=== PATIENT | female | born 1950 | race Caucasian/White ===

== ENCOUNTER 2017-08-17 10:30 | Outpatient (RCR) | payer MEDICARE, OTHER, SELFPAY ==
--- NOTE | 2017-07-03 15:32 | PT.OIE ---
Current Diagnoses Unilateral primary osteoarthritis, right knee (07/03/17) Presence of right artificial knee joint (07/03/17) Past Medical History (Last Reviewed 07/03/17 @ 14:44 by Mariola Xavier, PT) Arthritis (Chronic) Back pain (Chronic) Past Surgical History (Last Reviewed 07/03/17 @ 14:44 by Mariola Xavier, PT) S/P total knee arthroplasty (Acute) Hx of total knee arthroplasty (Chronic) Provider Visit Care Team Role Provider Type Johan Theodore MD Attending Provider Non-Staff Family Provider Primary Care Provider Specialty: Medical Address: [address] [place] [address], [facility] Phone: Fax: Email: Physical Therapy Initial Evaluation PT-OP-A Visit Information Start: 07/03/17 07:27 Freq: Status: Active Protocol: Document 07/03/17 12:16 [facility] (Rec: 07/03/17 15:31 [facility] [email or web address]) Out-Patient Physical Therapy Visit Information Visit Information Visit Type Initial Evaluation Visit Note 1 of the year Visit Start Time 12:15 Visit Stop Time 13:00 Total Visit Minutes 45 Visit Number 1 Number of PRINCIPAL MILITARY ANALYST Visits 0 PT-OP-B Current Condition Start: 07/03/17 07:27 Freq: Status: Active Protocol: Document 07/03/17 12:16 [facility] (Rec: 07/03/17 15:31 [facility] [email or web address]) Current Condition History of Current Condition Onset Date 06/17/17 Current Complaints recent R TKA History of Current Condition Pt had chronic knee pain and got TKA at [facility] in 06/17/17. She went home 06/20/17 and has HH PT up until yesterday. Pt saw on Thursday and is doing well. Pt has been walking daily for exercise. Prior Treatments and Tests PT Treatment Goals Patient/Caregiver Goals return to hiking & kayaking Prior Functional Status Baseline Function- ADL's Independent Baseline Function- Mobility Independent Baseline Function- Gait no AD & able to hike & walk Current Functional Impairments (Reported) Functional Limitations- Mobility/Gait Unable to hike or go for long walks PT-OP-C Subjective Start: 07/03/17 07:27 Freq: Status: Active Protocol: Document 07/03/17 12:16 [facility] (Rec: 07/03/17 15:31 [facility] [id number]) Patient Questionnaires Lower Extremity Functional Scale LEFS Score 9 LEFS Impairment 80 to 99% Impaired (Score 1-16 ) PT-OP-G Mobility & Gait Start: 07/03/17 07:27 Freq: Status: Active Protocol: Document 07/03/17 12:16 [facility] (Rec: 07/03/17 15:31 [facility] [email or web address]) OP Gait Assessment Assistive Devices Assistive Device Small Based Quad Cane Orthotic/Prosthetic Devices or Brace: No Gait Deviations General Gait Pattern Antalgic Flexed Trunk Comments Gait Comments Pt has dec push off with RLE & dec knee flex & ext during gait. Inc lat rotation of pelvis. PT-OP-J Posture/Palpation/Skin Start: 07/03/17 07:27 Freq: Status: Active Protocol: Document 07/03/17 12:16 [facility] (Rec: 07/03/17 15:31 [facility] [email or web address]) Skin Assessment Edema Assessment R knee Subjective Edema Description Pain Comments Pt has moderate swelling with incision looking clean & is healing well. She has 3 steri strips left. PT-OP-K Range of Motion Start: 07/03/17 07:27 Freq: Status: Active Protocol: Document 07/03/17 12:16 [facility] (Rec: 07/03/17 13:00 [facility] [id number]) Knee Goniometric Range of Motion Knee Measured in Degrees Right Flexion Active (degrees) 96 Extension Active (degrees) 8 PT-OP-M Strength Start: 07/03/17 07:27 Freq: Status: Active Protocol: Document 07/03/17 12:16 [facility] (Rec: 07/03/17 13:00 [facility] [id number]) Hip Strength Hip Manual Muscle Testing Right Flexion (L2) 4- Good- External Rotation 3+ Fair+ Internal Rotation 3+ Fair+ Left Flexion (L2) 5 Normal External Rotation 4+ Good+ Internal Rotation 4+ Good+ Knee Strength Knee Manual Muscle Testing Right Flexion (S2) 3+ Fair+ Extension (L3) 3+ Fair+ Left Flexion (S2) 5 Normal Extension (L3) 5 Normal Ankle/Foot Strength Ankle and Foot Manual Muscle Testing Right Dorsiflexion (L4) 4 Good Plantarflexion (S1) 4 Good Left Reason Not Measured WFL PT-OP-Q Treatments Start: 07/03/17 07:27 Freq: Status: Active Protocol: Document 07/03/17 12:16 [facility] (Rec: 07/03/17 13:00 [facility] [id number]) Cardio Equipment Recumbent Bicycle Duration (Minutes) 3 Resistance 1 Seat Position 8 Therapeutic Exercises Supine Exercises 7 Supine Exercise Name Quad set Side right Reps/Minutes 10 4 Supine Exercise Name SLR Side right Reps/Minutes 12 3 Supine Exercise Name passive ext Side right Reps/Minutes 1 min 2 Supine Exercise Name SAQ Side right Reps/Minutes 15 1 Supine Exercise Name heel slides Side right Equipment Used gait belt Reps/Minutes 10 Sitting Exercises 1 Sitting Exercise Name Seated knee flex Side right Reps/Minutes 3 x 15 sec holds Standing Exercises 1 Standing Exercise Name heel raises Side bilateral Reps/Minutes 20 PT-OP-T Assessment and Plan Start: 07/03/17 07:27 Freq: Status: Active Protocol: Document 07/03/17 12:16 [facility] (Rec: 07/03/17 15:31 [facility] [email or web address]) Physical Therapy Assessment Rehab Potential Rehabilitation Potential Good Evaluation Complexity Number of Personal Factors/Comorbidities 3 or More Number of Body Systems Impaired 4 or More Clinical Presentation at Evaluation Evolving Impairments Impairments Balance Edema Gait Pain Soft Tissue Mobility Strength Goals Four Impairment rec activities Mcc Goal (LTG) Pt will be able to hike & kayak w/o pain. LTG Duration 2 months Three Impairment gait Short Term Goal (STG) Pt will amb without AD with normal gait. STG Duration 4 weeks Mcc Goal (LTG) up/down stairs & hills without pain & good mechanics. LTG Duration 2 months Two Impairment ROM Short Term Goal (STG) 4-115 STG Duration 4 weeks [employer] Dealer Goal (LTG) Pt will have 0-125 degrees ROM to allow going up/down stairs . LTG Duration 2 months One Impairment strength Mcc Goal (LTG) 5/5 LE strength to allow pt to return to normal activities. LTG Duration 2 months Physical Therapy Plan Frequency and Duration Frequency of Treatment 2x/Week Duration of Treatment 2 months Plan of Care Start Date 07/03/17 Plan of Care End Date 09/02/17 Therapeutic Interventions Therapeutic Interventions Balance Training Gait Training Home Exercise Program Joint Mobilizations Manual Therapy Patient/Caregiver Education Soft Tissue Mobilization Taping Therapeutic Exercises Modalities Cold Pack/Ice Massage Electric Stimulation Hot Packs Next Visit Focus/Plan Next Visit Plan manual stretching, mini squats Provider Signature Date
--- NOTE | 2017-07-03 15:32 | PT.OPPOC ---
Current Diagnoses Unilateral primary osteoarthritis, right knee (07/03/17) Presence of right artificial knee joint (07/03/17) Provider Visit Care Team Role Provider Type Johan Theodore MD Attending Provider Non-Staff Family Provider Primary Care Provider Specialty: Medical Address: [address] [place] [address], [id number] Phone: Fax: Email: Plan Of Care PT-OP-T Assessment and Plan Start: 07/03/17 07:27 Freq: Status: Active Protocol: Document 07/03/17 12:16 [facility] (Rec: 07/03/17 15:31 [facility] [email or web address]) Physical Therapy Assessment Rehab Potential Rehabilitation Potential Good Evaluation Complexity Number of Personal Factors/Comorbidities 3 or More Number of Body Systems Impaired 4 or More Clinical Presentation at Evaluation Evolving Impairments Impairments Balance Edema Gait Pain Soft Tissue Mobility Strength Goals Four Impairment rec activities Fpc Goal (LTG) Pt will be able to hike & kayak w/o pain. LTG Duration 2 months Three Impairment gait Short Term Goal (STG) Pt will amb without AD with normal gait. STG Duration 4 weeks Fpc Goal (LTG) up/down stairs & hills without pain & good mechanics. LTG Duration 2 months Two Impairment ROM Short Term Goal (STG) 4-115 STG Duration 4 weeks Director Orange Goal (LTG) Pt will have 0-125 degrees ROM to allow going up/down stairs . LTG Duration 2 months One Impairment strength Director Orange Goal (LTG) 5/5 LE strength to allow pt to return to normal activities. LTG Duration 2 months Physical Therapy Plan Frequency and Duration Frequency of Treatment 2x/Week Duration of Treatment 2 months Plan of Care Start Date 07/03/17 Plan of Care End Date 09/02/17 Therapeutic Interventions Therapeutic Interventions Balance Training Gait Training Home Exercise Program Joint Mobilizations Manual Therapy Patient/Caregiver Education Soft Tissue Mobilization Taping Therapeutic Exercises Modalities Cold Pack/Ice Massage Electric Stimulation Hot Packs Next Visit Focus/Plan Next Visit Plan manual stretching, mini squats Plan of Care Dates Plan of Care Start Date 07/03/17 Plan of Care End Date 09/02/17 Please Sign and Return: I have reviewed this Plan of Care and certify that the skilled therapy services above are required to meet the patient???s needs. Physician Signature Date Printed Name and Credentials
--- NOTE | 2017-07-08 16:26 | PT.OTN ---
Current Diagnoses Unilateral primary osteoarthritis, right knee (07/08/17) Presence of right artificial knee joint (07/08/17) Physical Therapy Treatment Note PT-OP-A Visit Information Start: 07/03/17 07:27 Freq: Status: Active Protocol: Document 07/08/17 10:30 [facility] (Rec: 07/08/17 15:18 [facility] [email or web address]) Out-Patient Physical Therapy Visit Information Visit Information Visit Type Treatment Note Visit Start Time 10:35 Visit Stop Time 11:25 Total Visit Minutes 55 Visit Number 2 Number of STOVE MECHANIC Visits 1 Evaluation Information Evaluation Date 07/03/17 PT-OP-B Current Condition Start: 07/03/17 07:27 Freq: Status: Active Protocol: Document 07/03/17 12:16 [facility] (Rec: 07/03/17 15:31 [facility] [email or web address]) Current Condition History of Current Condition Onset Date 06/17/17 Current Complaints recent R TKA History of Current Condition Pt had chronic knee pain and got TKA at [facility] in 06/17/17. She went home 06/20/17 and has HH PT up until yesterday. Pt saw on Thursday and is doing well. Pt has been walking daily for exercise. Prior Treatments and Tests HH PT Treatment Goals Patient/Caregiver Goals return to hiking & kayaking Prior Functional Status Baseline Function- ADL's Independent Baseline Function- Mobility Independent Baseline Function- Gait no AD & able to hike & walk Current Functional Impairments (Reported) Functional Limitations- Mobility/Gait Unable to hike or go for long walks PT-OP-C Subjective Start: 07/03/17 07:27 Freq: Status: Active Protocol: Document 07/08/17 10:30 [facility] (Rec: 07/08/17 15:18 [facility] [email or web address]) OP-PT Subjective Patient Comments Patient Comments Pt states she having pain with squats at home. Protocol: Document 07/08/17 10:30 [facility] (Rec: 07/08/17 15:18 [facility] [email or web address]) Cardio Equipment Recumbent Stepper (Sci-Fit) Duration (Minutes) 8 Resistance 1 Gym Equipment Shuttle Recovery Unilateral Squats Details right Resistance 25 Shuttle Recovery Platform Stable Reps/Time 15 Bilateral Squats Resistance 62 Shuttle Recovery Platform Stable Reps/Time 20 Therapeutic Ball 1 Exercise Details Heel slides/ curls Ball Size/Color red Body Position Supine Reps/Duration 10 Therapeutic Exercises Supine Exercises 7 Supine Exercise Name Quad set Side right Reps/Minutes 10 4 Supine Exercise Name SLR Side right Reps/Minutes 12 Sidelying Exercises 1 Sidelying Exercise Name hip Abd Side bilateral Reps/Minutes 15 Manual Therapy Treatment Manual Techniques 1 Type manual flex and extension stretch Body Location right knee Body Position Supine Reps/Duration 15 PT-OP-R Modalities Start: 07/03/17 07:27 Freq: Status: Active Protocol: Document 07/08/17 10:30 [facility] (Rec: 07/08/17 15:18 [facility] [email or web address]) Hot Pack/Cold Pack Treatment Cold Pack Location right knee anterior and posterior Patient Position Hooklying Treatment Duration (minutes) 10 Patient Tolerance Good PT-OP-T Assessment and Plan Start: 07/03/17 07:27 Freq: Status: Active Protocol: Document 07/08/17 10:30 [facility] (Rec: 07/08/17 16:15 [facility] [email or web address]) Physical Therapy Assessment Assessment Summary Assessment Pt improved with knee ROM. Pt has good scar healing. She did need cues for HEP to improved tolerance. Physical Therapy Plan Frequency and Duration Frequency of Treatment 2x/Week Duration of Treatment 2 months Plan of Care Start Date 07/03/17 Plan of Care End Date 09/02/17 Next Visit Focus/Plan Next Visit Plan Review HEP and progress knee ROM
--- NOTE | 2017-07-14 12:03 | PT.OTN ---
Current Diagnoses Unilateral primary osteoarthritis, right knee (07/14/17) Presence of right artificial knee joint (07/14/17) Physical Therapy Treatment Note PT-OP-A Visit Information Start: 07/03/17 07:27 Freq: Status: Active Protocol: Document 07/14/17 11:16 [facility] (Rec: 07/14/17 12:02 [facility] [id number]) Out-Patient Physical Therapy Visit Information Visit Information Visit Type Treatment Note Visit Start Time 11:15 Visit Stop Time 12:15 Total Visit Minutes 55 Visit Number 3 Number of TYPING CHECKER Visits 0 PT-OP-B Current Condition Start: 07/03/17 07:27 Freq: Status: Active Protocol: Document 07/03/17 12:16 [facility] (Rec: 07/03/17 15:31 [facility] [email or web address]) Current Condition History of Current Condition Onset Date 06/17/17 Current Complaints recent R TKA History of Current Condition Pt had chronic knee pain and got TKA at [facility] in 06/17/17. She went home 06/20/17 and has HH PT up until yesterday. Pt saw on Thursday and is doing well. Pt has been walking daily for exercise. Prior Treatments and Tests PT Treatment Goals Patient/Caregiver Goals return to hiking & kayaking Prior Functional Status Baseline Function- ADL's Independent Baseline Function- Mobility Independent Baseline Function- Gait no AD & able to hike & walk Current Functional Impairments (Reported) Functional Limitations- Mobility/Gait Unable to hike or go for long walks PT-OP-C Subjective Start: 07/03/17 07:27 Freq: Status: Active Protocol: Document 07/14/17 11:16 [facility] (Rec: 07/14/17 12:02 [facility] [id number]) OP-PT Subjective Patient Comments Patient Comments Pt stopped pain meds. Reports she has been walking, which is helping. PT-OP-G Mobility & Gait Start: 07/03/17 07:27 Freq: Status: Active Protocol: Document 07/03/17 12:16 [facility] (Rec: 07/03/17 15:31 [facility] [email or web address]) OP Gait Assessment Assistive Devices Assistive Device Small Based Quad Cane Orthotic/Prosthetic Devices or Brace: No Gait Deviations General Gait Pattern Antalgic Flexed Trunk Comments Gait Comments Pt has dec push off with RLE & dec knee flex & ext during gait. Inc lat rotation of pelvis. PT-OP-J Posture/Palpation/Skin Start: 07/03/17 07:27 Freq: Status: Active Protocol: Document 07/03/17 12:16 [facility] (Rec: 07/03/17 15:31 [facility] [email or web address]) Skin Assessment Edema Assessment R knee Subjective Edema Description Pain Comments Pt has moderate swelling with incision looking clean & is healing well. She has 3 steri strips left. PT-OP-K Range of Motion Start: 07/03/17 07:27 Freq: Status: Active Protocol: Document 07/03/17 12:16 [facility] (Rec: 07/03/17 13:00 [facility] [id number]) Knee Goniometric Range of Motion Knee Measured in Degrees Right Flexion Active (degrees) 96 Extension Active (degrees) 8 PT-OP-M Strength Start: 07/03/17 07:27 Freq: Status: Active Protocol: Document 07/03/17 12:16 [facility] (Rec: 07/03/17 13:00 [facility] [id number]) Hip Strength Hip Manual Muscle Testing Right Flexion (L2) 4- Good- External Rotation 3+ Fair+ Internal Rotation 3+ Fair+ Left Flexion (L2) 5 Normal External Rotation 4+ Good+ Internal Rotation 4+ Good+ Knee Strength Knee Manual Muscle Testing Right Flexion (S2) 3+ Fair+ Extension (L3) 3+ Fair+ Left Flexion (S2) 5 Normal Extension (L3) 5 Normal Ankle/Foot Strength Ankle and Foot Manual Muscle Testing Right Dorsiflexion (L4) 4 Good Plantarflexion (S1) 4 Good Left Reason Not Measured WFL PT-OP-Q Treatments Start: 07/03/17 07:27 Freq: Status: Active Protocol: Document 07/14/17 11:16 [facility] (Rec: 07/14/17 12:02 [facility] [id number]) Cardio Equipment Recumbent Bicycle Duration (Minutes) 6 Resistance 2 Seat Position 6 Gym Equipment Shuttle Recovery Unilateral Squats Details right Resistance 37 Shuttle Recovery Platform Stable Reps/Time 20 Bilateral Squats Resistance 75 Shuttle Recovery Platform Stable Reps/Time 20 Therapeutic Exercises Supine Exercises 7 Supine Exercise Name Quad set Side right Reps/Minutes 5 4 Supine Exercise Name SLR Side right Reps/Minutes 12 2 Supine Exercise Name SAQ Side right Reps/Minutes 15 Sidelying Exercises 1 Sidelying Exercise Name hip Abd Side bilateral Reps/Minutes 15 Sitting Exercises 1 Sitting Exercise Name Seated knee flex Side right Reps/Minutes 3 x 15 sec holds Standing Exercises 3 Standing Exercise Name squat Resistance tied around knees Equipment Used L2 band Reps/Minutes 2x10 2 Standing Exercise Name wall squat mini Resistance tband around knees L2 Reps/Minutes 2x10 1 Standing Exercise Name heel raises Side bilateral Reps/Minutes 20 Comments single leg Manual Therapy Treatment Manual Techniques 1 Type manual flex and extension stretch Body Location right knee Body Position Supine Reps/Duration 5 PT-OP-R Modalities Start: 07/03/17 07:27 Freq: Status: Active Protocol: Document 07/14/17 11:16 [facility] (Rec: 07/14/17 12:02 [facility] [id number]) Hot Pack/Cold Pack Treatment Cold Pack Location right knee anterior and posterior Patient Position Hooklying Treatment Duration (minutes) 10 Patient Tolerance Good PT-OP-T Assessment and Plan Start: 07/03/17 07:27 Freq: Status: Active Protocol: Document 07/14/17 11:16 [facility] (Rec: 07/14/17 12:02 [facility] [id number]) Physical Therapy Assessment Assessment Summary Assessment Improving knee ROM to 5-110 today before exercsies, but after bike. Pt required cueing for squat form and has difficulty with hip positiong during squat & requires cueing . Physical Therapy Plan Frequency and Duration Frequency of Treatment 2x/Week Duration of Treatment 2 months Plan of Care Start Date 07/03/17 Plan of Care End Date 09/02/17 Next Visit Focus/Plan Next Visit Plan Work on squat form & knee rom Please Sign and Return: I have reviewed this Plan of Care and certify that the skilled therapy services above are required to meet the patient???s needs. Physician Signature Date Printed Name and Credentials Clinical Instructor Signature Printed Name and Credentials
--- NOTE | 2017-07-17 13:45 | PT.OTN ---
Current Diagnoses Unilateral primary osteoarthritis, right knee (07/17/17) Presence of right artificial knee joint (07/17/17) Physical Therapy Treatment Note PT-OP-A Visit Information Start: 07/03/17 07:27 Freq: Status: Active Protocol: Document 07/17/17 13:05 [facility] (Rec: 07/17/17 13:44 [facility] [id number]) Out-Patient Physical Therapy Visit Information Visit Information Visit Type Treatment Note Visit Start Time 11:15 Visit Stop Time 12:15 Total Visit Minutes 55 Visit Number 3 Number of AEROSPACE PHYSIOLOGICAL TECHNICIAN Visits 0 PT-OP-B Current Condition Start: 07/03/17 07:27 Freq: Status: Active Protocol: Document 07/03/17 12:16 [facility] (Rec: 07/03/17 15:31 [facility] [id number]) Current Condition History of Current Condition Onset Date 06/17/17 Current Complaints recent R TKA History of Current Condition Pt had chronic knee pain and got TKA at [facility] in 06/17/17. She went home 06/20/17 and has HH PT up until yesterday. Pt saw on Thursday and is doing well. Pt has been walking daily for exercise. Prior Treatments and Tests PT Treatment Goals Patient/Caregiver Goals return to hiking & kayaking Prior Functional Status Baseline Function- ADL's Independent Baseline Function- Mobility Independent Baseline Function- Gait no AD & able to hike & walk Current Functional Impairments (Reported) Functional Limitations- Mobility/Gait Unable to hike or go for long walks PT-OP-C Subjective Start: 07/03/17 07:27 Freq: Status: Active Protocol: Document 07/17/17 13:05 [facility] (Rec: 07/17/17 13:44 [facility] [id number]) OP-PT Subjective Patient Comments Patient Comments Fernando thighs were sore are last session for 2 days. PT-OP-G Mobility & Gait Start: 07/03/17 07:27 Freq: Status: Active Protocol: Document 07/03/17 12:16 [facility] (Rec: 07/03/17 15:31 [facility] [id number]) OP Gait Assessment Assistive Devices Assistive Device Small Based Quad Cane Orthotic/Prosthetic Devices or Brace: No Gait Deviations General Gait Pattern Antalgic Flexed Trunk Comments Gait Comments Pt has dec push off with RLE & dec knee flex & ext during gait. Inc lat rotation of pelvis. PT-OP-J Posture/Palpation/Skin Start: 07/03/17 07:27 Freq: Status: Active Protocol: Document 07/03/17 12:16 [facility] (Rec: 07/03/17 15:31 [facility] [id number]) Skin Assessment Edema Assessment R knee Subjective Edema Description Pain Comments Pt has moderate swelling with incision looking clean & is healing well. She has 3 steri strips left. PT-OP-K Range of Motion Start: 07/03/17 07:27 Freq: Status: Active Protocol: Document 07/03/17 12:16 [facility] (Rec: 07/03/17 13:00 [facility] [id number]) Knee Goniometric Range of Motion Knee Measured in Degrees Right Flexion Active (degrees) 96 Extension Active (degrees) 8 PT-OP-M Strength Start: 07/03/17 07:27 Freq: Status: Active Protocol: Document 07/03/17 12:16 [facility] (Rec: 07/03/17 13:00 [facility] [id number]) Hip Strength Hip Manual Muscle Testing Right Flexion (L2) 4- Good- External Rotation 3+ Fair+ Internal Rotation 3+ Fair+ Left Flexion (L2) 5 Normal External Rotation 4+ Good+ Internal Rotation 4+ Good+ Knee Strength Knee Manual Muscle Testing Right Flexion (S2) 3+ Fair+ Extension (L3) 3+ Fair+ Left Flexion (S2) 5 Normal Extension (L3) 5 Normal Ankle/Foot Strength Ankle and Foot Manual Muscle Testing Right Dorsiflexion (L4) 4 Good Plantarflexion (S1) 4 Good Left Reason Not Measured WFL PT-OP-Q Treatments Start: 07/03/17 07:27 Freq: Status: Active Protocol: Document 07/17/17 13:05 [facility] (Rec: 07/17/17 13:44 [facility] [id number]) Cardio Equipment Recumbent Bicycle Duration (Minutes) 6 Resistance 3 Seat Position 6 Gym Equipment Therapeutic Ball 1 Exercise Details Heel slides/ curls Ball Size/Color red Body Position Supine Reps/Duration 20 Therapeutic Exercises Supine Exercises 5 Supine Exercise Name wall slides Reps/Minutes 20 7 Supine Exercise Name Quad set Side right Reps/Minutes 10 2 Supine Exercise Name SAQ Side right Resistance 1# Reps/Minutes 30 Sidelying Exercises 1 Sidelying Exercise Name hip Abd Side bilateral Reps/Minutes 15 Manual Therapy Treatment Soft Tissue Mobilization 1 Body Location efflurage to knee Mobilization Type Rolling Intensity/Depth Moderate Manual Techniques 1 Type manual flex and extension stretch Body Location right knee Body Position Supine PT-OP-R Modalities Start: 07/03/17 07:27 Freq: Status: Active Protocol: Document 07/17/17 13:05 [facility] (Rec: 07/17/17 13:45 [facility] [id number]) Hot Pack/Cold Pack Treatment Cold Pack Location right knee anterior and posterior Patient Position Hooklying Treatment Duration (minutes) 10 Patient Tolerance Good PT-OP-T Assessment and Plan Start: 07/03/17 07:27 Freq: Status: Active Protocol: Document 07/17/17 13:05 [facility] (Rec: 07/17/17 13:44 [facility] [id number]) Physical Therapy Assessment Assessment Summary Assessment D/t soreness, focused on ROM & HS strength today vs quad. WIll return to quad & glute strength next session. Physical Therapy Plan Frequency and Duration Frequency of Treatment 2x/Week Duration of Treatment 2 months Plan of Care Start Date 07/03/17 Plan of Care End Date 09/02/17 Next Visit Focus/Plan Next Visit Plan Work on squat form & knee rom Please Sign and Return: I have reviewed this Plan of Care and certify that the skilled therapy services above are required to meet the patient???s needs. Physician Signature Date Printed Name and Credentials Clinical Instructor Signature Printed Name and Credentials
--- NOTE | 2017-07-22 12:20 | PT.OTN ---
Current Diagnoses Unilateral primary osteoarthritis, right knee (07/22/17) Presence of right artificial knee joint (07/22/17) Physical Therapy Treatment Note PT-OP-A Visit Information Start: 07/03/17 07:27 Freq: Status: Active Protocol: Document 07/22/17 12:08 EA (Rec: 07/22/17 12:20 EA [id number]) Out-Patient Physical Therapy Visit Information Visit Information Visit Type Treatment Note PT-OP-B Current Condition Start: 07/03/17 07:27 Freq: Status: Active Protocol: Document 07/03/17 12:16 [facility] (Rec: 07/03/17 15:31 [facility] [id number]) Current Condition History of Current Condition Onset Date 06/17/17 Current Complaints recent R TKA History of Current Condition Pt had chronic knee pain and got TKA at [facility] in 06/17/17. She went home 06/20/17 and has HH PT up until yesterday. Pt saw MD on Thursday and is doing well. Pt has been walking daily for exercise. Prior Treatments and Tests PT Treatment Goals Patient/Caregiver Goals return to hiking & kayaking Prior Functional Status Baseline Function- ADL's Independent Baseline Function- Mobility Independent Baseline Function- Gait no AD & able to hike & walk Current Functional Impairments (Reported) Functional Limitations- Mobility/Gait Unable to hike or go for long walks PT-OP-C Subjective Start: 07/03/17 07:27 Freq: Status: Active Protocol: Document 07/22/17 12:08 EA (Rec: 07/22/17 12:20 EA [id number]) OP-PT Subjective Patient Comments Patient Comments No new complaint at this time; reports right knee pain is much less at this time. PT-OP-G Mobility & Gait Start: 07/03/17 07:27 Freq: Status: Active Protocol: Document 07/03/17 12:16 [facility] (Rec: 07/03/17 15:31 [facility] [id number]) OP Gait Assessment Assistive Devices Assistive Device Small Based Quad Cane Orthotic/Prosthetic Devices or Brace: No Gait Deviations General Gait Pattern Antalgic Flexed Trunk Comments Gait Comments Pt has dec push off with RLE & dec knee flex & ext during gait. Inc lat rotation of pelvis. PT-OP-J Posture/Palpation/Skin Start: 07/03/17 07:27 Freq: Status: Active Protocol: Document 07/03/17 12:16 [facility] (Rec: 07/03/17 15:31 [facility] [id number]) Skin Assessment Edema Assessment R knee Subjective Edema Description Pain Comments Pt has moderate swelling with incision looking clean & is healing well. She has 3 steri strips left. PT-OP-K Range of Motion Start: 07/03/17 07:27 Freq: Status: Active Protocol: Document 07/03/17 12:16 [facility] (Rec: 07/03/17 13:00 [facility] [id number]) Knee Goniometric Range of Motion Knee Measured in Degrees Right Flexion Active (degrees) 96 Extension Active (degrees) 8 PT-OP-M Strength Start: 07/03/17 07:27 Freq: Status: Active Protocol: Document 07/03/17 12:16 [facility] (Rec: 07/03/17 13:00 [facility] [id number]) Hip Strength Hip Manual Muscle Testing Right Flexion (L2) 4- Good- External Rotation 3+ Fair+ Internal Rotation 3+ Fair+ Left Flexion (L2) 5 Normal External Rotation 4+ Good+ Internal Rotation 4+ Good+ Knee Strength Knee Manual Muscle Testing Right Flexion (S2) 3+ Fair+ Extension (L3) 3+ Fair+ Left Flexion (S2) 5 Normal Extension (L3) 5 Normal Ankle/Foot Strength Ankle and Foot Manual Muscle Testing Right Dorsiflexion (L4) 4 Good Plantarflexion (S1) 4 Good Left Reason Not Measured WFL PT-OP-Q Treatments Start: 07/03/17 07:27 Freq: Status: Active Protocol: Document 07/22/17 12:08 EA (Rec: 07/22/17 12:20 EA [id number]) Therapeutic Exercises Supine Exercises 5 Supine Exercise Name wall slides Reps/Minutes 20 7 Supine Exercise Name Quad set Side right Reps/Minutes 10 2 Supine Exercise Name FAQ Side right Resistance 2-5# Reps/Minutes 30 Sidelying Exercises 1 Sidelying Exercise Name hip Abd Side bilateral Equipment Used G AW Reps/Minutes 15 Sitting Exercises 1 Sitting Exercise Name Seated knee flex Side right Resistance YTB Reps/Minutes x 12 reps x 2 sets Standing Exercises 3 Standing Exercise Name squat Reps/Minutes 2x10 1 Standing Exercise Name heel raises Side bilateral Reps/Minutes 20 Comments single leg Other Exercises 1 Other Exercise Name Stairs steps up at 4-6 Resistance BW Reps/Minutes x 10 reps x 2 PT-OP-R Modalities Start: 07/03/17 07:27 Freq: Status: Active Protocol: Document 07/17/17 13:05 [facility] (Rec: 07/17/17 13:45 [facility] [id number]) Hot Pack/Cold Pack Treatment Cold Pack Location right knee anterior and posterior Patient Position Hooklying Treatment Duration (minutes) 10 Patient Tolerance Good PT-OP-T Assessment and Plan Start: 07/03/17 07:27 Freq: Status: Active Protocol: Document 07/22/17 12:08 EA (Rec: 07/22/17 12:20 EA [id number]) Physical Therapy Assessment Assessment Summary Assessment Tolerated treatment with no signs of discofort except with 4 stair descent. Patient knee measured 117 deg flexion and -4 hyperextension. Physical Therapy Plan Next Visit Focus/Plan Next Visit Plan Advance as tolerated Please Sign and Return: I have reviewed this Plan of Care and certify that the skilled therapy services above are required to meet the patient???s needs. Physician Signature Date Printed Name and Credentials Clinical Instructor Signature Printed Name and Credentials
--- NOTE | 2017-07-24 11:43 | PT.OTN ---
Current Diagnoses Unilateral primary osteoarthritis, right knee (07/24/17) Presence of right artificial knee joint (07/24/17) Physical Therapy Treatment Note PT-OP-A Visit Information Start: 07/03/17 07:27 Freq: Status: Active Protocol: Document 07/24/17 10:30 [facility] (Rec: 07/24/17 11:43 [facility] [id number]) Out-Patient Physical Therapy Visit Information Visit Information Visit Type Treatment Note Visit Start Time 10:30 Visit Stop Time 11:25 Visit Number 08/02 g code Number of BOOKMAKER'S CLERK Visits 1 Evaluation Information Evaluation Date 07/03/17 PT-OP-B Current Condition Start: 07/03/17 07:27 Freq: Status: Active Protocol: Document 07/03/17 12:16 [facility] (Rec: 07/03/17 15:31 [facility] [id number]) Current Condition History of Current Condition Onset Date 06/17/17 Current Complaints recent R TKA History of Current Condition Pt had chronic knee pain and got TKA at [facility] in 06/17/17. She went home 06/20/17 and has HH PT up until yesterday. Pt saw on Thursday and is doing well. Pt has been walking daily for exercise. Prior Treatments and Tests HH PT Treatment Goals Patient/Caregiver Goals return to hiking & kayaking Prior Functional Status Baseline Function- ADL's Independent Baseline Function- Mobility Independent Baseline Function- Gait no AD & able to hike & walk Current Functional Impairments (Reported) Functional Limitations- Mobility/Gait Unable to hike or go for long walks PT-OP-C Subjective Start: 07/03/17 07:27 Freq: Status: Active Protocol: Document 07/24/17 10:30 [facility] (Rec: 07/24/17 10:59 [facility] [id number]) OP-PT Subjective Patient Comments Patient Comments Not sore, she feels extension needs improvement. Patient Reported Progress Improving PT-OP-Q Treatments Start: 07/03/17 07:27 Freq: Status: Active Protocol: Document 07/24/17 10:30 [facility] (Rec: 07/24/17 10:59 [facility] [id number]) Cardio Equipment Recumbent Bicycle Duration (Minutes) 6 Resistance 3 Seat Position 6 Therapeutic Exercises Supine Exercises 4 Supine Exercise Name SLR Side right Reps/Minutes 12 2 Supine Exercise Name FAQ Side right Resistance 4# Reps/Minutes 30 Sidelying Exercises 1 Sidelying Exercise Name hip Abd Side bilateral Equipment Used G AW Reps/Minutes 15 Standing Exercises 4 Standing Exercise Name knee extension Side right Resistance level 2 3 Standing Exercise Name squat Reps/Minutes 2x10 1 Standing Exercise Name heel raises Side bilateral Reps/Minutes 20 Comments single leg Manual Therapy Treatment Manual Techniques 1 Type manual flex and extension stretch Body Location right knee Body Position Supine PT-OP-R Modalities Start: 07/03/17 07:27 Freq: Status: Active Protocol: Document 07/24/17 10:30 [facility] (Rec: 07/24/17 10:59 [facility] [id number]) Hot Pack/Cold Pack Treatment Cold Pack Location right knee anterior and posterior Patient Position Hooklying Treatment Duration (minutes) 10 Patient Tolerance Good PT-OP-T Assessment and Plan Start: 07/03/17 07:27 Freq: Status: Active Protocol: Document 07/24/17 10:30 [facility] (Rec: 07/24/17 11:43 [facility] [id number]) Physical Therapy Assessment Assessment Summary Assessment PT improving with ROM and strength. She had no pain with strengthening. Physical Therapy Plan Frequency and Duration Frequency of Treatment 2x/Week Duration of Treatment 2 months Plan of Care Start Date 07/03/17 Plan of Care End Date 09/02/17 Next Visit Focus/Plan Next Note Type Treatment Note Next Visit Plan Progress strength and knee ROM
--- NOTE | 2017-07-28 13:24 | PT.OTN ---
Current Diagnoses Unilateral primary osteoarthritis, right knee (07/28/17) Presence of right artificial knee joint (07/28/17) Physical Therapy Treatment Note PT-OP-A Visit Information Start: 07/03/17 07:27 Freq: Status: Active Protocol: Document 07/28/17 13:16 EA (Rec: 07/28/17 13:24 EA [id number]) Out-Patient Physical Therapy Visit Information Visit Information Visit Type Treatment Note Visit Start Time 12:15 Visit Stop Time 13:00 Visit Number 7/ Number of QUALITY ASSURANCE COACH Visits 1 PT-OP-B Current Condition Start: 07/03/17 07:27 Freq: Status: Active Protocol: Document 07/03/17 12:16 [facility] (Rec: 07/03/17 15:31 [facility] [id number]) Current Condition History of Current Condition Onset Date 06/17/17 Current Complaints recent R TKA History of Current Condition Pt had chronic knee pain and got TKA at [facility] in 06/17/17. She went home 06/20/17 and has HH PT up until yesterday. Pt saw on Thursday and is doing well. Pt has been walking daily for exercise. Prior Treatments and Tests PT Treatment Goals Patient/Caregiver Goals return to hiking & kayaking Prior Functional Status Baseline Function- ADL's Independent Baseline Function- Mobility Independent Baseline Function- Gait no AD & able to hike & walk Current Functional Impairments (Reported) Functional Limitations- Mobility/Gait Unable to hike or go for long walks PT-OP-C Subjective Start: 07/03/17 07:27 Freq: Status: Active Protocol: Document 07/28/17 13:16 EA (Rec: 07/28/17 13:24 EA [id number]) OP-PT Subjective Patient Comments Patient Comments Patient reports no c/o pain at this time; states compliant with HEP Patient Reported Progress Improving PT-OP-G Mobility & Gait Start: 07/03/17 07:27 Freq: Status: Active Protocol: Document 07/03/17 12:16 [facility] (Rec: 07/03/17 15:31 [facility] [id number]) OP Gait Assessment Assistive Devices Assistive Device Small Based Quad Cane Orthotic/Prosthetic Devices or Brace: No Gait Deviations General Gait Pattern Antalgic Flexed Trunk Comments Gait Comments Pt has dec push off with RLE & dec knee flex & ext during gait. Inc lat rotation of pelvis. PT-OP-J Posture/Palpation/Skin Start: 07/03/17 07:27 Freq: Status: Active Protocol: Document 07/03/17 12:16 [facility] (Rec: 07/03/17 15:31 [facility] [id number]) Skin Assessment Edema Assessment R knee Subjective Edema Description Pain Comments Pt has moderate swelling with incision looking clean & is healing well. She has 3 steri strips left. PT-OP-K Range of Motion Start: 07/03/17 07:27 Freq: Status: Active Protocol: Document 07/03/17 12:16 [facility] (Rec: 07/03/17 13:00 [facility] [id number]) Knee Goniometric Range of Motion Knee Measured in Degrees Right Flexion Active (degrees) 96 Extension Active (degrees) 8 PT-OP-M Strength Start: 07/03/17 07:27 Freq: Status: Active Protocol: Document 07/03/17 12:16 [facility] (Rec: 07/03/17 13:00 [facility] [id number]) Hip Strength Hip Manual Muscle Testing Right Flexion (L2) 4- Good- External Rotation 3+ Fair+ Internal Rotation 3+ Fair+ Left Flexion (L2) 5 Normal External Rotation 4+ Good+ Internal Rotation 4+ Good+ Knee Strength Knee Manual Muscle Testing Right Flexion (S2) 3+ Fair+ Extension (L3) 3+ Fair+ Left Flexion (S2) 5 Normal Extension (L3) 5 Normal Ankle/Foot Strength Ankle and Foot Manual Muscle Testing Right Dorsiflexion (L4) 4 Good Plantarflexion (S1) 4 Good Left Reason Not Measured WFL PT-OP-Q Treatments Start: 07/03/17 07:27 Freq: Status: Active Protocol: Document 07/28/17 13:16 EA (Rec: 07/28/17 13:24 EA [id number]) Cardio Equipment Recumbent Bicycle Duration (Minutes) 6 Resistance 4 Seat Position 6 Gym Equipment Shuttle Recovery Unilateral Squats Details right Resistance 37 Shuttle Recovery Platform Stable Reps/Time 20 Bilateral Squats Resistance 75 Shuttle Recovery Platform Stable Reps/Time 20 Therapeutic Exercises Supine Exercises 5 Supine Exercise Name wall slides Reps/Minutes 20 Sitting Exercises 1 Sitting Exercise Name Seated knee flex/ extension Side right Resistance GTB and 4 lbs AW Reps/Minutes x 12 reps x 2 sets Standing Exercises 3 Standing Exercise Name Railing side step squat with heel raises Equipment Used YTB Reps/Minutes x 2 lines 1 Standing Exercise Name heel raises Side bilateral Reps/Minutes 20 Comments single leg Other Exercises 1 Other Exercise Name Stairs steps up at 4-6 Resistance BW Reps/Minutes x 10 reps x 2 Manual Therapy Treatment Soft Tissue Mobilization 1 Body Location efflurage to knee Mobilization Type Rolling Intensity/Depth Moderate PT-OP-R Modalities Start: 07/03/17 07:27 Freq: Status: Active Protocol: Document 07/28/17 13:24 EA (Rec: 07/28/17 13:24 EA [id number]) Hot Pack/Cold Pack Treatment Cold Pack Location right knee Patient Position Hooklying Patient Tolerance Fair PT-OP-T Assessment and Plan Start: 07/03/17 07:27 Freq: Status: Active Protocol: Document 07/28/17 13:16 EA (Rec: 07/28/17 13:24 EA [id number]) Physical Therapy Assessment Assessment Summary Assessment Tolerated treatment well with discomfort noted. Physical Therapy Plan Next Visit Focus/Plan Next Note Type Treatment Note Next Visit Plan Progress strengthening: Close to open chain Please Sign and Return: I have reviewed this Plan of Care and certify that the skilled therapy services above are required to meet the patient?s needs. Physician Signature Date Printed Name and Credentials Clinical Instructor Signature Printed Name and Credentials
--- NOTE | 2017-07-30 14:30 | PT.OTN ---
Current Diagnoses Unilateral primary osteoarthritis, right knee (07/30/17) Presence of right artificial knee joint (07/30/17) Physical Therapy Treatment Note PT-OP-A Visit Information Start: 07/03/17 07:27 Freq: Status: Active Protocol: Document 07/30/17 13:42 EA (Rec: 07/30/17 13:47 EA [id number]) Out-Patient Physical Therapy Visit Information Visit Information Visit Type Treatment Note Total Visit Minutes 55 Visit Number 10/02 PT-OP-B Current Condition Start: 07/03/17 07:27 Freq: Status: Active Protocol: Document 07/03/17 12:16 [facility] (Rec: 07/03/17 15:31 [facility] [id number]) Current Condition History of Current Condition Onset Date 06/17/17 Current Complaints recent R TKA History of Current Condition Pt had chronic knee pain and got TKA at [facility] in 06/17/17. She went home 06/20/17 and has HH PT up until yesterday. Pt saw MD on Thursday and is doing well. Pt has been walking daily for exercise. Prior Treatments and Tests PT Treatment Goals Patient/Caregiver Goals return to hiking & kayaking Prior Functional Status Baseline Function- ADL's Independent Baseline Function- Mobility Independent Baseline Function- Gait no AD & able to hike & walk Current Functional Impairments (Reported) Functional Limitations- Mobility/Gait Unable to hike or go for long walks PT-OP-C Subjective Start: 07/03/17 07:27 Freq: Status: Active Protocol: Document 07/30/17 13:42 EA (Rec: 07/30/17 13:47 EA [id number]) OP-PT Subjective Patient Comments Patient Comments Patient reprts both quads are quite sore today started a day after last session; denies increased pain to knee. PT-OP-G Mobility & Gait Start: 07/03/17 07:27 Freq: Status: Active Protocol: Document 07/03/17 12:16 [facility] (Rec: 07/03/17 15:31 [facility] [id number]) OP Gait Assessment Assistive Devices Assistive Device Small Based Quad Cane Orthotic/Prosthetic Devices or Brace: No Gait Deviations General Gait Pattern Antalgic Flexed Trunk Comments Gait Comments Pt has dec push off with RLE & dec knee flex & ext during gait. Inc lat rotation of pelvis. PT-OP-J Posture/Palpation/Skin Start: 07/03/17 07:27 Freq: Status: Active Protocol: Document 07/03/17 12:16 [facility] (Rec: 07/03/17 15:31 [facility] [id number]) Skin Assessment Edema Assessment R knee Subjective Edema Description Pain Comments Pt has moderate swelling with incision looking clean & is healing well. She has 3 steri strips left. PT-OP-K Range of Motion Start: 07/03/17 07:27 Freq: Status: Active Protocol: Document 07/03/17 12:16 [facility] (Rec: 07/03/17 13:00 [facility] [id number]) Knee Goniometric Range of Motion Knee Measured in Degrees Right Flexion Active (degrees) 96 Extension Active (degrees) 8 PT-OP-M Strength Start: 07/03/17 07:27 Freq: Status: Active Protocol: Document 07/03/17 12:16 [facility] (Rec: 07/03/17 13:00 [facility] [id number]) Hip Strength Hip Manual Muscle Testing Right Flexion (L2) 4- Good- External Rotation 3+ Fair+ Internal Rotation 3+ Fair+ Left Flexion (L2) 5 Normal External Rotation 4+ Good+ Internal Rotation 4+ Good+ Knee Strength Knee Manual Muscle Testing Right Flexion (S2) 3+ Fair+ Extension (L3) 3+ Fair+ Left Flexion (S2) 5 Normal Extension (L3) 5 Normal Ankle/Foot Strength Ankle and Foot Manual Muscle Testing Right Dorsiflexion (L4) 4 Good Plantarflexion (S1) 4 Good Left Reason Not Measured WFL PT-OP-Q Treatments Start: 07/03/17 07:27 Freq: Status: Active Protocol: Document 07/30/17 13:42 EA (Rec: 07/30/17 13:47 EA [id number]) Cardio Equipment Recumbent Bicycle Duration (Minutes) 6 Resistance 4 Seat Position 6 Therapeutic Exercises Supine Exercises 7 Supine Exercise Name Quad set Side right Reps/Minutes 10 4 Supine Exercise Name SLR Side right Reps/Minutes 12 2 Supine Exercise Name FAQ Side right Resistance 4# Reps/Minutes 30 Sitting Exercises 1 Sitting Exercise Name Seated knee flex/ extension Side right Resistance GTB and 4 lbs AW Reps/Minutes x 12 reps x 2 sets Standing Exercises 4 Standing Exercise Name knee extension Side right Resistance level 2 3 Standing Exercise Name Railing side step squat with heel raises Reps/Minutes x 2 lines 1 Standing Exercise Name heel raises Side bilateral Reps/Minutes 20 Comments single leg Other Exercises 1 Other Exercise Name SLS Side right Comments arm challenge. PT-OP-R Modalities Start: 07/03/17 07:27 Freq: Status: Active Protocol: Document 07/28/17 13:24 EA (Rec: 07/28/17 13:24 EA [id number]) Hot Pack/Cold Pack Treatment Cold Pack Location right knee Patient Position Hooklying Patient Tolerance Fair PT-OP-T Assessment and Plan Start: 07/03/17 07:27 Freq: Status: Active Protocol: Document 07/30/17 13:42 EA (Rec: 07/30/17 13:47 EA [id number]) Physical Therapy Assessment Assessment Summary Assessment Tolerated treatment well; no signs of acute inflammation noted. Physical Therapy Plan Next Visit Focus/Plan Next Visit Plan Cont. with current program, advance as tolerated. Please Sign and Return: I have reviewed this Plan of Care and certify that the skilled therapy services above are required to meet the patient?s needs. Physician Signature Date Printed Name and Credentials Clinical Instructor Signature Printed Name and Credentials
--- NOTE | 2017-08-04 17:44 | PT.OTN ---
Current Diagnoses Unilateral primary osteoarthritis, right knee (08/04/17) Presence of right artificial knee joint (08/04/17) Physical Therapy Treatment Note PT-OP-A Visit Information Start: 07/03/17 07:27 Freq: Status: Active Protocol: Document 08/04/17 11:15 [facility] (Rec: 08/04/17 17:41 [facility] [email or web address]) Out-Patient Physical Therapy Visit Information Visit Information Visit Type Treatment Note Visit Start Time 11:15 Visit Stop Time 12:10 Total Visit Minutes 50 Visit Number / Number of FRUIT AND VEGETABLE FACTORY WORKER Visits 1 Evaluation Information Evaluation Date 07/03/17 PT-OP-B Current Condition Start: 07/03/17 07:27 Freq: Status: Active Protocol: Document 07/03/17 12:16 [facility] (Rec: 07/03/17 15:31 [facility] [id number]) Current Condition History of Current Condition Onset Date 06/17/17 Current Complaints recent R TKA History of Current Condition Pt had chronic knee pain and got TKA at [facility] in 06/17/17. She went home 06/20/17 and has HH PT up until yesterday. Pt saw MD on Thursday and is doing well. Pt has been walking daily for exercise. Prior Treatments and Tests PT Treatment Goals Patient/Caregiver Goals return to hiking & kayaking Prior Functional Status Baseline Function- ADL's Independent Baseline Function- Mobility Independent Baseline Function- Gait no AD & able to hike & walk Current Functional Impairments (Reported) Functional Limitations- Mobility/Gait Unable to hike or go for long walks PT-OP-C Subjective Start: 07/03/17 07:27 Freq: Status: Active Protocol: Document 08/04/17 11:15 [facility] (Rec: 08/04/17 17:41 [facility] [email or web address]) OP-PT Subjective Patient Comments Patient Comments Pt states she been less sore. She been doing her HEP and walking flat areas. PT-OP-J Posture/Palpation/Skin Start: 07/03/17 07:27 Freq: Status: Active Protocol: Document 07/03/17 12:16 [facility] (Rec: 07/03/17 15:31 [facility] [email or web address]) Skin Assessment Edema Assessment R knee Subjective Edema Description Pain Comments Pt has moderate swelling with incision looking clean & is healing well. She has 3 steri strips left. PT-OP-K Range of Motion Start: 07/03/17 07:27 Freq: Status: Active Protocol: Document 08/04/17 11:15 [facility] (Rec: 08/04/17 17:42 [facility] [email or web address]) Knee Goniometric Range of Motion Knee Measured in Degrees Right Flexion Active (degrees) 112 Flexion Passive (degrees) 119 Extension Active (degrees) 0 PT-OP-Q Treatments Start: 07/03/17 07:27 Freq: Status: Active Protocol: Document 08/04/17 11:15 [facility] (Rec: 08/04/17 17:41 [facility] [email or web address]) Cardio Equipment Recumbent Bicycle Duration (Minutes) 6 Resistance 4 Seat Position 6 Gym Equipment Shuttle Recovery Unilateral Squats Details right Resistance 37 Shuttle Recovery Platform Stable Reps/Time 20 Bilateral Squats Resistance 67 Shuttle Recovery Platform Stable Reps/Time 20 Therapeutic Exercises Supine Exercises 4 Supine Exercise Name SLR Side right Reps/Minutes 12 Standing Exercises 4 Standing Exercise Name knee extension Side right Resistance level 2 3 Standing Exercise Name Railing side step squat with heel raises Equipment Used Yellow Reps/Minutes x 2 lines 1 Standing Exercise Name heel raises Side bilateral Reps/Minutes 20 Comments single leg Other Exercises 1 Other Exercise Name SLS Side right PT-OP-R Modalities Start: 07/03/17 07:27 Freq: Status: Active Protocol: Document 08/04/17 11:15 [facility] (Rec: 08/04/17 17:43 [facility] [email or web address]) Hot Pack/Cold Pack Treatment Cold Pack Location right knee Patient Position Hooklying Patient Tolerance Fair PT-OP-T Assessment and Plan Start: 07/03/17 07:27 Freq: Status: Active Protocol: Document 08/04/17 11:15 [facility] (Rec: 08/04/17 17:41 [facility] [email or web address]) Physical Therapy Assessment Assessment Summary Assessment Pt improving with ROM. She had better tolerance to strengthening exercise. Physical Therapy Plan Frequency and Duration Frequency of Treatment 2x/Week Duration of Treatment 2 months Plan of Care Start Date 07/03/17 Plan of Care End Date 09/02/17 Next Visit Focus/Plan Next Note Type Progress Note Next Visit Plan Progress strenghtening and ROM .
--- NOTE | 2017-08-14 13:49 | PT.OTN ---
Current Diagnoses Unilateral primary osteoarthritis, right knee (08/14/17) Presence of right artificial knee joint (08/14/17) Physical Therapy Treatment Note PT-OP-A Visit Information Start: 07/03/17 07:27 Freq: Status: Active Protocol: Document 08/14/17 12:16 [facility] (Rec: 08/14/17 13:49 [facility] [id number]) Out-Patient Physical Therapy Visit Information Visit Information Visit Type Treatment Note Visit Note 10 Visit Start Time 12:15 Visit Stop Time 13:05 Total Visit Minutes 50 Visit Number 03/04 Number of HEARING AIDE TECHNICIAN Visits 1 PT-OP-B Current Condition Start: 07/03/17 07:27 Freq: Status: Active Protocol: Document 07/03/17 12:16 [facility] (Rec: 07/03/17 15:31 [facility] [email or web address]) Current Condition History of Current Condition Onset Date 06/17/17 Current Complaints recent R TKA History of Current Condition Pt had chronic knee pain and got TKA at [facility] in 06/17/17. She went home 06/20/17 and has HH PT up until yesterday. Pt saw on Thursday and is doing well. Pt has been walking daily for exercise. Prior Treatments and Tests PT Treatment Goals Patient/Caregiver Goals return to hiking & kayaking Prior Functional Status Baseline Function- ADL's Independent Baseline Function- Mobility Independent Baseline Function- Gait no AD & able to hike & walk Current Functional Impairments (Reported) Functional Limitations- Mobility/Gait Unable to hike or go for long walks PT-OP-C Subjective Start: 07/03/17 07:27 Freq: Status: Active Protocol: Document 08/14/17 12:16 [facility] (Rec: 08/14/17 13:49 [facility] [id number]) OP-PT Subjective Patient Comments Patient Comments Reports she moves a lot at the night trying to get comfortable. Concerned about core. Patient Questionnaires Lower Extremity Functional Scale LEFS Score 46 LEFS Impairment 40 to 59% Impaired (Score 32- 47) PT-OP-G Mobility & Gait Start: 07/03/17 07:27 Freq: Status: Active Protocol: Document 07/03/17 12:16 [facility] (Rec: 07/03/17 15:31 [facility] [id number]) OP Gait Assessment Assistive Devices Assistive Device Small Based Quad Cane Orthotic/Prosthetic Devices or Brace: No Gait Deviations General Gait Pattern Antalgic Flexed Trunk Comments Gait Comments Pt has dec push off with RLE & dec knee flex & ext during gait. Inc lat rotation of pelvis. PT-OP-J Posture/Palpation/Skin Start: 07/03/17 07:27 Freq: Status: Active Protocol: Document 07/03/17 12:16 [facility] (Rec: 07/03/17 15:31 [facility] [email or web address]) Skin Assessment Edema Assessment R knee Subjective Edema Description Pain Comments Pt has moderate swelling with incision looking clean & is healing well. She has 3 steri strips left. PT-OP-K Range of Motion Start: 07/03/17 07:27 Freq: Status: Active Protocol: Document 08/14/17 12:16 [facility] (Rec: 08/14/17 13:49 [facility] [id number]) Knee Goniometric Range of Motion Knee Measured in Degrees Right Flexion Active (degrees) 111 Extension Active (degrees) 0 PT-OP-M Strength Start: 07/03/17 07:27 Freq: Status: Active Protocol: Document 07/03/17 12:16 [facility] (Rec: 07/03/17 13:00 [facility] [id number]) Hip Strength Hip Manual Muscle Testing Right Flexion (L2) 4- Good- External Rotation 3+ Fair+ Internal Rotation 3+ Fair+ Left Flexion (L2) 5 Normal External Rotation 4+ Good+ Internal Rotation 4+ Good+ Knee Strength Knee Manual Muscle Testing Right Flexion (S2) 3+ Fair+ Extension (L3) 3+ Fair+ Left Flexion (S2) 5 Normal Extension (L3) 5 Normal Ankle/Foot Strength Ankle and Foot Manual Muscle Testing Right Dorsiflexion (L4) 4 Good Plantarflexion (S1) 4 Good Left Reason Not Measured WFL PT-OP-Q Treatments Start: 07/03/17 07:27 Freq: Status: Active Protocol: Document 08/14/17 12:16 [facility] (Rec: 08/14/17 13:49 [facility] [id number]) Cardio Equipment Recumbent Bicycle Duration (Minutes) 7 Resistance 4 Seat Position 4 Gym Equipment Shuttle Recovery Unilateral Squats Details right Resistance 37 Shuttle Recovery Platform Stable Reps/Time 20 Bilateral Squats Resistance 75 Shuttle Recovery Platform Stable Reps/Time 30 Shuttle Balance 1 Details red clips Comments NOBS & WBOS fwd & side Therapeutic Exercises Supine Exercises 6 Supine Exercise Name single leg/arm isometric press Comments tried double but painful in back Manual Therapy Treatment Soft Tissue Mobilization 2 Body Location scar mobilization Comments plunger, STM multi direction Joint Mobilizations 1 Joint tibio femoral Direction PA FM Manual Techniques 1 Type stretch to flex Neuro Re-Education Treatment Balance Activities 1 Details hurdles with balance pods Reps/Duration 6 laps PT-OP-R Modalities Start: 07/03/17 07:27 Freq: Status: Active Protocol: Document 08/14/17 12:16 [facility] (Rec: 08/14/17 13:49 [facility] [id number]) Hot Pack/Cold Pack Treatment Cold Pack Location right knee Patient Position Hooklying Patient Tolerance Fair PT-OP-T Assessment and Plan Start: 07/03/17 07:27 Freq: Status: Active Protocol: Document 08/14/17 12:16 [facility] (Rec: 08/14/17 13:49 [facility] [id number]) Physical Therapy Assessment Assessment Summary Assessment Pt improved to 120 deg after manual. Pt has some adhesion in inf scar. Pt had difficulty with balance exercises. Physical Therapy Plan Frequency and Duration Frequency of Treatment 2x/Week Duration of Treatment 2 months Plan of Care Start Date 07/03/17 Plan of Care End Date 09/02/17 Next Visit Focus/Plan Next Note Type Treatment Note Next Visit Plan Progress strenghtening and ROM .
--- NOTE | 2017-08-17 16:22 | PT.OTN ---
Current Diagnoses Unilateral primary osteoarthritis, right knee (08/17/17) Presence of right artificial knee joint (08/17/17) Physical Therapy Treatment Note PT-OP-A Visit Information Start: 07/03/17 07:27 Freq: Status: Active Protocol: Document 08/17/17 10:36 [facility] (Rec: 08/17/17 16:21 [facility] [id number]) Out-Patient Physical Therapy Visit Information Visit Information Visit Type Treatment Note Visit Note 11 Visit Start Time 10:30 Visit Stop Time 11:25 Total Visit Minutes 50 Visit Number 04/04 Number of ROLL CONTOUR GRINDER Visits 0 PT-OP-B Current Condition Start: 07/03/17 07:27 Freq: Status: Active Protocol: Document 07/03/17 12:16 [facility] (Rec: 07/03/17 15:31 [facility] [email or web address]) Current Condition History of Current Condition Onset Date 06/17/17 Current Complaints recent R TKA History of Current Condition Pt had chronic knee pain and got TKA at [facility] in 06/17/17. She went home 06/20/17 and has HH PT up until yesterday. Pt saw on Thursday and is doing well. Pt has been walking daily for exercise. Prior Treatments and Tests PT Treatment Goals Patient/Caregiver Goals return to hiking & kayaking Prior Functional Status Baseline Function- ADL's Independent Baseline Function- Mobility Independent Baseline Function- Gait no AD & able to hike & walk Current Functional Impairments (Reported) Functional Limitations- Mobility/Gait Unable to hike or go for long walks PT-OP-C Subjective Start: 07/03/17 07:27 Freq: Status: Active Protocol: Document 08/17/17 10:36 [facility] (Rec: 08/17/17 16:21 [facility] [id number]) OP-PT Subjective Patient Comments Patient Comments Reports her quads were sore after last session on Sat making it difficult to walk but it subsided. Did walk 2 miles at [facility]. PT-OP-G Mobility & Gait Start: 07/03/17 07:27 Freq: Status: Active Protocol: Document 07/03/17 12:16 [facility] (Rec: 07/03/17 15:31 [facility] [email or web address]) OP Gait Assessment Assistive Devices Assistive Device Small Based Quad Cane Orthotic/Prosthetic Devices or Brace: No Gait Deviations General Gait Pattern Antalgic Flexed Trunk Comments Gait Comments Pt has dec push off with RLE & dec knee flex & ext during gait. Inc lat rotation of pelvis. PT-OP-J Posture/Palpation/Skin Start: 07/03/17 07:27 Freq: Status: Active Protocol: Document 07/03/17 12:16 [facility] (Rec: 07/03/17 15:31 [facility] [id number]) Skin Assessment Edema Assessment R knee Subjective Edema Description Pain Comments Pt has moderate swelling with incision looking clean & is healing well. She has 3 steri strips left. PT-OP-K Range of Motion Start: 07/03/17 07:27 Freq: Status: Active Protocol: Document 08/17/17 10:36 [facility] (Rec: 08/17/17 16:21 [facility] [id number]) Knee Goniometric Range of Motion Knee Measured in Degrees Right Flexion Active (degrees) 120 Extension Active (degrees) 0 PT-OP-M Strength Start: 07/03/17 07:27 Freq: Status: Active Protocol: Document 07/03/17 12:16 [facility] (Rec: 07/03/17 13:00 [facility] [id number]) Hip Strength Hip Manual Muscle Testing Right Flexion (L2) 4- Good- External Rotation 3+ Fair+ Internal Rotation 3+ Fair+ Left Flexion (L2) 5 Normal External Rotation 4+ Good+ Internal Rotation 4+ Good+ Knee Strength Knee Manual Muscle Testing Right Flexion (S2) 3+ Fair+ Extension (L3) 3+ Fair+ Left Flexion (S2) 5 Normal Extension (L3) 5 Normal Ankle/Foot Strength Ankle and Foot Manual Muscle Testing Right Dorsiflexion (L4) 4 Good Plantarflexion (S1) 4 Good Left Reason Not Measured WFL PT-OP-Q Treatments Start: 07/03/17 07:27 Freq: Status: Active Protocol: Document 08/17/17 10:36 [facility] (Rec: 08/17/17 16:21 [facility] [id number]) Cardio Equipment Bicycle (Upright) Duration (Minutes) 5 Resistance 4 Seat Position 2 Gym Equipment Shuttle Balance 1 Details red clips Comments NOBS & WBOS fwd & side Therapeutic Exercises Standing Exercises 5 Standing Exercise Name single leg mini squats in mirror with counter Gait Training Gait Activity 1 Description up and down 4 in steps reciprocally Comments no rail up and rail down; unable to do 6 in step without signifcant pelvic drop & use of rail; cueing for neutral pelvis Manual Therapy Treatment Soft Tissue Mobilization 2 Body Location scar mobilization Comments in flex STM multi direction Taping 1 Body Location knee Comments 3 Y for improved patellar tracking Neuro Re-Education Treatment Balance Activities 2 Details SLS PT-OP-R Modalities Start: 07/03/17 07:27 Freq: Status: Active Protocol: Document 08/17/17 10:36 [facility] (Rec: 08/17/17 16:22 [facility] [id number]) Hot Pack/Cold Pack Treatment Cold Pack Location right knee Patient Position Hooklying Patient Tolerance Good PT-OP-T Assessment and Plan Start: 07/03/17 07:27 Freq: Status: Active Protocol: Document 08/17/17 10:36 [facility] (Rec: 08/17/17 16:21 [facility] [id number]) Physical Therapy Assessment Assessment Summary Assessment Pt had improved retention of range since last session. As demonstrated by stairs, pt has poor mechanics and dec hip & quad strength. Physical Therapy Plan Frequency and Duration Frequency of Treatment 2x/Week Duration of Treatment 2 months Plan of Care Start Date 07/03/17 Plan of Care End Date 09/02/17 Next Visit Focus/Plan Next Note Type Treatment Note Next Visit Plan Progress strenghtening and ROM for stairs
--- NOTE | 2017-09-30 08:44 | PT.OPDS ---
Current Diagnoses Unilateral primary osteoarthritis, right knee (08/17/17) Presence of right artificial knee joint (08/17/17) Provider Visit Care Team Role Provider Type Johan Theodore MD Attending Provider Non-Staff Family Provider Primary Care Provider Specialty: Medical Address: [address] [place] [address], [phone] Phone: Fax: Email: Visit Number Visit Number 04/04 Discharge Summary PT-OP-B Current Condition Start: 07/03/17 07:27 Freq: Status: Active Protocol: Document 07/03/17 12:16 [facility] (Rec: 07/03/17 15:31 [facility] [id number]) Current Condition History of Current Condition Onset Date 06/17/17 Current Complaints recent R TKA History of Current Condition Pt had chronic knee pain and got TKA at [facility] in 06/17/17. She went home 06/20/17 and has HH PT up until yesterday. Pt saw on Thursday and is doing well. Pt has been walking daily for exercise. Prior Treatments and Tests PT Treatment Goals Patient/Caregiver Goals return to hiking & kayaking Prior Functional Status Baseline Function- ADL's Independent Baseline Function- Mobility Independent Baseline Function- Gait no AD & able to hike & walk Current Functional Impairments (Reported) Functional Limitations- Mobility/Gait Unable to hike or go for long walks PT-OP-C Subjective Start: 07/03/17 07:27 Freq: Status: Active Protocol: Document 08/17/17 10:36 [facility] (Rec: 08/17/17 16:21 [facility] [id number]) OP-PT Subjective Patient Comments Patient Comments Reports her quads were sore after last session on Sat making it difficult to walk but it subsided. Did walk 2 miles at [facility]. PT-OP-G Mobility & Gait Start: 07/03/17 07:27 Freq: Status: Active Protocol: Document 07/03/17 12:16 [facility] (Rec: 07/03/17 15:31 [facility] [id number]) OP Gait Assessment Assistive Devices Assistive Device Small Based Quad Cane Orthotic/Prosthetic Devices or Brace: No Gait Deviations General Gait Pattern Antalgic Flexed Trunk Comments Gait Comments Pt has dec push off with RLE & dec knee flex & ext during gait. Inc lat rotation of pelvis. PT-OP-J Posture/Palpation/Skin Start: 07/03/17 07:27 Freq: Status: Active Protocol: Document 07/03/17 12:16 [facility] (Rec: 07/03/17 15:31 [facility] [id number]) Skin Assessment Edema Assessment R knee Subjective Edema Description Pain Comments Pt has moderate swelling with incision looking clean & is healing well. She has 3 steri strips left. PT-OP-K Range of Motion Start: 07/03/17 07:27 Freq: Status: Active Protocol: Document 08/17/17 10:36 [facility] (Rec: 08/17/17 16:21 [facility] [id number]) Knee Goniometric Range of Motion Knee Measured in Degrees Right Flexion Active (degrees) 120 Extension Active (degrees) 0 PT-OP-M Strength Start: 07/03/17 07:27 Freq: Status: Active Protocol: Document 07/03/17 12:16 [facility] (Rec: 07/03/17 13:00 [facility] [id number]) Hip Strength Hip Manual Muscle Testing Right Flexion (L2) 4- Good- External Rotation 3+ Fair+ Internal Rotation 3+ Fair+ Left Flexion (L2) 5 Normal External Rotation 4+ Good+ Internal Rotation 4+ Good+ Knee Strength Knee Manual Muscle Testing Right Flexion (S2) 3+ Fair+ Extension (L3) 3+ Fair+ Left Flexion (S2) 5 Normal Extension (L3) 5 Normal Ankle/Foot Strength Ankle and Foot Manual Muscle Testing Right Dorsiflexion (L4) 4 Good Plantarflexion (S1) 4 Good Left Reason Not Measured WFL PT-OP-T Assessment and Plan Start: 07/03/17 07:27 Freq: Status: Active Protocol: Document 09/30/17 08:41 [facility] (Rec: 09/30/17 08:42 [facility] [id number]) Physical Therapy Plan Discharge Physical Therapy Discharge Reasons No Longer Attending PT Discharge Comments Pt cancelled last appointment and was called multiple times to schedule, but did not return calls. Pt is d/c from PT at this time.
== END 2017-12-04 10:39 ==
LOC: PHYS 10:30
PROVIDERS: Family Provider Orthopaedic Surgery; PCP Orthopaedic Surgery; Visit Provider Orthopaedic Surgery
DX: M17.11 Unilateral primary osteoarthritis, right knee (principal); Z96.651 Presence of right artificial knee joint
CPT/HCPCS: 97010; 97014; 97110; 97112; 97140; 97162; G0283

== ENCOUNTER 2018-02-05 10:30 | Outpatient (RCR) | payer MEDICARE, OTHER, SELFPAY ==
--- NOTE | 2017-12-30 11:18 | PT.OIE ---
Current Diagnoses Pain in left knee (12/30/17) Low back pain (12/30/17) Difficulty in walking, not elsewhere classified (12/30/17) Abnormal posture (12/30/17) Weakness (12/30/17) Past Medical History (Last Updated 12/30/17 @ 10:59 by Mariola Xavier, PT) Arthritis (Chronic) Back pain (Chronic) ADD (attention deficit disorder) (Acute) DJD (degenerative joint disease) (Acute) Depression (Acute) Spondylarthritis (Acute) Past Surgical History (Last Updated 12/30/17 @ 10:58 by Mariola Xavier, PT) S/P total knee arthroplasty (Acute) Hx of total knee arthroplasty (Chronic) History of carpal tunnel release (Acute) History of section (Acute) Hx of laminectomy (Acute) Provider Visit Care Team Role Provider Type Trini Koch MD Family Provider Non-Staff Specialty: Rheumatology Address: [address] [place] [address], [id number] Email: Harriett Monge MD Attending Provider Non-Staff Primary Care Provider Specialty: Rheumatology Address: [address] [place] [address], [id number] Email: Physical Therapy Initial Evaluation PT-OP-A Visit Information Start: 12/30/17 08:48 Freq: Status: Active Protocol: Document 12/30/17 10:14 [facility] (Rec: 12/30/17 11:17 [facility] [id number]) Out-Patient Physical Therapy Visit Information Visit Information Visit Type Treatment Note Visit Start Time 09:50 Visit Stop Time 10:35 Total Visit Minutes 45 Visit Number 1/ Number of [employer] OPERATOR Visits 0 PT-OP-B Current Condition Start: 12/30/17 08:48 Freq: Status: Active Protocol: Document 12/30/17 10:14 [facility] (Rec: 12/30/17 11:17 [facility] [id number]) Current Condition History of Current Condition History of Current Condition Pt presents with c/o LBP with inc L knee pain. LBP is worse since last bout o fPT. She is now unable to squat d/t back pain and is able to only walk 2 miles with flat surfaces d/t knee pain with inclines or declines. She is not sleeping well d/t pain and rolls around throughout night and no direction is better than another. Pt is going to get a cortizone shot in [place]. 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 Pt also has history of 4 hand sx with cont pain which may limit ability to get up/down from ground. Prior Treatments and Tests PT after TKAs Treatment Goals Patient/Caregiver Goals inc back and thigh strength, be able to squat and lift 30 lbs, be able to walk up/down hills, be able to do stairs reciprocally without rail, be able to get down/up into/out of bath tub to take a bath, up /down to/from ground to play with grandkids. PT-OP-C Subjective Start: 12/30/17 08:48 Freq: Status: Active Protocol: Document 12/30/17 10:14 [facility] (Rec: 12/30/17 11:17 [facility] [id number]) Patient Questionnaires Lower Extremity Functional Scale LEFS Score 29 LEFS Impairment 60 to 79% Impaired (Score 17- 31) OP-PT Pain Assessment Location L knee Intensity 6 Scale Used Numeric (1 - 10) Frequency Constant Other Pain Aggravating Factors hills, stairs, up/down from ground low back Intensity 6 Scale Used Numeric (1 - 10) Frequency Constant Other Pain Aggravating Factors sitting extended, rolling, any general movement, at night in bed PT-OP-G Mobility & Gait Start: 12/30/17 08:48 Freq: Status: Active Protocol: Document 12/30/17 10:14 [facility] (Rec: 12/30/17 10:47 [facility] [id number]) OP Gait Assessment Comments Gait Comments Overall assessment: rotational walker with excessive lat movement & transverse plane movement. PT-OP-J Posture/Palpation/Skin Start: 12/30/17 08:48 Freq: Status: Active Protocol: Document 12/30/17 10:14 [facility] (Rec: 12/30/17 10:47 [facility] [id number]) Posture Evaluation [facility] Postural Classification System [place] Postural Classifications Vertical/Posterior Vertebral Compression Test 0 Elbow Flexion Test 1 Lumbar Protective Mechanism Left AP 0 Lumbar Protective Mechanism Right AP 0 Lumbar Protective Mechanism Left PA 0 Lumbar Protective Mechanism Right PA 0 Leg Swing Left Limited Leg Swing Right Hard End Feel Limited Comments Posture Comments limited innominate ext R & innominate flex L PT-OP-K Range of Motion Start: 12/30/17 08:48 Freq: Status: Active Protocol: Document 12/30/17 10:14 [facility] (Rec: 12/30/17 10:47 [facility] [id number]) Lumbar Spine Range of Motion Lumbar Spine Active Testing Position Standing Rotation Left 18 Rotation Right 38 Comments tape measure used; Flex 18.5 in to 22.5 in ; ext from 18.5 in to 16 in; C7 to sacrum used for measurement; SB L: 4 in; R: 4 in ; rotation in degrees- hard end feel with L rotation Knee Goniometric Range of Motion Knee Measured in Degrees Left Patient Position Supine Flexion Active (degrees) 104 Extension Active (degrees) 4 Right Patient Position Supine Flexion Active (degrees) 113 Extension Active (degrees) 0 PT-OP-M Strength Start: 12/30/17 08:48 Freq: Status: Active Protocol: Document 12/30/17 10:14 [facility] (Rec: 12/30/17 10:47 [facility] [id number]) Hip Strength Hip Manual Muscle Testing Right Flexion (L2) 4 Good Extension (S1) 4+ Good+ Abduction 4 Good External Rotation 4+ Good+ Internal Rotation 4 Good Comments pain in LB with ext-limited in range Left Flexion (L2) 4- Good- Extension (S1) 4+ Good+ Abduction 4 Good External Rotation 4+ Good+ Internal Rotation 4 Good Comments pain with ext Knee Strength Knee Manual Muscle Testing Left Flexion (S2) 5 Normal Extension (L3) 5 Normal Right Flexion (S2) 5 Normal Extension (L3) 5 Normal Ankle/Foot Strength Ankle and Foot Manual Muscle Testing Right Dorsiflexion (L4) 5 Normal Plantarflexion (S1) 5 Normal Left Dorsiflexion (L4) 5 Normal Plantarflexion (S1) 5 Normal Comments seated PF testing PT-OP-Q Treatments Start: 12/30/17 08:48 Freq: Status: Active Protocol: Document 12/30/17 10:14 [facility] (Rec: 12/30/17 11:17 [facility] [id number]) Therapeutic Exercises Supine Exercises 6 Supine Exercise Name pelvic tilt 5 Supine Exercise Name attempted single leg flex abdominal series Side right Comments stopped d/t pain PT-OP-T Assessment and Plan Start: 12/30/17 08:48 Freq: Status: Active Protocol: Document 12/30/17 10:14 [facility] (Rec: 12/30/17 11:17 [facility] [id number]) Physical Therapy Assessment Rehab Potential Rehabilitation Potential Good Evaluation Complexity Number of Personal Factors/Comorbidities 3 or More Number of Body Systems Impaired 4 or More Clinical Presentation at Evaluation Evolving Impairments Impairments Activity Tolerance Balance Functional Activities Functional Mobility Gait Pain Posture ROM Soft Tissue Mobility Strength Goals Three Impairment functional ability Short Term Goal (STG) Pt will able to return to squatting as exercise to work on being able to squat down to reach the ground. STG Duration 01/29/18 Metal Finisher Goal (LTG) Pt will be able to be able to get up/down from floor & bath tub. LTG Duration 03/01/18 Two Impairment pain Short Term Goal (STG) Constant daily pain to 4/10 STG Duration 01/29/19 Metal Finisher Goal (LTG) Constant daily pain to 2/10 with all activities LTG Duration 03/01/18 One Impairment LEFS Short Term Goal (STG) Pt will be able to go up and down stairs reciprocally with 1 rail without pain. STG Duration 01/29/18 Fdc Goal (LTG) 60/80 to allow to return to more recreational & daily activities without pain LTG Duration 03/01/18 Assessment Summary Assessment Pt presents with LBP and left knee pain with no core facilitation & poor movement patterns with gait and impaired static postural lineup. She will require PT for edu on core engagement, posture & stability. Physical Therapy Plan Frequency and Duration Frequency of Treatment 2x/Week Duration of Treatment 2 months Plan of Care Start Date 12/30/17 Plan of Care End Date 03/01/18 Therapeutic Interventions Therapeutic Interventions Aquatic Therapy Balance Training Gait Training Home Exercise Program Joint Mobilizations Manual Therapy Neuromuscular Re-education Self-Care/Home Management Soft Tissue Mobilization Taping Therapeutic Activities Therapeutic Exercises Modalities Cold Pack/Ice Massage Electric Stimulation Hot Packs Infrared Therapy Iontophoresis Traction- Mechanical Ultrasound Next Visit Focus/Plan Next Note Type Treatment Note Next Visit Plan attempt core initiation, STM to lumbar region, assess flexibility & give flexibility & core inititiation exercises , postural edu
--- NOTE | 2017-12-30 11:18 | PT.OPPOC ---
Current Diagnoses Pain in left knee (12/30/17) Low back pain (12/30/17) Difficulty in walking, not elsewhere classified (12/30/17) Abnormal posture (12/30/17) Weakness (12/30/17) Provider Visit Care Team Role Provider Type Trini Koch MD Family Provider Non-Staff Specialty: Rheumatology Address: [address] [place] [address], [phone] Email: Harriett Monge MD Attending Provider Non-Staff Primary Care Provider Specialty: Rheumatology Address: [address] [place] [address], [phone] Email: Plan Of Care PT-OP-T Assessment and Plan Start: 12/30/17 08:48 Freq: Status: Active Protocol: Document 12/30/17 10:14 [facility] (Rec: 12/30/17 11:17 [facility] [id number]) Physical Therapy Assessment Rehab Potential Rehabilitation Potential Good Evaluation Complexity Number of Personal Factors/Comorbidities 3 or More Number of Body Systems Impaired 4 or More Clinical Presentation at Evaluation Evolving Impairments Impairments Activity Tolerance Balance Functional Activities Functional Mobility Gait Pain Posture ROM Soft Tissue Mobility Strength Goals Three Impairment functional ability Short Term Goal (STG) Pt will able to return to squatting as exercise to work on being able to squat down to reach the ground. STG Duration 01/29/18 Exhibits Coordinator Goal (LTG) Pt will be able to be able to get up/down from floor & bath tub. LTG Duration 03/01/18 Two Impairment pain Short Term Goal (STG) Constant daily pain to 4/10 STG Duration 01/29/19 Exhibits Coordinator Goal (LTG) Constant daily pain to 2/10 with all activities LTG Duration 03/01/18 One Impairment LEFS Short Term Goal (STG) Pt will be able to go up and down stairs reciprocally with 1 rail without pain. STG Duration 01/29/18 Exhibits Coordinator Goal (LTG) 60/80 to allow to return to more recreational & daily activities without pain LTG Duration 03/01/18 Assessment Summary Assessment Pt presents with LBP and left knee pain with no core facilitation & poor movement patterns with gait and impaired static postural lineup. She will require PT for edu on core engagement, posture & stability. Physical Therapy Plan Frequency and Duration Frequency of Treatment 2x/Week Duration of Treatment 2 months Plan of Care Start Date 12/30/17 Plan of Care End Date 03/01/18 Therapeutic Interventions Therapeutic Interventions Aquatic Therapy Balance Training Gait Training Home Exercise Program Joint Mobilizations Manual Therapy Neuromuscular Re-education Self-Care/Home Management Soft Tissue Mobilization Taping Therapeutic Activities Therapeutic Exercises Modalities Cold Pack/Ice Massage Electric Stimulation Hot Packs Infrared Therapy Iontophoresis Traction- Mechanical Ultrasound Next Visit Focus/Plan Next Note Type Treatment Note Next Visit Plan attempt core initiation, STM to lumbar region, assess flexibility & give flexibility & core inititiation exercises , postural edu Plan of Care Dates Plan of Care Start Date 12/30/17 Plan of Care End Date 03/01/18 Please Sign and Return: I have reviewed this Plan of Care and certify that the skilled therapy services above are required to meet the patient?s needs. Physician Signature Date Printed Name and Credentials Clinical Instructor Signature Printed Name and Credentials
--- NOTE | 2018-01-05 10:20 | PT.OTN ---
Current Diagnoses Low back pain (01/05/18) Physical Therapy Treatment Note PT-OP-A Visit Information Start: 12/30/17 08:48 Freq: Status: Active Protocol: Document 01/05/18 10:10 [facility] (Rec: 01/05/18 10:20 [facility] [email or web address]) Out-Patient Physical Therapy Visit Information Visit Information Visit Type Treatment Note Visit Start Time 09:00 Visit Stop Time 09:45 Total Visit Minutes 45 Visit Number 2/10 Number of CLINICAL MEDICAL TRANSCRIPTIONIST Visits 1 PT-OP-B Current Condition Start: 12/30/17 08:48 Freq: Status: Active Protocol: Document 12/30/17 10:14 [facility] (Rec: 12/30/17 11:17 [facility] [id number]) Current Condition History of Current Condition History of Current Condition Pt presents with c/o LBP with inc L knee pain. LBP is worse since last bout o fPT. She is now unable to squat d/t back pain and is able to only walk 2 miles with flat surfaces d/t knee pain with inclines or declines. She is not sleeping well d/t pain and rolls around throughout night and no direction is better than another. Pt is going to get a cortizone shot in [place]. 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 Pt also has history of 4 hand sx with cont pain which may limit ability to get up/down from ground. Prior Treatments and Tests PT after TKAs Treatment Goals Patient/Caregiver Goals inc back and thigh strength, be able to squat and lift 30 lbs, be able to walk up/down hills, be able to do stairs reciprocally without rail, be able to get down/up into/out of bath tub to take a bath, up /down to/from ground to play with grandkids. PT-OP-C Subjective Start: 12/30/17 08:48 Freq: Status: Active Protocol: Document 01/05/18 10:10 [facility] (Rec: 01/05/18 10:20 [facility] [email or web address]) OP-PT Subjective Patient Comments Patient Comments Still walking 2 miles every other day. Continues centralized LBP. Used TENS unit at home when pain is bad, with good results. PT-OP-G Mobility & Gait Start: 12/30/17 08:48 Freq: Status: Active Protocol: Document 12/30/17 10:14 [facility] (Rec: 12/30/17 10:47 [facility] [id number]) OP Gait Assessment Comments Gait Comments Overall assessment: rotational walker with excessive lat movement & transverse plane movement. PT-OP-J Posture/Palpation/Skin Start: 12/30/17 08:48 Freq: Status: Active Protocol: Document 12/30/17 10:14 [facility] (Rec: 12/30/17 10:47 [facility] [id number]) Posture Evaluation [facility] Postural Classification System [facility] Postural Classifications Vertical/Posterior Vertebral Compression Test 0 Elbow Flexion Test 1 Lumbar Protective Mechanism Left AP 0 Lumbar Protective Mechanism Right AP 0 Lumbar Protective Mechanism Left PA 0 Lumbar Protective Mechanism Right PA 0 Leg Swing Left Limited Leg Swing Right Hard End Feel Limited Comments Posture Comments limited innominate ext R & innominate flex L PT-OP-K Range of Motion Start: 12/30/17 08:48 Freq: Status: Active Protocol: Document 12/30/17 10:14 [facility] (Rec: 12/30/17 10:47 [facility] [id number]) Lumbar Spine Range of Motion Lumbar Spine Active Testing Position Standing Rotation Left 18 Rotation Right 38 Comments tape measure used; Flex 18.5 in to 22.5 in ; ext from 18.5 in to 16 in; C7 to sacrum used for measurement; SB L: 4 in; R: 4 in ; rotation in degrees- hard end feel with L rotation Knee Goniometric Range of Motion Knee Measured in Degrees Left Patient Position Supine Flexion Active (degrees) 104 Extension Active (degrees) 4 Right Patient Position Supine Flexion Active (degrees) 113 Extension Active (degrees) 0 PT-OP-M Strength Start: 12/30/17 08:48 Freq: Status: Active Protocol: Document 12/30/17 10:14 [facility] (Rec: 12/30/17 10:47 [facility] [id number]) Hip Strength Hip Manual Muscle Testing Right Flexion (L2) 4 Good Extension (S1) 4+ Good+ Abduction 4 Good External Rotation 4+ Good+ Internal Rotation 4 Good Comments pain in LB with ext-limited in range Left Flexion (L2) 4- Good- Extension (S1) 4+ Good+ Abduction 4 Good External Rotation 4+ Good+ Internal Rotation 4 Good Comments pain with ext Knee Strength Knee Manual Muscle Testing Left Flexion (S2) 5 Normal Extension (L3) 5 Normal Right Flexion (S2) 5 Normal Extension (L3) 5 Normal Ankle/Foot Strength Ankle and Foot Manual Muscle Testing Right Dorsiflexion (L4) 5 Normal Plantarflexion (S1) 5 Normal Left Dorsiflexion (L4) 5 Normal Plantarflexion (S1) 5 Normal Comments seated PF testing PT-OP-Q Treatments Start: 12/30/17 08:48 Freq: Status: Active Protocol: Document 01/05/18 10:10 [facility] (Rec: 01/05/18 10:20 [facility] [email or web address]) Therapeutic Exercises Supine Exercises 7 Supine Exercise Name Bridging Reps/Minutes 20x 4 Supine Exercise Name SL Heel slides with abdominal bracing Side bilateral Reps/Minutes 10x each 3 Supine Exercise Name Pelvic Tilts Reps/Minutes 20x 2 Supine Exercise Name Piriformis Stretch Side bilateral Reps/Minutes 30 x 2 1 Supine Exercise Name HS stretch Side bilateral Reps/Minutes 30 x 2 Manual Therapy Treatment Soft Tissue Mobilization 1 Body Location lumbar/thoracic paraspinals Mobilization Type Cross-Friction Myofascial Release Rolling Intensity/Depth Moderate Body Position Prone PT-OP-R Modalities Start: 12/30/17 08:48 Freq: Status: Active Protocol: Document 01/05/18 10:10 [facility] (Rec: 01/05/18 10:20 [facility] [email or web address]) Electric Stimulation Electric Stimulation IFC Body Location low back Duration (Minutes) 15 Target/Sweep Sweep Patient Position Prone Combined With Heat/Cold Hot Pack PT-OP-T Assessment and Plan Start: 12/30/17 08:48 Freq: Status: Active Protocol: Document 01/05/18 10:10 [facility] (Rec: 01/05/18 10:20 [facility] [email or web address]) Physical Therapy Assessment Progress Towards Goals Progress Towards Goals Progressing Toward Goals Assessment Summary Assessment Pt provided with HEP for stretches and core stabilization program, noted R side tightness through lumbar paraspinals. Physical Therapy Plan Next Visit Focus/Plan Next Note Type Treatment Note Next Visit Plan Continue with STM and E-stim as this provided relief for patient. Progress core stab program as tolerated and postural correction.
--- NOTE | 2018-01-19 15:41 | PT.OTN ---
Current Diagnoses Low back pain (01/19/18) Physical Therapy Treatment Note PT-OP-A Visit Information Start: 12/30/17 08:48 Freq: Status: Active Protocol: Document 01/19/18 15:30 SA (Rec: 01/19/18 15:41 [email or web address]) Out-Patient Physical Therapy Visit Information Visit Information Visit Type Treatment Note Visit Start Time 13:00 Visit Stop Time 13:45 Total Visit Minutes 45 Visit Number 3/10 Number of BELT LACER Visits 2 PT-OP-B Current Condition Start: 12/30/17 08:48 Freq: Status: Active Protocol: Document 12/30/17 10:14 [facility] (Rec: 12/30/17 11:17 [facility] [id number]) Current Condition History of Current Condition History of Current Condition Pt presents with c/o LBP with inc L knee pain. LBP is worse since last bout o fPT. She is now unable to squat d/t back pain and is able to only walk 2 miles with flat surfaces d/t knee pain with inclines or declines. She is not sleeping well d/t pain and rolls around throughout night and no direction is better than another. Pt is going to get a cortizone shot in [place]. 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 Pt also has history of 4 hand sx with cont pain which may limit ability to get up/down from ground. Prior Treatments and Tests PT after TKAs Treatment Goals Patient/Caregiver Goals inc back and thigh strength, be able to squat and lift 30 lbs, be able to walk up/down hills, be able to do stairs reciprocally without rail, be able to get down/up into/out of bath tub to take a bath, up /down to/from ground to play with grandkids. PT-OP-C Subjective Start: 12/30/17 08:48 Freq: Status: Active Protocol: Document 01/19/18 15:30 SA (Rec: 01/19/18 15:41 SA [email or web address]) OP-PT Subjective Patient Comments Patient Comments Low back feels worse, pt reporting 6/10 pain from 4/10 previously. Pt feels stretches aggrivating symptoms. PT-OP-G Mobility & Gait Start: 12/30/17 08:48 Freq: Status: Active Protocol: Document 12/30/17 10:14 [facility] (Rec: 12/30/17 10:47 [facility] [id number]) OP Gait Assessment Comments Gait Comments Overall assessment: rotational walker with excessive lat movement & transverse plane movement. PT-OP-J Posture/Palpation/Skin Start: 12/30/17 08:48 Freq: Status: Active Protocol: Document 12/30/17 10:14 [facility] (Rec: 12/30/17 10:47 [facility] [id number]) Posture Evaluation [facility] Postural Classification System [facility] Postural Classifications Vertical/Posterior Vertebral Compression Test 0 Elbow Flexion Test 1 Lumbar Protective Mechanism Left AP 0 Lumbar Protective Mechanism Right AP 0 Lumbar Protective Mechanism Left PA 0 Lumbar Protective Mechanism Right PA 0 Leg Swing Left Limited Leg Swing Right Hard End Feel Limited Comments Posture Comments limited innominate ext R & innominate flex L PT-OP-K Range of Motion Start: 12/30/17 08:48 Freq: Status: Active Protocol: Document 12/30/17 10:14 [facility] (Rec: 12/30/17 10:47 [facility] [id number]) Lumbar Spine Range of Motion Lumbar Spine Active Testing Position Standing Rotation Left 18 Rotation Right 38 Comments tape measure used; Flex 18.5 in to 22.5 in ; ext from 18.5 in to 16 in; C7 to sacrum used for measurement; SB L: 4 in; R: 4 in ; rotation in degrees- hard end feel with L rotation Knee Goniometric Range of Motion Knee Measured in Degrees Left Patient Position Supine Flexion Active (degrees) 104 Extension Active (degrees) 4 Right Patient Position Supine Flexion Active (degrees) 113 Extension Active (degrees) 0 PT-OP-M Strength Start: 12/30/17 08:48 Freq: Status: Active Protocol: Document 12/30/17 10:14 [facility] (Rec: 12/30/17 10:47 [facility] [id number]) Hip Strength Hip Manual Muscle Testing Right Flexion (L2) 4 Good Extension (S1) 4+ Good+ Abduction 4 Good External Rotation 4+ Good+ Internal Rotation 4 Good Comments pain in LB with ext-limited in range Left Flexion (L2) 4- Good- Extension (S1) 4+ Good+ Abduction 4 Good External Rotation 4+ Good+ Internal Rotation 4 Good Comments pain with ext Knee Strength Knee Manual Muscle Testing Left Flexion (S2) 5 Normal Extension (L3) 5 Normal Right Flexion (S2) 5 Normal Extension (L3) 5 Normal Ankle/Foot Strength Ankle and Foot Manual Muscle Testing Right Dorsiflexion (L4) 5 Normal Plantarflexion (S1) 5 Normal Left Dorsiflexion (L4) 5 Normal Plantarflexion (S1) 5 Normal Comments seated PF testing PT-OP-Q Treatments Start: 12/30/17 08:48 Freq: Status: Active Protocol: Document 01/19/18 15:30 [facility] (Rec: 01/19/18 15:41 [email or web address]) Therapeutic Exercises Supine Exercises 4 Supine Exercise Name SL Heel slides with abdominal bracing Side bilateral Reps/Minutes 10x each 3 Supine Exercise Name Pelvic Tilts Reps/Minutes 20x Standing Exercises Wall postural stretch Reps/Minutes 30-60 3-4x daily Comments focus on posterior pelvic tilt and thoracic EXT Manual Therapy Treatment Soft Tissue Mobilization 1 Body Location lumbar/thoracic paraspinals Mobilization Type Cross-Friction Myofascial Release Rolling Intensity/Depth Moderate Body Position Prone PT-OP-R Modalities Start: 12/30/17 08:48 Freq: Status: Active Protocol: Document 01/19/18 15:30 [facility] (Rec: 01/19/18 15:41 [email or web address]) Hot Pack/Cold Pack Treatment Hot Pack Location central low back Patient Position Prone Treatment Duration (minutes) 10 PT-OP-T Assessment and Plan Start: 12/30/17 08:48 Freq: Status: Active Protocol: Document 01/19/18 15:30 [facility] (Rec: 01/19/18 15:41 [email or web address]) Physical Therapy Assessment Assessment Summary Assessment D/Apolinar piriformis and HS stretching, STM and HP to minimize flare up with noted L4/5 L paraspinals very gaurded and painful. Physical Therapy Plan Next Visit Focus/Plan Next Note Type Treatment Note Next Visit Plan Pt to do standing wall postural stretching only for HEP, assess response and symptoms. Progress core stability program as tolerated .
--- NOTE | 2018-01-19 15:41 | PT.OTN ---
Current Diagnoses Low back pain (01/19/18) Physical Therapy Treatment Note PT-OP-A Visit Information Start: 12/30/17 08:48 Freq: Status: Active Protocol: Document 01/19/18 15:30 [facility] (Rec: 01/19/18 15:41 [email or web address]) Out-Patient Physical Therapy Visit Information Visit Information Visit Type Treatment Note Visit Start Time 13:00 Visit Stop Time 13:45 Total Visit Minutes 45 Visit Number 3/10 Number of GRAIN MIXER Visits 2 PT-OP-B Current Condition Start: 12/30/17 08:48 Freq: Status: Active Protocol: Document 12/30/17 10:14 [facility] (Rec: 12/30/17 11:17 [facility] [id number]) Current Condition History of Current Condition History of Current Condition Pt presents with c/o LBP with inc L knee pain. LBP is worse since last bout o fPT. She is now unable to squat d/t back pain and is able to only walk 2 miles with flat surfaces d/t knee pain with inclines or declines. She is not sleeping well d/t pain and rolls around throughout night and no direction is better than another. Pt is going to get a cortizone shot in [place]. 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 Pt also has history of 4 hand sx with cont pain which may limit ability to get up/down from ground. Prior Treatments and Tests PT after TKAs Treatment Goals Patient/Caregiver Goals inc back and thigh strength, be able to squat and lift 30 lbs, be able to walk up/down hills, be able to do stairs reciprocally without rail, be able to get down/up into/out of bath tub to take a bath, up /down to/from ground to play with grandkids. PT-OP-C Subjective Start: 12/30/17 08:48 Freq: Status: Active Protocol: Document 01/19/18 15:30 [facility] (Rec: 01/19/18 15:41 SA [email or web address]) OP-PT Subjective Patient Comments Patient Comments Low back feels worse, pt reporting 6/10 pain from 4/10 previously. Pt feels stretches aggrivating symptoms. PT-OP-G Mobility & Gait Start: 12/30/17 08:48 Freq: Status: Active Protocol: Document 12/30/17 10:14 [facility] (Rec: 12/30/17 10:47 [facility] [id number]) OP Gait Assessment Comments Gait Comments Overall assessment: rotational walker with excessive lat movement & transverse plane movement. PT-OP-J Posture/Palpation/Skin Start: 12/30/17 08:48 Freq: Status: Active Protocol: Document 12/30/17 10:14 [facility] (Rec: 12/30/17 10:47 [facility] [id number]) Posture Evaluation [facility] Postural Classification System [facility] Postural Classifications Vertical/Posterior Vertebral Compression Test 0 Elbow Flexion Test 1 Lumbar Protective Mechanism Left AP 0 Lumbar Protective Mechanism Right AP 0 Lumbar Protective Mechanism Left PA 0 Lumbar Protective Mechanism Right PA 0 Leg Swing Left Limited Leg Swing Right Hard End Feel Limited Comments Posture Comments limited innominate ext R & innominate flex L PT-OP-K Range of Motion Start: 12/30/17 08:48 Freq: Status: Active Protocol: Document 12/30/17 10:14 [facility] (Rec: 12/30/17 10:47 [facility] [id number]) Lumbar Spine Range of Motion Lumbar Spine Active Testing Position Standing Rotation Left 18 Rotation Right 38 Comments tape measure used; Flex 18.5 in to 22.5 in ; ext from 18.5 in to 16 in; C7 to sacrum used for measurement; SB L: 4 in; R: 4 in ; rotation in degrees- hard end feel with L rotation Knee Goniometric Range of Motion Knee Measured in Degrees Left Patient Position Supine Flexion Active (degrees) 104 Extension Active (degrees) 4 Right Patient Position Supine Flexion Active (degrees) 113 Extension Active (degrees) 0 PT-OP-M Strength Start: 12/30/17 08:48 Freq: Status: Active Protocol: Document 12/30/17 10:14 [facility] (Rec: 12/30/17 10:47 [facility] [id number]) Hip Strength Hip Manual Muscle Testing Right Flexion (L2) 4 Good Extension (S1) 4+ Good+ Abduction 4 Good External Rotation 4+ Good+ Internal Rotation 4 Good Comments pain in LB with ext-limited in range Left Flexion (L2) 4- Good- Extension (S1) 4+ Good+ Abduction 4 Good External Rotation 4+ Good+ Internal Rotation 4 Good Comments pain with ext Knee Strength Knee Manual Muscle Testing Left Flexion (S2) 5 Normal Extension (L3) 5 Normal Right Flexion (S2) 5 Normal Extension (L3) 5 Normal Ankle/Foot Strength Ankle and Foot Manual Muscle Testing Right Dorsiflexion (L4) 5 Normal Plantarflexion (S1) 5 Normal Left Dorsiflexion (L4) 5 Normal Plantarflexion (S1) 5 Normal Comments seated PF testing PT-OP-Q Treatments Start: 12/30/17 08:48 Freq: Status: Active Protocol: Document 01/19/18 15:30 [facility] (Rec: 01/19/18 15:41 [email or web address]) Therapeutic Exercises Supine Exercises 4 Supine Exercise Name SL Heel slides with abdominal bracing Side bilateral Reps/Minutes 10x each 3 Supine Exercise Name Pelvic Tilts Reps/Minutes 20x Standing Exercises Wall postural stretch Reps/Minutes 30-60 3-4x daily Comments focus on posterior pelvic tilt and thoracic EXT Manual Therapy Treatment Soft Tissue Mobilization 1 Body Location lumbar/thoracic paraspinals Mobilization Type Cross-Friction Myofascial Release Rolling Intensity/Depth Moderate Body Position Prone PT-OP-R Modalities Start: 12/30/17 08:48 Freq: Status: Active Protocol: Document 01/19/18 15:30 [facility] (Rec: 01/19/18 15:41 [email or web address]) Hot Pack/Cold Pack Treatment Hot Pack Location central low back Patient Position Prone Treatment Duration (minutes) 10 PT-OP-T Assessment and Plan Start: 12/30/17 08:48 Freq: Status: Active Protocol: Document 01/19/18 15:30 [facility] (Rec: 01/19/18 15:41 [email or web address]) Physical Therapy Assessment Assessment Summary Assessment D/Apolinar piriformis and HS stretching, STM and HP to minimize flare up with noted L4/5 L paraspinals very gaurded and painful. Physical Therapy Plan Next Visit Focus/Plan Next Note Type Treatment Note Next Visit Plan Pt to do standing wall postural stretching only for HEP, assess response and symptoms. Progress core stability program as tolerated .
--- NOTE | 2018-01-22 13:05 | PT.OTN ---
Current Diagnoses Low back pain (01/22/18) Physical Therapy Treatment Note PT-OP-A Visit Information Start: 12/30/17 08:48 Freq: Status: Active Protocol: Document 01/22/18 11:18 [facility] (Rec: 01/22/18 12:47 [facility] [id number]) Out-Patient Physical Therapy Visit Information Visit Information Visit Type Treatment Note Visit Start Time 11:18 Visit Stop Time 12:10 Total Visit Minutes 52 Visit Number 4/10 Number of INJECTION WAX MOLDER Visits 0 PT-OP-B Current Condition Start: 12/30/17 08:48 Freq: Status: Active Protocol: Document 12/30/17 10:14 [facility] (Rec: 12/30/17 11:17 [facility] [id number]) Current Condition History of Current Condition History of Current Condition Pt presents with c/o LBP with inc L knee pain. LBP is worse since last bout o fPT. She is now unable to squat d/t back pain and is able to only walk 2 miles with flat surfaces d/t knee pain with inclines or declines. She is not sleeping well d/t pain and rolls around throughout night and no direction is better than another. Pt is going to get a cortizone shot in [place]. 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 Pt also has history of 4 hand sx with cont pain which may limit ability to get up/down from ground. Prior Treatments and Tests PT after TKAs Treatment Goals Patient/Caregiver Goals inc back and thigh strength, be able to squat and lift 30 lbs, be able to walk up/down hills, be able to do stairs reciprocally without rail, be able to get down/up into/out of bath tub to take a bath, up /down to/from ground to play with grandkids. PT-OP-C Subjective Start: 12/30/17 08:48 Freq: Status: Active Protocol: Document 01/22/18 11:18 [facility] (Rec: 01/22/18 12:47 [facility] [id number]) OP-PT Subjective Patient Comments Patient Comments States she likes the wall standing ex because it makes her feel aligned. PT-OP-G Mobility & Gait Start: 12/30/17 08:48 Freq: Status: Active Protocol: Document 12/30/17 10:14 [facility] (Rec: 12/30/17 10:47 [facility] [id number]) OP Gait Assessment Comments Gait Comments Overall assessment: rotational walker with excessive lat movement & transverse plane movement. PT-OP-J Posture/Palpation/Skin Start: 12/30/17 08:48 Freq: Status: Active Protocol: Document 12/30/17 10:14 [facility] (Rec: 12/30/17 10:47 [facility] [id number]) Posture Evaluation [facility] Postural Classification System [facility] Postural Classifications Vertical/Posterior Vertebral Compression Test 0 Elbow Flexion Test 1 Lumbar Protective Mechanism Left AP 0 Lumbar Protective Mechanism Right AP 0 Lumbar Protective Mechanism Left PA 0 Lumbar Protective Mechanism Right PA 0 Leg Swing Left Limited Leg Swing Right Hard End Feel Limited Comments Posture Comments limited innominate ext R & innominate flex L PT-OP-K Range of Motion Start: 12/30/17 08:48 Freq: Status: Active Protocol: Document 12/30/17 10:14 [facility] (Rec: 12/30/17 10:47 [facility] [id number]) Lumbar Spine Range of Motion Lumbar Spine Active Testing Position Standing Rotation Left 18 Rotation Right 38 Comments tape measure used; Flex 18.5 in to 22.5 in ; ext from 18.5 in to 16 in; C7 to sacrum used for measurement; SB L: 4 in; R: 4 in ; rotation in degrees- hard end feel with L rotation Knee Goniometric Range of Motion Knee Measured in Degrees Left Patient Position Supine Flexion Active (degrees) 104 Extension Active (degrees) 4 Right Patient Position Supine Flexion Active (degrees) 113 Extension Active (degrees) 0 PT-OP-M Strength Start: 12/30/17 08:48 Freq: Status: Active Protocol: Document 12/30/17 10:14 [facility] (Rec: 12/30/17 10:47 [facility] [id number]) Hip Strength Hip Manual Muscle Testing Right Flexion (L2) 4 Good Extension (S1) 4+ Good+ Abduction 4 Good External Rotation 4+ Good+ Internal Rotation 4 Good Comments pain in LB with ext-limited in range Left Flexion (L2) 4- Good- Extension (S1) 4+ Good+ Abduction 4 Good External Rotation 4+ Good+ Internal Rotation 4 Good Comments pain with ext Knee Strength Knee Manual Muscle Testing Left Flexion (S2) 5 Normal Extension (L3) 5 Normal Right Flexion (S2) 5 Normal Extension (L3) 5 Normal Ankle/Foot Strength Ankle and Foot Manual Muscle Testing Right Dorsiflexion (L4) 5 Normal Plantarflexion (S1) 5 Normal Left Dorsiflexion (L4) 5 Normal Plantarflexion (S1) 5 Normal Comments seated PF testing PT-OP-Q Treatments Start: 12/30/17 08:48 Freq: Status: Active Protocol: Document 01/22/18 11:18 [facility] (Rec: 01/22/18 12:47 [facility] [id number]) Therapeutic Exercises Supine Exercises Lateral hip stretch Supine Exercise Name Lateral hip stretch Side bilateral Reps/Minutes 60 x 1 each 4 Supine Exercise Name SL Heel slides with abdominal bracing Side bilateral Reps/Minutes 10x each 2 Supine Exercise Name Piriformis Stretch Side bilateral Reps/Minutes 60 x 1 each Sidelying Exercises 1 Sidelying Exercise Name DLS: Clamshell Side bilateral Reps/Minutes 10x Standing Exercises Wall postural stretch Reps/Minutes 30-60 3-4x daily Comments focus on posterior pelvic tilt and thoracic EXT Therapeutic Activity Therapeutic Activity Bed mobility Name Rolling side to side Reps/Minutes 4' Comments Improved mechanics with training. Sit <-> Stand Name Transfer training Reps/Minutes 5' Comments Fair pivoting from hips but good back posturing. Sit <-> Supine Name Transfer training Reps/Minutes 5' Manual Therapy Treatment Soft Tissue Mobilization 1 Body Location lumbar/thoracic paraspinals Mobilization Type Cross-Friction Myofascial Release Rolling Trigger Point Release Intensity/Depth Moderate Body Position Prone Comments Lumbar myofascial tractioning and TrP, Thoracic - Cross Friction/Rolling Neuro Re-Education Treatment Movement Re-Education Movement Re-education Activities DLS Neutral positioning training. Self-Care/Home Management Treatment Education Patient Education Home Exercise Program Other Education I/S and issued handout for Piriformis, Lateral hip & Iliopsoas stretch. PT-OP-R Modalities Start: 12/30/17 08:48 Freq: Status: Active Protocol: Document 01/19/18 15:30 [facility] (Rec: 01/19/18 15:41 SA [email or web address]) Hot Pack/Cold Pack Treatment Hot Pack Location central low back Patient Position Prone Treatment Duration (minutes) 10 PT-OP-T Assessment and Plan Start: 12/30/17 08:48 Freq: Status: Active Protocol: Document 01/22/18 11:18 [facility] (Rec: 01/22/18 12:47 [facility] [id number]) Physical Therapy Assessment Assessment Summary Assessment Manual fascial traction of L/S decreased sudden onset of numbness/tingling after STM. PT may have area of scar tissue in L LB adding to back pain. Pt demonstrated improved body mechanics with training, but probably needs review. Physical Therapy Plan Next Visit Focus/Plan Next Note Type Treatment Note Next Visit Plan Review proper body mechanics, and HEP (hip stretches and Clamshell); issue Clamshell HEP; Progress core stabilization.
--- NOTE | 2018-01-29 11:40 | PT.OTN ---
Current Diagnoses Low back pain (01/29/18) Physical Therapy Treatment Note PT-OP-A Visit Information Start: 12/30/17 08:48 Freq: Status: Active Protocol: Document 01/29/18 11:32 SA (Rec: 01/29/18 11:40 SA [email or web address]) Out-Patient Physical Therapy Visit Information Visit Information Visit Type Treatment Note Visit Start Time 10:30 Visit Stop Time 11:15 Total Visit Minutes 45 Visit Number 5/10 Number of LITIGATION PARTNER Visits 1 PT-OP-B Current Condition Start: 12/30/17 08:48 Freq: Status: Active Protocol: Document 12/30/17 10:14 [facility] (Rec: 12/30/17 11:17 [facility] [id number]) Current Condition History of Current Condition History of Current Condition Pt presents with c/o LBP with inc L knee pain. LBP is worse since last bout o fPT. She is now unable to squat d/t back pain and is able to only walk 2 miles with flat surfaces d/t knee pain with inclines or declines. She is not sleeping well d/t pain and rolls around throughout night and no direction is better than another. Pt is going to get a cortizone shot in [place]. 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 Pt also has history of 4 hand sx with cont pain which may limit ability to get up/down from ground. Prior Treatments and Tests PT after TKAs Treatment Goals Patient/Caregiver Goals inc back and thigh strength, be able to squat and lift 30 lbs, be able to walk up/down hills, be able to do stairs reciprocally without rail, be able to get down/up into/out of bath tub to take a bath, up /down to/from ground to play with grandkids. PT-OP-C Subjective Start: 12/30/17 08:48 Freq: Status: Active Protocol: Document 01/29/18 11:32 SA (Rec: 01/29/18 11:40 SA [email or web address]) OP-PT Subjective Patient Comments Patient Comments Pt reports improvement in LBP, tolerating walking better and continues to do wall stretching at home. Patient Reported Progress Improving PT-OP-G Mobility & Gait Start: 12/30/17 08:48 Freq: Status: Active Protocol: Document 12/30/17 10:14 [facility] (Rec: 12/30/17 10:47 [facility] [id number]) OP Gait Assessment Comments Gait Comments Overall assessment: rotational walker with excessive lat movement & transverse plane movement. PT-OP-J Posture/Palpation/Skin Start: 12/30/17 08:48 Freq: Status: Active Protocol: Document 12/30/17 10:14 [facility] (Rec: 12/30/17 10:47 [facility] [id number]) Posture Evaluation [facility] Postural Classification System [facility] Postural Classifications Vertical/Posterior Vertebral Compression Test 0 Elbow Flexion Test 1 Lumbar Protective Mechanism Left AP 0 Lumbar Protective Mechanism Right AP 0 Lumbar Protective Mechanism Left PA 0 Lumbar Protective Mechanism Right PA 0 Leg Swing Left Limited Leg Swing Right Hard End Feel Limited Comments Posture Comments limited innominate ext R & innominate flex L PT-OP-K Range of Motion Start: 12/30/17 08:48 Freq: Status: Active Protocol: Document 12/30/17 10:14 [facility] (Rec: 12/30/17 10:47 [facility] [id number]) Lumbar Spine Range of Motion Lumbar Spine Active Testing Position Standing Rotation Left 18 Rotation Right 38 Comments tape measure used; Flex 18.5 in to 22.5 in ; ext from 18.5 in to 16 in; C7 to sacrum used for measurement; SB L: 4 in; R: 4 in ; rotation in degrees- hard end feel with L rotation Knee Goniometric Range of Motion Knee Measured in Degrees Left Patient Position Supine Flexion Active (degrees) 104 Extension Active (degrees) 4 Right Patient Position Supine Flexion Active (degrees) 113 Extension Active (degrees) 0 PT-OP-M Strength Start: 12/30/17 08:48 Freq: Status: Active Protocol: Document 12/30/17 10:14 [facility] (Rec: 12/30/17 10:47 [facility] [id number]) Hip Strength Hip Manual Muscle Testing Right Flexion (L2) 4 Good Extension (S1) 4+ Good+ Abduction 4 Good External Rotation 4+ Good+ Internal Rotation 4 Good Comments pain in LB with ext-limited in range Left Flexion (L2) 4- Good- Extension (S1) 4+ Good+ Abduction 4 Good External Rotation 4+ Good+ Internal Rotation 4 Good Comments pain with ext Knee Strength Knee Manual Muscle Testing Left Flexion (S2) 5 Normal Extension (L3) 5 Normal Right Flexion (S2) 5 Normal Extension (L3) 5 Normal Ankle/Foot Strength Ankle and Foot Manual Muscle Testing Right Dorsiflexion (L4) 5 Normal Plantarflexion (S1) 5 Normal Left Dorsiflexion (L4) 5 Normal Plantarflexion (S1) 5 Normal Comments seated PF testing PT-OP-Q Treatments Start: 12/30/17 08:48 Freq: Status: Active Protocol: Document 01/29/18 11:32 SA (Rec: 01/29/18 11:40 SA [email or web address]) Cardio Equipment Recumbent Bicycle Duration (Minutes) 6 Resistance 5 Therapeutic Exercises Supine Exercises Lateral hip stretch Supine Exercise Name Lateral hip stretch Side bilateral Reps/Minutes 60 x 1 each 4 Supine Exercise Name SL Heel slides with abdominal bracing Side bilateral Reps/Minutes 10x each 3 Supine Exercise Name Pelvic Tilts Reps/Minutes 20x Sidelying Exercises 1 Sidelying Exercise Name DLS: Clamshell Side bilateral Reps/Minutes 20 Comments focus on control Sitting Exercises Seated lateral trunk stretch Side bilateral Reps/Minutes 30 x 2 Standing Exercises Wall postural stretch Reps/Minutes 30-60 3-4x daily Comments focus on posterior pelvic tilt and thoracic EXT Manual Therapy Treatment Soft Tissue Mobilization 1 Body Location lumbar/thoracic paraspinals Mobilization Type Cross-Friction Myofascial Release Rolling Trigger Point Release Intensity/Depth Moderate Body Position Prone Comments Lumbar myofascial tractioning and TrP, Thoracic - Cross Friction/Rolling PT-OP-R Modalities Start: 12/30/17 08:48 Freq: Status: Active Protocol: Document 01/19/18 15:30 SA (Rec: 01/19/18 15:41 SA [email or web address]) Hot Pack/Cold Pack Treatment Hot Pack Location central low back Patient Position Prone Treatment Duration (minutes) 10 PT-OP-T Assessment and Plan Start: 12/30/17 08:48 Freq: Status: Active Protocol: Document 01/29/18 11:32 SA (Rec: 01/29/18 11:40 SA [email or web address]) Physical Therapy Assessment Progress Towards Goals Progress Towards Goals Progressing Toward Goals Assessment Summary Assessment Pt did not tolerate reintroduction of piriformis stretching, attempt lateral trunk stretch to assess next visit. Notes relief with manual techniques and states very little numbness/tingling since last visit. Physical Therapy Plan Next Visit Focus/Plan Next Note Type Treatment Note Next Visit Plan Progress HEP and stability program as tolerated, continue manual techniques.
--- NOTE | 2018-02-05 13:47 | PT.OTN ---
Current Diagnoses Low back pain (02/05/18) Physical Therapy Treatment Note PT-OP-A Visit Information Start: 12/30/17 08:48 Freq: Status: Active Protocol: Document 02/05/18 13:42 SA (Rec: 02/05/18 13:47 SA [email or web address]) Out-Patient Physical Therapy Visit Information Visit Information Visit Type Treatment Note Visit Start Time 10:30 Visit Stop Time 11:16 Total Visit Minutes 46 Visit Number 6/ Number of CIVIL RIGHTS ATTORNEY Visits 2 PT-OP-B Current Condition Start: 12/30/17 08:48 Freq: Status: Active Protocol: Document 12/30/17 10:14 [facility] (Rec: 12/30/17 11:17 [facility] [id number]) Current Condition History of Current Condition History of Current Condition Pt presents with c/o LBP with inc L knee pain. LBP is worse since last bout o fPT. She is now unable to squat d/t back pain and is able to only walk 2 miles with flat surfaces d/t knee pain with inclines or declines. She is not sleeping well d/t pain and rolls around throughout night and no direction is better than another. Pt is going to get a cortizone shot in [place]. 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 Pt also has history of 4 hand sx with cont pain which may limit ability to get up/down from ground. Prior Treatments and Tests PT after TKAs Treatment Goals Patient/Caregiver Goals inc back and thigh strength, be able to squat and lift 30 lbs, be able to walk up/down hills, be able to do stairs reciprocally without rail, be able to get down/up into/out of bath tub to take a bath, up /down to/from ground to play with grandkids. PT-OP-C Subjective Start: 12/30/17 08:48 Freq: Status: Active Protocol: Document 02/05/18 13:42 SA (Rec: 02/05/18 13:47 SA [email or web address]) OP-PT Subjective Patient Comments Patient Comments Pt reports feeling better and improvement with walking. Patient Reported Progress Improving PT-OP-G Mobility & Gait Start: 12/30/17 08:48 Freq: Status: Active Protocol: Document 12/30/17 10:14 [facility] (Rec: 12/30/17 10:47 [facility] [id number]) OP Gait Assessment Comments Gait Comments Overall assessment: rotational walker with excessive lat movement & transverse plane movement. PT-OP-J Posture/Palpation/Skin Start: 12/30/17 08:48 Freq: Status: Active Protocol: Document 12/30/17 10:14 [facility] (Rec: 12/30/17 10:47 [facility] [id number]) Posture Evaluation [facility] Postural Classification System [facility] Postural Classifications Vertical/Posterior Vertebral Compression Test 0 Elbow Flexion Test 1 Lumbar Protective Mechanism Left AP 0 Lumbar Protective Mechanism Right AP 0 Lumbar Protective Mechanism Left PA 0 Lumbar Protective Mechanism Right PA 0 Leg Swing Left Limited Leg Swing Right Hard End Feel Limited Comments Posture Comments limited innominate ext R & innominate flex L PT-OP-K Range of Motion Start: 12/30/17 08:48 Freq: Status: Active Protocol: Document 12/30/17 10:14 [facility] (Rec: 12/30/17 10:47 [facility] [id number]) Lumbar Spine Range of Motion Lumbar Spine Active Testing Position Standing Rotation Left 18 Rotation Right 38 Comments tape measure used; Flex 18.5 in to 22.5 in ; ext from 18.5 in to 16 in; C7 to sacrum used for measurement; SB L: 4 in; R: 4 in ; rotation in degrees- hard end feel with L rotation Knee Goniometric Range of Motion Knee Measured in Degrees Left Patient Position Supine Flexion Active (degrees) 104 Extension Active (degrees) 4 Right Patient Position Supine Flexion Active (degrees) 113 Extension Active (degrees) 0 PT-OP-M Strength Start: 12/30/17 08:48 Freq: Status: Active Protocol: Document 12/30/17 10:14 [facility] (Rec: 12/30/17 10:47 [facility] [id number]) Hip Strength Hip Manual Muscle Testing Right Flexion (L2) 4 Good Extension (S1) 4+ Good+ Abduction 4 Good External Rotation 4+ Good+ Internal Rotation 4 Good Comments pain in LB with ext-limited in range Left Flexion (L2) 4- Good- Extension (S1) 4+ Good+ Abduction 4 Good External Rotation 4+ Good+ Internal Rotation 4 Good Comments pain with ext Knee Strength Knee Manual Muscle Testing Left Flexion (S2) 5 Normal Extension (L3) 5 Normal Right Flexion (S2) 5 Normal Extension (L3) 5 Normal Ankle/Foot Strength Ankle and Foot Manual Muscle Testing Right Dorsiflexion (L4) 5 Normal Plantarflexion (S1) 5 Normal Left Dorsiflexion (L4) 5 Normal Plantarflexion (S1) 5 Normal Comments seated PF testing PT-OP-Q Treatments Start: 12/30/17 08:48 Freq: Status: Active Protocol: Document 02/05/18 13:42 SA (Rec: 02/05/18 13:47 SA [email or web address]) Cardio Equipment Recumbent Bicycle Duration (Minutes) 6 Resistance 5 Therapeutic Exercises Supine Exercises 7 Supine Exercise Name Bridging Reps/Minutes 20x 4 Supine Exercise Name SL Heel slides with abdominal bracing Side bilateral Reps/Minutes 10x each 3 Supine Exercise Name Pelvic Tilts Reps/Minutes 20x Sidelying Exercises 1 Sidelying Exercise Name DLS: Clamshell Side bilateral Comments focus on control Manual Therapy Treatment Soft Tissue Mobilization 1 Body Location lumbar/thoracic paraspinals Mobilization Type Cross-Friction Myofascial Release Rolling Trigger Point Release Intensity/Depth Moderate Body Position Prone Comments Lumbar myofascial tractioning and TrP, Thoracic - Cross Friction/Rolling PT-OP-R Modalities Start: 12/30/17 08:48 Freq: Status: Active Protocol: Document 02/05/18 13:42 SA (Rec: 02/05/18 13:47 SA [email or web address]) Electric Stimulation Electric Stimulation IFC Body Location low back Duration (Minutes) 15 Target/Sweep Sweep Patient Position Prone Combined With Heat/Cold Hot Pack PT-OP-T Assessment and Plan Start: 12/30/17 08:48 Freq: Status: Active Protocol: Document 02/05/18 13:42 SA (Rec: 02/05/18 13:47 [email or web address]) Physical Therapy Assessment Progress Towards Goals Progress Towards Goals Progressing Toward Goals Assessment Summary Assessment Pt tolerating HEP well with good relief from STM previous visit. Physical Therapy Plan Next Visit Focus/Plan Next Note Type Treatment Note Next Visit Plan Progress core strengthening and assess response to activities during the holidays.
--- NOTE | 2018-03-30 14:24 | PT.OPDS ---
Current Diagnoses Low back pain (02/05/18) Provider Visit Care Team Role Provider Type Trini Koch MD Family Provider Non-Staff Specialty: Rheumatology Address: [address] [place] [address] Cori Miller, [place], [address] Email: Harriett Monge MD Attending Provider Non-Staff Primary Care Provider Specialty: Rheumatology Address: [address] [place] [address] Cori Miller, [place], [address] Email: Visit Number Visit Number 08/02 Discharge Summary PT-OP-B Current Condition Start: 12/30/17 08:48 Freq: Status: Active Protocol: Document 12/30/17 10:14 [facility] (Rec: 12/30/17 11:17 [facility] [id number]) Current Condition History of Current Condition History of Current Condition Pt presents with c/o LBP with inc L knee pain. LBP is worse since last bout o fPT. She is now unable to squat d/t back pain and is able to only walk 2 miles with flat surfaces d/t knee pain with inclines or declines. She is not sleeping well d/t pain and rolls around throughout night and no direction is better than another. Pt is going to get a cortizone shot in [place]. 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 Pt also has history of 4 hand sx with cont pain which may limit ability to get up/down from ground. Prior Treatments and Tests PT after TKAs Treatment Goals Patient/Caregiver Goals inc back and thigh strength, be able to squat and lift 30 lbs, be able to walk up/down hills, be able to do stairs reciprocally without rail, be able to get down/up into/out of bath tub to take a bath, up /down to/from ground to play with grandkids. PT-OP-C Subjective Start: 12/30/17 08:48 Freq: Status: Active Protocol: Document 02/05/18 13:42 SA (Rec: 02/05/18 13:47 SA [email or web address]) OP-PT Subjective Patient Comments Patient Comments Pt reports feeling better and improvement with walking. Patient Reported Progress Improving PT-OP-G Mobility & Gait Start: 12/30/17 08:48 Freq: Status: Active Protocol: Document 12/30/17 10:14 [facility] (Rec: 12/30/17 10:47 [facility] [id number]) OP Gait Assessment Comments Gait Comments Overall assessment: rotational walker with excessive lat movement & transverse plane movement. PT-OP-J Posture/Palpation/Skin Start: 12/30/17 08:48 Freq: Status: Active Protocol: Document 12/30/17 10:14 [facility] (Rec: 12/30/17 10:47 [facility] [id number]) Posture Evaluation [facility] Postural Classification System [facility] Postural Classifications Vertical/Posterior Vertebral Compression Test 0 Elbow Flexion Test 1 Lumbar Protective Mechanism Left AP 0 Lumbar Protective Mechanism Right AP 0 Lumbar Protective Mechanism Left PA 0 Lumbar Protective Mechanism Right PA 0 Leg Swing Left Limited Leg Swing Right Hard End Feel Limited Comments Posture Comments limited innominate ext R & innominate flex L PT-OP-K Range of Motion Start: 12/30/17 08:48 Freq: Status: Active Protocol: Document 12/30/17 10:14 [facility] (Rec: 12/30/17 10:47 [facility] [id number]) Lumbar Spine Range of Motion Lumbar Spine Active Testing Position Standing Rotation Left 18 Rotation Right 38 Comments tape measure used; Flex 18.5 in to 22.5 in ; ext from 18.5 in to 16 in; C7 to sacrum used for measurement; SB L: 4 in; R: 4 in ; rotation in degrees- hard end feel with L rotation Knee Goniometric Range of Motion Knee Measured in Degrees Left Patient Position Supine Flexion Active (degrees) 104 Extension Active (degrees) 4 Right Patient Position Supine Flexion Active (degrees) 113 Extension Active (degrees) 0 PT-OP-M Strength Start: 12/30/17 08:48 Freq: Status: Active Protocol: Document 12/30/17 10:14 [facility] (Rec: 12/30/17 10:47 [facility] [id number]) Hip Strength Hip Manual Muscle Testing Right Flexion (L2) 4 Good Extension (S1) 4+ Good+ Abduction 4 Good External Rotation 4+ Good+ Internal Rotation 4 Good Comments pain in LB with ext-limited in range Left Flexion (L2) 4- Good- Extension (S1) 4+ Good+ Abduction 4 Good External Rotation 4+ Good+ Internal Rotation 4 Good Comments pain with ext Knee Strength Knee Manual Muscle Testing Left Flexion (S2) 5 Normal Extension (L3) 5 Normal Right Flexion (S2) 5 Normal Extension (L3) 5 Normal Ankle/Foot Strength Ankle and Foot Manual Muscle Testing Right Dorsiflexion (L4) 5 Normal Plantarflexion (S1) 5 Normal Left Dorsiflexion (L4) 5 Normal Plantarflexion (S1) 5 Normal Comments seated PF testing PT-OP-T Assessment and Plan Start: 12/30/17 08:48 Freq: Status: Active Protocol: Document 03/30/18 14:24 [facility] (Rec: 03/30/18 14:24 [facility] [id number]) Physical Therapy Plan Discharge Physical Therapy Discharge Reasons No Longer Attending PT Discharge Comments Pt has reported good dec in pain and did not schedule further visits. She was called multiple times for openings, but did not return calls. Pt is d/c at this time.
== END 2018-03-30 16:28 ==
LOC: PHYS 10:30
PROVIDERS: Family Provider Internal Medicine Rheumatology; PCP Internal Medicine Rheumatology; Visit Provider Internal Medicine Rheumatology
DX: M54.5 Low back pain (principal)
CPT/HCPCS: 97010; 97014; 97110; 97140; 97162; 97530; G0283

== ENCOUNTER → 2018-04-22 15:38 | Outpatient (CLI) | payer MEDICARE, OTHER, SELFPAY ==
[2018-04-22 17:13] LABS: Alanine Aminotransferase 37 IU/L (9-52); Albumin 4.3 g/dL (3.5-5.0); Albumin Globulin Ratio 1.7 (1.0-2.8); Alkaline Phosphatase 89 U/L (38-126); Aspartate Aminotransferase 30 IU/L (14-36); BUN Creatinine Ratio 18.6 (6-22); Bilirubin Total 0.7 mg/dL (0.2-1.3); Blood Urea Nitrogen 13 mg/dL (7-17); Calcium 9.8 mg/dL (8.4-10.2); Carbon Dioxide 24 mmol/L (22-32); Chloride 102 mmol/L (98-107); Estimated Glomerular Filt Rate > 60.0 mL/min (>60); Globulin 2.5 g/dL (1.7-4.1); Glucose 95 mg/dL (80-110); HEMOLYSIS < 15 (0-50); Potassium 5.2 mmol/L (3.4-5.1); Sodium 134 mmol/L (137-145); Total Protein 6.8 g/dL (6.3-8.2)
[2018-04-22 17:16] LABS: C-Reactive Protein Quant < 0.5 mg/dL (<1.0)
[2018-04-22 17:18] LABS: Add Manual Diff / Slide Review NO; Basophils Absolute Auto 100 /uL (0-100); Basophils Percent Auto 0.6 % (0-2); Eosinophils Absolute Auto 200 /uL (0-450); Eosinophils Percent Auto 1.9 % (2-4); Hematocrit 39.6 % (36-46); Hemoglobin 13.4 g/dL (12.0-16.0); Lymphocytes Absolute Auto 2800 /uL (1100-4500); Lymphocytes Percent Auto 33.8 % (25-40); Mean Corpuscular HGB Conc 33.8 % (30-36); Mean Corpuscular Hemoglobin 34.8 PG (26-34); Mean Corpuscular Volume 102.8 fL (80-100); Monocytes Absolute Auto 500 /uL (0-900); Monocytes Percent Auto 5.7 % (3-14); Neutrophils Absolute Auto 4800 /uL (1500-7000); Platelet Count 217 X10^3/uL (150-400); Red Blood Cell Count 3.86 X10^6/uL (4.0-5.2); Red Cell Distribution Width 13.9 % (11.6-14.8); White Blood Cell Count 8.2 X10^3/uL (4.5-11.0)
[2018-04-22 17:25] LABS: Erythrocyte Sedimentation Rate 1 MM/HR (0-20)
[2018-04-22 18:07] LABS: Hepatitis B Surface Antigen NEGATIVE s/c (NEGATIVE)
[2018-04-26 15:01] LABS: Mitogen-NIL > 10.00 IU/mL; NIL 0.03 IU/mL; QuantiFERON TB NEGATIVE (Negative); TB1-NIL < 0.01 IU/mL; TB2-NIL < 0.01 IU/mL
== END ==
PROVIDERS: Family Provider Internal Medicine Rheumatology; Visit Provider Internal Medicine Rheumatology
DX: M06.09 Rheumatoid arthritis without rheumatoid factor, multiple sites (principal); M45.7 Ankylosing spondylitis of lumbosacral region
CPT/HCPCS: 36415; 80053; 85025; 85651; 86140; 86480; 87340

== ENCOUNTER → 2018-07-26 14:03 | Outpatient (CLI) | payer MEDICARE, OTHER, SELFPAY ==
[2018-07-26 15:08] LABS: Add Manual Diff / Slide Review NO; Basophils Absolute Auto 0 /uL (0-100); Basophils Percent Auto 0.5 % (0-2); Eosinophils Absolute Auto 100 /uL (0-450); Eosinophils Percent Auto 1.3 % (2-4); Hematocrit 40.4 % (36-46); Hemoglobin 13.7 g/dL (12.0-16.0); Lymphocytes Absolute Auto 2500 /uL (1100-4500); Lymphocytes Percent Auto 44.3 % (25-40); Mean Corpuscular HGB Conc 33.9 % (30-36); Mean Corpuscular Hemoglobin 33.9 PG (26-34); Mean Corpuscular Volume 99.8 fL (80-100); Monocytes Absolute Auto 400 /uL (0-900); Monocytes Percent Auto 6.4 % (3-14); Neutrophils Absolute Auto 2700 /uL (1500-7000); Neutrophils Percent Auto 47.5 % (50-75); Platelet Count 206 X10^3/uL (150-400); Red Blood Cell Count 4.05 X10^6/uL (4.0-5.2); Red Cell Distribution Width 13.8 % (11.6-14.8); White Blood Cell Count 5.7 X10^3/uL (4.5-11.0)
[2018-07-26 15:27] LABS: Alanine Aminotransferase 30 IU/L (9-52); Albumin 4.2 g/dL (3.5-5.0); Albumin Globulin Ratio 1.4 (1.0-2.8); Alkaline Phosphatase 83 U/L (38-126); Aspartate Aminotransferase 28 IU/L (14-36); BUN Creatinine Ratio 18.3 (6-22); Bilirubin Total 0.6 mg/dL (0.2-1.3); Blood Urea Nitrogen 11 mg/dL (7-17); Calcium 9.9 mg/dL (8.4-10.2); Carbon Dioxide 27 mmol/L (22-32); Chloride 100 mmol/L (98-107); Estimated Glomerular Filt Rate > 60.0 mL/min (>60); Globulin 2.9 g/dL (1.7-4.1); Glucose 97 mg/dL (80-110); HEMOLYSIS < 15 (0-50); Potassium 4.7 mmol/L (3.4-5.1); Sodium 133 mmol/L (137-145); Total Protein 7.1 g/dL (6.3-8.2)
[2018-07-26 15:30] LABS: C-Reactive Protein Quant < 0.5 mg/dL (<1.0)
[2018-07-26 15:40] LABS: Erythrocyte Sedimentation Rate 3 MM/HR (0-20)
== END ==
PROVIDERS: PCP Internal Medicine; Visit Provider Internal Medicine Rheumatology
DX: M06.09 Rheumatoid arthritis without rheumatoid factor, multiple sites (principal); M45.7 Ankylosing spondylitis of lumbosacral region
CPT/HCPCS: 36415; 80053; 85025; 85651; 86140

== ENCOUNTER → 2018-11-09 14:12 | Outpatient (CLI) | payer MEDICARE, OTHER, SELFPAY ==
[2018-11-09 15:27] LABS: Alanine Aminotransferase 23 IU/L (9-52); Albumin Globulin Ratio 1.5 (1.0-2.8); Alkaline Phosphatase 94 U/L (38-126); Aspartate Aminotransferase 25 IU/L (14-36); BUN Creatinine Ratio 21.7 (6-22); Bilirubin Total 0.4 mg/dL (0.2-1.3); Blood Urea Nitrogen 13 mg/dL (7-17); Calcium 9.8 mg/dL (8.4-10.2); Carbon Dioxide 23 mmol/L (22-32); Chloride 106 mmol/L (98-107); Cholesterol 196 mg/dL (140-199); Estimated Glomerular Filt Rate > 60.0 mL/min (>60); Globulin 2.6 g/dL (1.7-4.1); Glucose 109 mg/dL (80-110); HDL Cholesterol 70 mg/dL (40-60); HEMOLYSIS < 15 (0-50); LDL Cholesterol Calculated 94 mg/dL (<100); Potassium 4.1 mmol/L (3.4-5.1); Sodium 137 mmol/L (137-145); Total Protein 6.6 g/dL (6.3-8.2); Triglycerides 160 mg/dL (35-150)
[2018-11-09 15:28] LABS: C-Reactive Protein Quant < 0.5 mg/dL (<1.0)
[2018-11-09 15:32] LABS: Add Manual Diff / Slide Review NO; Basophils Absolute Auto 0 /uL (0-100); Basophils Percent Auto 0.6 % (0-2); Eosinophils Absolute Auto 100 /uL (0-450); Eosinophils Percent Auto 1.9 % (2-4); Hematocrit 38.3 % (36-46); Hemoglobin 13.2 g/dL (12.0-16.0); Lymphocytes Absolute Auto 3000 /uL (1100-4500); Lymphocytes Percent Auto 45.7 % (25-40); Mean Corpuscular HGB Conc 34.5 % (30-36); Mean Corpuscular Hemoglobin 34.1 PG (26-34); Monocytes Absolute Auto 400 /uL (0-900); Monocytes Percent Auto 6.1 % (3-14); Neutrophils Absolute Auto 3000 /uL (1500-7000); Neutrophils Percent Auto 45.7 % (50-75); Platelet Count 217 X10^3/uL (150-400); Red Blood Cell Count 3.87 X10^6/uL (4.0-5.2); Red Cell Distribution Width 13.4 % (11.6-14.8); White Blood Cell Count 6.7 X10^3/uL (4.5-11.0)
[2018-11-09 15:54] LABS: TSH w/ Reflex to FT4 1.22 uIU/mL (0.47-4.68)
[2018-11-09 16:12] LABS: Erythrocyte Sedimentation Rate 3 MM/HR (0-20)
== END ==
PROVIDERS: Family Provider Nurse Practitioner; PCP Nurse Practitioner; Visit Provider Internal Medicine Rheumatology
DX: Z00.00 Encounter for general adult medical examination without abnormal findings (principal); M06.09 Rheumatoid arthritis without rheumatoid factor, multiple sites; M45.7 Ankylosing spondylitis of lumbosacral region; E88.41 MELAS syndrome
CPT/HCPCS: 36415; 80053; 80061; 84443; 85025; 85651; 86140

== ENCOUNTER → 2019-02-02 16:20 | Outpatient (CLI) | payer MEDICARE, OTHER, SELFPAY ==
[2019-02-02 17:35] LABS: Add Manual Diff / Slide Review NO; Basophils Absolute Auto 0 /uL (0-100); Basophils Percent Auto 0.6 % (0-2); Eosinophils Absolute Auto 100 /uL (0-450); Eosinophils Percent Auto 1.4 % (2-4); Hematocrit 40.6 % (36-46); Hemoglobin 13.9 g/dL (12.0-16.0); Lymphocytes Absolute Auto 3200 /uL (1100-4500); Lymphocytes Percent Auto 42.5 % (25-40); Mean Corpuscular HGB Conc 34.3 % (30-36); Mean Corpuscular Hemoglobin 34.1 PG (26-34); Mean Corpuscular Volume 99.5 fL (80-100); Monocytes Absolute Auto 300 /uL (0-900); Monocytes Percent Auto 4.5 % (3-14); Neutrophils Absolute Auto 3800 /uL (1500-7000); Platelet Count 204 X10^3/uL (150-400); Red Blood Cell Count 4.08 X10^6/uL (4.0-5.2); Red Cell Distribution Width 13.9 % (11.6-14.8); White Blood Cell Count 7.4 X10^3/uL (4.5-11.0)
[2019-02-02 17:52] LABS: Alanine Aminotransferase 29 IU/L (<35); Albumin 4.6 g/dL (3.5-5.0); Albumin Globulin Ratio 1.8 (1.0-2.8); Alkaline Phosphatase 108 U/L (38-126); Aspartate Aminotransferase 35 IU/L (14-36); BUN Creatinine Ratio 17.1 (6-22); Bilirubin Total 0.6 mg/dL (0.2-1.3); Blood Urea Nitrogen 12 mg/dL (7-17); C-Reactive Protein Quant < 0.5 mg/dL (<1.0); Calcium 10.5 mg/dL (8.4-10.2); Carbon Dioxide 25 mmol/L (22-32); Chloride 102 mmol/L (98-107); Estimated Glomerular Filt Rate > 60.0 mL/min (>60); Globulin 2.5 g/dL (1.7-4.1); Glucose 85 mg/dL (80-110); HEMOLYSIS < 15 (0-50); Potassium 5.1 mmol/L (3.4-5.1); Sodium 136 mmol/L (137-145); Total Protein 7.1 g/dL (6.3-8.2)
[2019-02-02 18:13] LABS: Erythrocyte Sedimentation Rate 4 MM/HR (0-20)
== END ==
PROVIDERS: Family Provider Nurse Practitioner; PCP Nurse Practitioner; Visit Provider Internal Medicine Rheumatology
DX: Z00.00 Encounter for general adult medical examination without abnormal findings (principal); M06.09 Rheumatoid arthritis without rheumatoid factor, multiple sites
CPT/HCPCS: 36415; 80053; 85025; 85651; 86140

== ENCOUNTER → 2019-06-13 14:13 | Outpatient (CLI) | payer MEDICARE, OTHER, SELFPAY ==
[2019-06-13 15:08] LABS: Add Manual Diff / Slide Review NO; Basophils Absolute Auto 0 /uL (0-100); Basophils Percent Auto 0.4 % (0-2); Eosinophils Absolute Auto 100 /uL (0-450); Hematocrit 42.9 % (36-46); Hemoglobin 14.9 g/dL (12.0-16.0); Lymphocytes Absolute Auto 2400 /uL (1100-4500); Lymphocytes Percent Auto 34.6 % (25-40); Mean Corpuscular HGB Conc 34.7 % (30-36); Mean Corpuscular Hemoglobin 34.6 PG (26-34); Mean Corpuscular Volume 99.6 fL (80-100); Monocytes Absolute Auto 400 /uL (0-900); Monocytes Percent Auto 6.3 % (3-14); Neutrophils Absolute Auto 4000 /uL (1500-7000); Neutrophils Percent Auto 57.7 % (50-75); Platelet Count 213 X10^3/uL (150-400); Red Cell Distribution Width 13.2 % (11.6-14.8); White Blood Cell Count 6.9 X10^3/uL (4.5-11.0)
[2019-06-13 15:17] LABS: Alanine Aminotransferase 26 IU/L (<35); Albumin 4.8 g/dL (3.5-5.0); Albumin Globulin Ratio 1.6 (1.0-2.8); Alkaline Phosphatase 77 U/L (38-126); Aspartate Aminotransferase 34 IU/L (14-36); BUN Creatinine Ratio 13.9 (6-22); Bilirubin Total 0.5 mg/dL (0.2-1.3); Blood Urea Nitrogen 10 mg/dL (7-17); Calcium 10.6 mg/dL (8.4-10.2); Carbon Dioxide 25 mmol/L (22-32); Chloride 103 mmol/L (98-107); Estimated Glomerular Filt Rate > 60.0 mL/min (>60); Glucose 129 mg/dL (80-110); HEMOLYSIS < 15 (0-50); Potassium 5.1 mmol/L (3.4-5.1); Sodium 136 mmol/L (137-145); Total Protein 7.8 g/dL (6.3-8.2)
[2019-06-13 15:18] LABS: C-Reactive Protein Quant < 0.5 mg/dL (<1.0)
[2019-06-13 15:26] LABS: Erythrocyte Sedimentation Rate 1 MM/HR (0-20)
== END ==
PROVIDERS: Family Provider Nurse Practitioner; PCP Nurse Practitioner; Referring Provider Internal Medicine Rheumatology; Visit Provider Internal Medicine Rheumatology
DX: M06.09 Rheumatoid arthritis without rheumatoid factor, multiple sites (principal); M17.11 Unilateral primary osteoarthritis, right knee; M54.5 Low back pain
CPT/HCPCS: 36415; 80053; 85025; 85651; 86140

== ENCOUNTER → 2019-09-07 11:47 | Outpatient (CLI) | payer MEDICARE, OTHER, SELFPAY ==
[2019-09-07 12:17] LABS: Add Manual Diff / Slide Review NO; Basophils Absolute Auto 100 /uL (0-100); Basophils Percent Auto 0.8 % (0-2); Eosinophils Absolute Auto 200 /uL (0-450); Eosinophils Percent Auto 2.8 % (2-4); Hematocrit 41.9 % (36-46); Hemoglobin 14.2 g/dL (12.0-16.0); Lymphocytes Absolute Auto 2800 /uL (1100-4500); Lymphocytes Percent Auto 43.6 % (25-40); Mean Corpuscular HGB Conc 33.9 % (30-36); Mean Corpuscular Volume 100.2 fL (80-100); Monocytes Absolute Auto 400 /uL (0-900); Monocytes Percent Auto 6.2 % (3-14); Neutrophils Absolute Auto 3000 /uL (1500-7000); Neutrophils Percent Auto 46.6 % (50-75); Platelet Count 221 X10^3/uL (150-400); Red Blood Cell Count 4.18 X10^6/uL (4.0-5.2); Red Cell Distribution Width 13.5 % (11.6-14.8); White Blood Cell Count 6.5 X10^3/uL (4.5-11.0)
[2019-09-07 12:55] LABS: Erythrocyte Sedimentation Rate 1 MM/HR (0-20)
[2019-09-07 13:57] LABS: Alanine Aminotransferase 30 IU/L (<35); Albumin 4.3 g/dL (3.5-5.0); Albumin Globulin Ratio 1.7 (1.0-2.8); Alkaline Phosphatase 93 U/L (38-126); Aspartate Aminotransferase 32 IU/L (14-36); BUN Creatinine Ratio 16.2 (6-22); Bilirubin Total 0.6 mg/dL (0.2-1.3); Blood Urea Nitrogen 12 mg/dL (7-17); Calcium 10.6 mg/dL (8.4-10.2); Carbon Dioxide 31 mmol/L (22-32); Chloride 100 mmol/L (98-107); Estimated Glomerular Filt Rate > 60.0 mL/min (>60); Globulin 2.5 g/dL (1.7-4.1); Glucose 88 mg/dL (80-110); HEMOLYSIS < 15 (0-50); Potassium 5.2 mmol/L (3.4-5.1); Sodium 134 mmol/L (137-145); Total Protein 6.8 g/dL (6.3-8.2)
[2019-09-07 14:06] LABS: C-Reactive Protein Quant < 0.5 mg/dL (<1.0)
== END ==
PROVIDERS: Family Provider Nurse Practitioner; PCP Nurse Practitioner; Referring Provider Internal Medicine Rheumatology; Visit Provider Internal Medicine Rheumatology
DX: M06.09 Rheumatoid arthritis without rheumatoid factor, multiple sites (principal); M17.11 Unilateral primary osteoarthritis, right knee; M54.5 Low back pain
CPT/HCPCS: 36415; 80053; 85025; 85651; 86140

== ENCOUNTER → 2019-09-20 13:08 | Outpatient (CLI) | payer MEDICARE, OTHER, SELFPAY ==
[2019-09-20 14:13] LABS: Alanine Aminotransferase 30 IU/L (<35); Albumin 4.5 g/dL (3.5-5.0); Albumin Globulin Ratio 1.6 (1.0-2.8); Alkaline Phosphatase 86 U/L (38-126); Aspartate Aminotransferase 34 IU/L (14-36); BUN Creatinine Ratio 16.2 (6-22); Bilirubin Total 0.5 mg/dL (0.2-1.3); Blood Urea Nitrogen 12 mg/dL (7-17); Calcium 10.1 mg/dL (8.4-10.2); Carbon Dioxide 26 mmol/L (22-32); Chloride 102 mmol/L (98-107); Estimated Glomerular Filt Rate > 60.0 mL/min (>60); Globulin 2.8 g/dL (1.7-4.1); Glucose 111 mg/dL (80-110); HEMOLYSIS < 15 (0-50); Potassium 4.1 mmol/L (3.4-5.1); Sodium 137 mmol/L (137-145); Total Protein 7.3 g/dL (6.3-8.2)
[2019-09-20 16:07] LABS: Hep C Virus Ab w/Reflex Quant NEGATIVE s/c (NEGATIVE)
[2019-09-21 04:08] LABS: Hepatitis B Core AB w/Reflex Negative (Negative)
[2019-09-21 10:35] LABS: Ionized Calcium 5.4 mg/dL (4.5-5.6)
[2019-09-21 14:08] LABS: Calcium 10.1 mg/dL (8.7-10.3); Parathyroid Hormone, Intact 73 pg/mL (15-65)
[2019-09-22 13:36] LABS: QuantiFERON Mitogen Value 5.18 IU/mL (.); QuantiFERON Nil Value 0.12 IU/mL (.); QuantiFERON TB Gold Plus Negative (Negative); QuantiFERON TB1 Ag Value 0.12 IU/mL (.); QuantiFERON TB2 Ag Value 0.11 IU/mL (.)
== END ==
PROVIDERS: Family Provider Nurse Practitioner; PCP Nurse Practitioner; Referring Provider Internal Medicine Rheumatology; Visit Provider Internal Medicine Rheumatology
DX: Z79.899 Other long term (current) drug therapy (principal); E83.52 Hypercalcemia
CPT/HCPCS: 36415; 80053; 82310; 82330; 83970; 86480; 86704; 86803

== ENCOUNTER → 2019-10-17 13:13 | Outpatient (CLI) | payer MEDICARE, OTHER, SELFPAY | PROVIDERS: Family Provider Nurse Practitioner; PCP Nurse Practitioner; Referring Provider Nurse Practitioner; Visit Provider Nurse Practitioner | DX: Z13.820 Encounter for screening for osteoporosis (principal); M81.0 Age-related osteoporosis without current pathological fracture; Z78.0 Asymptomatic menopausal state; M06.9 Rheumatoid arthritis, unspecified; E83.52 Hypercalcemia; N95.8 Other specified menopausal and perimenopausal disorders; Z87.891 Personal history of nicotine dependence | CPT/HCPCS: 77080 ==

== ENCOUNTER → 2019-10-29 11:12 | Outpatient (CLI) | payer MEDICARE, OTHER, SELFPAY ==
--- NOTE | 2019-10-29 11:37 | DI.MG.S_ITS ---
Patient Name: GISSELLE WEST date: 1950 Sex: F Attending Physician: Hubert Indications: Date: 10/29/2019 11:27 At the request of: NISA CM Procedure: MM screening mammo BI BILATERAL DIGITAL SCREENING MAMMOGRAM 3D/2D WITH CAD: 10/29/2019 CLINICAL: Routine screening. Comparison is made to exams dated: 12/10/2015 mammogram, 11/24/2012 mammogram, and 10/24/2011 mammogram - [facility]. There are scattered fibroglandular elements in both breasts. Current study was also evaluated with a Computer Aided Detection (CAD) system. No significant masses, calcifications, or other findings are seen in either breast. There has been no significant interval change. IMPRESSION: NEGATIVE There is no mammographic evidence of malignancy. A 1 year screening mammogram is recommended. This exam was interpreted at Station ID: [id number]. NOTE: For mammograms, a report in lay terms will be sent to the patient. Approximately 15% of breast malignancies will not be visualized mammographically. In the management of a palpable breast mass, a negative mammogram must not discourage biopsy of a clinically suspicious lesion. Electronically Signed By: Jeanine deleon/dieter:11/01/2019 08:58:40 letter sent: Normal Exam ACR BI-RADS Category 1: Negative [id number]
== END ==
PROVIDERS: Family Provider Nurse Practitioner; PCP Nurse Practitioner; Referring Provider Nurse Practitioner; Visit Provider Nurse Practitioner
DX: Z12.31 Encounter for screening mammogram for malignant neoplasm of breast (principal)
CPT/HCPCS: 77063; 77067

== ENCOUNTER → 2019-11-24 15:16 | Outpatient (CLI) | payer MEDICARE, OTHER, SELFPAY ==
[2019-11-24 17:33] LABS: Alanine Aminotransferase 29 IU/L (<35); Albumin 4.1 g/dL (3.5-5.0); Albumin Globulin Ratio 1.5 (1.0-2.8); Alkaline Phosphatase 85 U/L (38-126); Aspartate Aminotransferase 30 IU/L (14-36); BUN Creatinine Ratio 16.9 (6-22); Bilirubin Total 0.5 mg/dL (0.2-1.3); Blood Urea Nitrogen 12 mg/dL (7-17); Calcium 10.4 mg/dL (8.4-10.2); Carbon Dioxide 31 mmol/L (22-32); Chloride 101 mmol/L (98-107); Estimated Glomerular Filt Rate > 60.0 mL/min (>60); Globulin 2.7 g/dL (1.7-4.1); Glucose 102 mg/dL (80-110); HEMOLYSIS < 15 (0-50); Phosphorous 3.3 mg/dL (2.8-4.1); Sodium 136 mmol/L (137-145); Total Protein 6.8 g/dL (6.3-8.2)
[2019-11-25 09:14] LABS: Parathyroid Hormone Int 52 pg/mL (15-65)
== END ==
PROVIDERS: Family Provider Nurse Practitioner; PCP Nurse Practitioner; Referring Provider Internal Medicine Rheumatology; Visit Provider Internal Medicine Endocrinology, Diabetes & Metabolism
DX: E21.3 Hyperparathyroidism, unspecified (principal); M06.09 Rheumatoid arthritis without rheumatoid factor, multiple sites; Z79.899 Other long term (current) drug therapy
CPT/HCPCS: 36415; 80053; 82306; 83970; 84100

== ENCOUNTER → 2020-03-03 11:04 | Outpatient (CLI) | payer MEDICARE, OTHER, SELFPAY ==
[2020-03-03 13:06] LABS: Add Manual Diff / Slide Review NO; Basophils Absolute Auto 0 /uL (0-100); Basophils Percent Auto 0.4 % (0-2); Eosinophils Absolute Auto 100 /uL (0-450); Eosinophils Percent Auto 2.2 % (2-4); Hematocrit 40.4 % (36-46); Hemoglobin 13.7 g/dL (12.0-16.0); Lymphocytes Absolute Auto 2600 /uL (1100-4500); Lymphocytes Percent Auto 41.5 % (25-40); Mean Corpuscular HGB Conc 33.9 % (30-36); Mean Corpuscular Hemoglobin 33.8 PG (26-34); Mean Corpuscular Volume 99.9 fL (80-100); Monocytes Absolute Auto 400 /uL (0-900); Monocytes Percent Auto 5.6 % (3-14); Neutrophils Absolute Auto 3200 /uL (1500-7000); Neutrophils Percent Auto 50.3 % (50-75); Platelet Count 216 X10^3/uL (150-400); Red Blood Cell Count 4.04 X10^6/uL (4.0-5.2); Red Cell Distribution Width 13.4 % (11.6-14.8); White Blood Cell Count 6.3 X10^3/uL (4.5-11.0)
[2020-03-03 13:35] LABS: Cholesterol 252 mg/dL (140-199); HDL Cholesterol 96 mg/dL (40-60); LDL Cholesterol Calculated 128 mg/dL (<100); Triglycerides 138 mg/dL (35-150)
[2020-03-03 13:37] LABS: Alanine Aminotransferase 29 IU/L (<35); Albumin Globulin Ratio 1.6 (1.0-2.8); Alkaline Phosphatase 76 U/L (38-126); Aspartate Aminotransferase 33 IU/L (14-36); Bilirubin Total 0.5 mg/dL (0.2-1.3); Blood Urea Nitrogen 12 mg/dL (7-17); Calcium 9.6 mg/dL (8.4-10.2); Carbon Dioxide 28 mmol/L (22-32); Chloride 106 mmol/L (98-107); Estimated Glomerular Filt Rate > 60.0 mL/min (>60); Globulin 2.5 g/dL (1.7-4.1); Glucose 98 mg/dL (80-110); HEMOLYSIS < 15 (0-50); Potassium 4.1 mmol/L (3.4-5.1); Sodium 136 mmol/L (137-145); Total Protein 6.5 g/dL (6.3-8.2)
[2020-03-04 17:07] LABS: Ionized Calcium 5.3 mg/dL (4.5-5.6)
== END ==
PROVIDERS: Family Provider Nurse Practitioner; PCP Nurse Practitioner; Referring Provider Nurse Practitioner; Visit Provider Internal Medicine Rheumatology
DX: E78.2 Mixed hyperlipidemia (principal); Z79.899 Other long term (current) drug therapy
CPT/HCPCS: 36415; 80053; 80061; 82330; 85025

== ENCOUNTER → 2020-03-21 14:35 | Outpatient (CLI) | payer MEDICARE, OTHER, SELFPAY ==
[2020-03-21] MEDS: COVID-19 VACC #1, MRNA(MOD) 100 MCG/0.5 ML VIAL IM (14:43)
== END ==
PROVIDERS: Family Provider Nurse Practitioner; PCP Nurse Practitioner; Visit Provider Internal Medicine
DX: Z23 Encounter for immunization (principal)
CPT/HCPCS: 0011A; 91301

== ENCOUNTER → 2020-04-18 12:47 | Outpatient (CLI) | payer MEDICARE, OTHER, SELFPAY ==
[2020-04-18] MEDS: COVID-19 VACC #2, MRNA(MOD) 100 MCG/0.5 ML VIAL IM (12:57)
== END ==
PROVIDERS: Family Provider Nurse Practitioner; PCP Nurse Practitioner; Visit Provider Internal Medicine
DX: Z23 Encounter for immunization (principal)
CPT/HCPCS: 0012A; 91301

== ENCOUNTER → 2020-05-08 15:57 | Outpatient (CLI) | payer MEDICARE, OTHER, SELFPAY ==
[2020-05-08 16:19] LABS: Add Manual Diff / Slide Review NO; Basophils Absolute Auto 100 /uL (0-100); Basophils Percent Auto 0.7 % (0-2); Eosinophils Absolute Auto 200 /uL (0-450); Eosinophils Percent Auto 2.5 % (2-4); Hematocrit 41.4 % (36-46); Hemoglobin 14.2 g/dL (12.0-16.0); Lymphocytes Absolute Auto 3100 /uL (1100-4500); Lymphocytes Percent Auto 39.3 % (25-40); Mean Corpuscular HGB Conc 34.2 % (30-36); Mean Corpuscular Hemoglobin 33.7 PG (26-34); Mean Corpuscular Volume 98.5 fL (80-100); Monocytes Absolute Auto 400 /uL (0-900); Monocytes Percent Auto 5.4 % (3-14); Neutrophils Absolute Auto 4100 /uL (1500-7000); Neutrophils Percent Auto 52.1 % (50-75); Platelet Count 214 X10^3/uL (150-400); Red Blood Cell Count 4.21 X10^6/uL (4.0-5.2); Red Cell Distribution Width 13.4 % (11.6-14.8); White Blood Cell Count 7.9 X10^3/uL (4.5-11.0)
[2020-05-08 16:50] LABS: Alanine Aminotransferase 27 IU/L (<35); Albumin 4.5 g/dL (3.5-5.0); Albumin Globulin Ratio 1.5 (1.0-2.8); Alkaline Phosphatase 96 U/L (38-126); Aspartate Aminotransferase 35 IU/L (14-36); BUN Creatinine Ratio 17.8 (6-22); Bilirubin Total 0.6 mg/dL (0.2-1.3); Blood Urea Nitrogen 13 mg/dL (7-17); Calcium 10.5 mg/dL (8.4-10.2); Carbon Dioxide 27 mmol/L (22-32); Chloride 105 mmol/L (98-107); Estimated Glomerular Filt Rate > 60.0 mL/min (>60); Glucose 102 mg/dL (80-110); HEMOLYSIS 17 (0-50); Potassium 3.9 mmol/L (3.4-5.1); Sodium 137 mmol/L (137-145); Total Protein 7.5 g/dL (6.3-8.2)
[2020-05-08 16:52] LABS: C-Reactive Protein Quant < 0.5 mg/dL (<1.0)
[2020-05-08 16:59] LABS: Erythrocyte Sedimentation Rate 4 MM/HR (0-20)
== END ==
PROVIDERS: Family Provider Nurse Practitioner; PCP Nurse Practitioner; Referring Provider Internal Medicine Rheumatology; Visit Provider Internal Medicine Rheumatology
DX: M06.09 Rheumatoid arthritis without rheumatoid factor, multiple sites (principal); Z79.899 Other long term (current) drug therapy; M19.90 Unspecified osteoarthritis, unspecified site
CPT/HCPCS: 36415; 80053; 85025; 85651; 86140

== ENCOUNTER → 2020-06-21 15:26 | Outpatient (CLI) | payer MEDICARE, OTHER, SELFPAY ==
[2020-06-21 16:48] LABS: Alanine Aminotransferase 21 IU/L (<35); Albumin Globulin Ratio 1.4 (1.0-2.8); Alkaline Phosphatase 86 U/L (38-126); Aspartate Aminotransferase 29 IU/L (14-36); BUN Creatinine Ratio 20.6 (6-22); Bilirubin Total 0.4 mg/dL (0.2-1.3); Blood Urea Nitrogen 14 mg/dL (7-17); Calcium 10.1 mg/dL (8.4-10.2); Carbon Dioxide 24 mmol/L (22-32); Chloride 102 mmol/L (98-107); Estimated Glomerular Filt Rate > 60.0 mL/min (>60); Globulin 2.8 g/dL (1.7-4.1); Glucose 101 mg/dL (80-110); HEMOLYSIS < 15 (0-50); Potassium 3.9 mmol/L (3.4-5.1); Sodium 134 mmol/L (137-145); Total Protein 6.8 g/dL (6.3-8.2)
[2020-06-26 14:20] LABS: Alanine Aminotransferase 18 IU/L (<35)
[2020-06-26 15:31] LABS: HIV 1 & 2 Ab/Ag 4th Gen Combo NEGATIVE (NEGATIVE); Hep C Virus Ab w/Reflex Quant NEGATIVE s/c (NEGATIVE); Hepatitis B Surface Antigen NEGATIVE s/c (NEGATIVE)
== END ==
PROVIDERS: Family Provider Nurse Practitioner; PCP Nurse Practitioner; Referring Provider Internal Medicine Rheumatology; Visit Provider Internal Medicine Rheumatology
DX: M06.09 Rheumatoid arthritis without rheumatoid factor, multiple sites (principal); Z79.899 Other long term (current) drug therapy
CPT/HCPCS: 36415; 80053; 84460; 86706; 86803; 87340; 87389

== ENCOUNTER → 2020-10-22 19:32 | Outpatient (ROUT) | payer MEDICARE, OTHER, SELFPAY ==
[2020-10-22 19:33] LABS: Bacteria Urine None Seen
[2020-10-22 20:09] LABS: Appearance Urine UA CLEAR; Bilirubin Urine UA NEGATIVE (NEGATIVE); Color Urine UA YELLOW; Glucose Urine UA NEGATIVE (Negative); Ketones Urine UA TRACE (NEGATIVE); Leukocyte Esterase Urine UA 1+ (NEGATIVE); Nitrite Urine UA NEGATIVE (Negative); Occult Blood Urine UA 2+ (Negative); Protein Urine UA NEGATIVE (Negative); Specific Gravity Urine UA 1.025 (1.000-1.035); Urobilinogen Urine UA 0.2 E.U./dL (0.2)
[2020-10-22 20:25] LABS: Amorphous Sediment Urine 2+; RBC Urine 1-5/HPF (0-5/HPF); Squamous Epithelial Cell Urine 5-10 /HPF (0-5/HPF); WBC Urine 5-10/HPF (0-5/HPF)
[2020-10-22 20:26] LABS: Culture Indicated Urine Cult Not Indicated
== END ==
PROVIDERS: Family Provider Nurse Practitioner; PCP Nurse Practitioner; Visit Provider Nurse Practitioner
DX: R35.0 Frequency of micturition (principal); R39.15 Urgency of urination; R32 Unspecified urinary incontinence
CPT/HCPCS: 81001

== ENCOUNTER → 2020-10-23 09:06 | Outpatient (CLI) | payer MEDICARE, OTHER, SELFPAY | PROVIDERS: Family Provider Nurse Practitioner; PCP Nurse Practitioner; Visit Provider Nurse Practitioner | DX: R30.0 Dysuria (principal); R31.9 Hematuria, unspecified; N39.0 Urinary tract infection, site not specified | CPT/HCPCS: 87086 ==

== ENCOUNTER → 2020-10-30 10:52 | Outpatient (CLI) | payer MEDICARE, OTHER, SELFPAY ==
--- NOTE | 2020-10-30 10:56 | DI.RAD.S_ITS ---
PROCEDURE: XR HAND RT MIN 3V INDICATIONS: WRIST PAIN TECHNIQUE: 3 views of the hand(s) acquired. COMPARISON: None. FINDINGS: Bones: No fractures or dislocations. Severe 1st CMC joint osteoarthritic changes are seen. Moderate osteoarthritic changes are noted at 1st interphalangeal joint, scaphoid trapezial joint and radiocarpal joint. Mild osteoarthritic changes throughout 2nd through 5th PIP and DIP joints are also seen. Carpal bones are normally aligned. No suspicious bony lesions. Soft tissues: No suspicious soft tissue calcifications. IMPRESSION: Osteoarthritic changes throughout right hand and wrist most prominent at 1st CMC joint. No fracture or dislocation. Dictated by: Rudolph Umanzor M.D. on 10/30/2020 at 12:23 Approved by: Rudolph Umanzor M.D. on 10/30/2020 at 12:24
--- NOTE | 2020-10-30 10:56 | DI.RAD.S_ITS ---
PROCEDURE: XR HAND LT MIN 3V INDICATIONS: WRIST PAIN TECHNIQUE: 3 views of the hand(s) acquired. COMPARISON: None. FINDINGS: Bones: Three views of the left wrist demonstrate degenerative changes of the interphalangeal joints and the 1st carpometacarpal joint consistent with osteoarthritis. There is no fracture or dislocation. No erosions or evidence of inflammatory arthropathy. Soft tissues: No suspicious soft tissue calcifications. IMPRESSION: Degenerative changes of the left hand and wrist consistent with osteoarthritis. Dictated by: Tony Sneed M.D. on 10/30/2020 at 16:36 Approved by: Tony Sneed M.D. on 10/30/2020 at 16:38
--- NOTE | 2020-10-30 10:56 | DI.RAD.S_ITS ---
PROCEDURE: XR WRIST LT MIN 3V INDICATIONS: WRIST PAIN TECHNIQUE: 3 views of the wrist were acquired. COMPARISON: None. FINDINGS: Bones: No acute fracture identified. Marginal lucency seen at the base of the 2nd metacarpal which raise the possibility of erosion. Marginal lucencies at the base of the 1st metacarpal. Severe 1st CMC and triscaphe joint degeneration. Soft tissues: No suspicious soft tissue calcifications. IMPRESSION: Severe left wrist joint degeneration as above. Marginal lucencies at the base of the 2nd and 1st metacarpals raising possibility of erosions. Dictated by: Jackson Myles M.D. on 10/30/2020 at 12:58 Approved by: Jackson Myles M.D. on 10/30/2020 at 13:00
--- NOTE | 2020-10-30 10:56 | DI.RAD.S_ITS ---
PROCEDURE: XR WRIST RT MIN 3V INDICATIONS: WRIST PAIN TECHNIQUE: 3 views of the wrist were acquired. COMPARISON: None. FINDINGS: Bones: Three views of the right wrist demonstrate degenerative changes of the 1st carpometacarpal joint and metacarpophalangeal joint consistent with osteoarthritis. No fracture or dislocation. No erosions or evidence of inflammatory arthropathy. Soft tissues: No suspicious soft tissue calcifications. IMPRESSION: Degenerative changes of the right wrist consistent with osteoarthritis. Dictated by: Tony Sneed M.D. on 10/30/2020 at 16:38 Approved by: Tony Sneed M.D. on 10/30/2020 at 16:39
[2020-10-30 12:01] LABS: Alanine Aminotransferase 26 IU/L (<35); Albumin 4.4 g/dL (3.5-5.0); Albumin Globulin Ratio 1.6 (1.0-2.8); Alkaline Phosphatase 83 U/L (38-126); Aspartate Aminotransferase 35 IU/L (14-36); BUN Creatinine Ratio 21.3 (6-22); Bilirubin Total 0.7 mg/dL (0.2-1.3); Blood Urea Nitrogen 17 mg/dL (7-17); Calcium 10.4 mg/dL (8.4-10.2); Carbon Dioxide 27 mmol/L (22-32); Chloride 107 mmol/L (98-107); Cholesterol 245 mg/dL (140-199); Estimated Glomerular Filt Rate > 60.0 mL/min (>60); Globulin 2.8 g/dL (1.7-4.1); Glucose 102 mg/dL (80-110); HDL Cholesterol 80 mg/dL (40-60); HEMOLYSIS < 15 (0-50); LDL Cholesterol Calculated 138 mg/dL (<100); Potassium 4.3 mmol/L (3.4-5.1); Sodium 139 mmol/L (137-145); Total Protein 7.2 g/dL (6.3-8.2); Triglycerides 136 mg/dL (35-150)
[2020-10-30 12:19] LABS: Free T3, Triiodothyronine Free 4.16 pg/mL (2.77-5.27); Free T4, Direct Thyroxine 1.12 ng/dL (0.78-2.19)
[2020-10-30 12:33] LABS: Thyroid Stimulating Hormone 1.69 uIU/mL (0.47-4.68)
== END ==
PROVIDERS: Family Provider Nurse Practitioner; PCP Nurse Practitioner; Referring Provider Internal Medicine Rheumatology; Visit Provider Internal Medicine Rheumatology
DX: M06.09 Rheumatoid arthritis without rheumatoid factor, multiple sites (principal); M19.032 Primary osteoarthritis, left wrist; M18.12 Unilateral primary osteoarthritis of first carpometacarpal joint, left hand; I10 Essential (primary) hypertension; E78.00 Pure hypercholesterolemia, unspecified; E83.52 Hypercalcemia; M19.90 Unspecified osteoarthritis, unspecified site; Z79.899 Other long term (current) drug therapy
CPT/HCPCS: 36415; 73110; 73130; 80053; 80061; 84439; 84443; 84481

== ENCOUNTER → 2020-11-02 13:38 | Outpatient (CLI) | payer MEDICARE, OTHER, SELFPAY ==
[2020-11-02 13:43] LABS: RBC Urine None Seen (0-5/HPF)
[2020-11-02 14:22] LABS: Appearance Urine UA CLEAR; Bilirubin Urine UA NEGATIVE (NEGATIVE); Color Urine UA YELLOW; Glucose Urine UA NEGATIVE (Negative); Ketones Urine UA NEGATIVE (NEGATIVE); Leukocyte Esterase Urine UA TRACE (NEGATIVE); Nitrite Urine UA NEGATIVE (Negative); Occult Blood Urine UA NEGATIVE (Negative); Protein Urine UA TRACE (Negative); Urobilinogen Urine UA 0.2 E.U./dL (0.2)
[2020-11-02 14:29] LABS: Bacteria Urine Occasional (0-1); Culture Indicated Urine Specimen Cultured; Squamous Epithelial Cell Urine 1-5 /HPF (0-5/HPF); WBC Urine 1-5/HPF (0-5/HPF)
== END ==
PROVIDERS: Family Provider Nurse Practitioner; PCP Nurse Practitioner; Referring Provider Nurse Practitioner; Visit Provider Nurse Practitioner
DX: R35.0 Frequency of micturition (principal)
CPT/HCPCS: 81001; 87086

== ENCOUNTER → 2020-11-23 13:12 | Outpatient (CLI) | payer MEDICARE, OTHER, SELFPAY ==
[2020-11-23 14:02] LABS: Appearance Urine UA CLEAR; Bilirubin Urine UA NEGATIVE (NEGATIVE); Color Urine UA YELLOW; Glucose Urine UA NEGATIVE (Negative); Ketones Urine UA NEGATIVE (NEGATIVE); Leukocyte Esterase Urine UA TRACE (NEGATIVE); Nitrite Urine UA NEGATIVE (Negative); Occult Blood Urine UA NEGATIVE (Negative); Protein Urine UA 1+ (Negative); Specific Gravity Urine UA 1.015 (1.000-1.035); Urobilinogen Urine UA 0.2 E.U./dL (0.2)
[2020-11-23 14:09] LABS: RBC Urine None Seen (0-5/HPF); Squamous Epithelial Cell Urine 5-10 /HPF (0-5/HPF); WBC Urine 0-1/HPF (0-5/HPF)
[2020-11-23 14:10] LABS: Amorphous Sediment Urine 1+; Bacteria Urine Moderate (10-30); Culture Indicated Urine Cult Not Indicated
== END ==
PROVIDERS: Family Provider Nurse Practitioner; PCP Nurse Practitioner; Referring Provider Nurse Practitioner; Visit Provider Nurse Practitioner
DX: R35.0 Frequency of micturition (principal)
CPT/HCPCS: 81001

== ENCOUNTER → 2021-10-10 13:04 | Outpatient (CLI) | payer MEDICARE, OTHER, SELFPAY | PROVIDERS: Family Provider Nurse Practitioner; PCP Nurse Practitioner; Visit Provider Nurse Practitioner Critical Care Medicine | DX: R30.0 Dysuria (principal) | CPT/HCPCS: 87086 ==

== ENCOUNTER → 2021-10-23 10:54 | Outpatient (CLI) | payer MEDICARE, OTHER, SELFPAY | PROVIDERS: Family Provider Nurse Practitioner; PCP Nurse Practitioner; Visit Provider Physician Assistant | DX: N39.0 Urinary tract infection, site not specified (principal) | CPT/HCPCS: 87086 ==

== ENCOUNTER → 2022-02-03 12:40 | Outpatient (CLI) | payer MEDICARE, OTHER, SELFPAY ==
[2022-02-03 14:01] LABS: Appearance Urine UA CLEAR; Bilirubin Urine UA NEGATIVE (NEGATIVE); Color Urine UA YELLOW; Glucose Urine UA NEGATIVE (Negative); Ketones Urine UA TRACE (NEGATIVE); Leukocyte Esterase Urine UA 3+ (NEGATIVE); Nitrite Urine UA NEGATIVE (Negative); Occult Blood Urine UA NEGATIVE (Negative); Protein Urine UA TRACE (Negative); Specific Gravity Urine UA >=1.030 (1.000-1.035); Urobilinogen Urine UA 0.2 E.U./dL (0.2)
[2022-02-03 14:11] LABS: Bacteria Urine Few (2-10); Calcium Oxalate Crystals Urine Occasional; Culture Indicated Urine Specimen Cultured; RBC Urine None Seen (0-5/HPF); Squamous Epithelial Cell Urine 1-5 /HPF (0-5/HPF); WBC Urine 1-5/HPF (0-5/HPF)
== END ==
PROVIDERS: Family Provider Nurse Practitioner; PCP Nurse Practitioner; Referring Provider Nurse Practitioner; Visit Provider Nurse Practitioner
DX: R30.0 Dysuria (principal)
CPT/HCPCS: 81001; 87086

== ENCOUNTER → 2022-03-03 10:58 | Outpatient (CLI) | payer MEDICARE, OTHER, SELFPAY ==
[2022-03-03 12:19] LABS: Alanine Aminotransferase 23 IU/L (<35); Albumin 4.2 g/dL (3.5-5.0); Albumin Globulin Ratio 1.4 (1.0-2.8); Alkaline Phosphatase 70 U/L (38-126); Aspartate Aminotransferase 27 IU/L (14-36); BUN Creatinine Ratio 13.3 (6-22); Bilirubin Total 0.6 mg/dL (0.2-1.3); Blood Urea Nitrogen 11 mg/dL (7-17); Calcium 10.1 mg/dL (8.4-10.2); Carbon Dioxide 26 mmol/L (22-32); Chloride 103 mmol/L (98-107); Cholesterol 225 mg/dL (140-199); Estimated Glomerular Filt Rate > 60 mL/min (>60); Globulin 2.9 g/dL (1.7-4.1); Glucose 92 mg/dL (80-110); HDL Cholesterol 83 mg/dL (40-60); HEMOLYSIS < 15 (0-50); LDL Cholesterol Calculated 116 mg/dL (<100); Potassium 3.9 mmol/L (3.4-5.1); Sodium 138 mmol/L (137-145); Total Protein 7.1 g/dL (6.3-8.2); Triglycerides 130 mg/dL (35-150)
[2022-03-03 12:35] LABS: Free T3, Triiodothyronine Free 4.01 pg/mL (2.77-5.27); Free T4, Direct Thyroxine 1.22 ng/dL (0.78-2.19)
[2022-03-03 12:48] LABS: Thyroid Stimulating Hormone 1.77 uIU/mL (0.47-4.68)
[2022-03-03 12:55] LABS: Bilirubin Urine UA NEGATIVE (NEGATIVE); Color Urine UA YELLOW; Glucose Urine UA NEGATIVE (Negative); Ketones Urine UA NEGATIVE (NEGATIVE); Leukocyte Esterase Urine UA 2+ (NEGATIVE); Nitrite Urine UA NEGATIVE (Negative); Occult Blood Urine UA NEGATIVE (Negative); Protein Urine UA TRACE (Negative); Urobilinogen Urine UA 0.2 E.U./dL (0.2)
[2022-03-03 12:59] LABS: Appearance Urine UA Slightly Cloudy
[2022-03-03 13:08] LABS: Bacteria Urine Moderate (10-30); Culture Indicated Urine Specimen Cultured; RBC Urine None Seen (0-5/HPF); Squamous Epithelial Cell Urine 1-5 /HPF (0-5/HPF); WBC Urine 10-30/HPF (0-5/HPF)
[2022-03-03 14:17] LABS: Creatinine Urine Random 179.7 mg/dL
[2022-03-03 14:21] LABS: Microalbumi Creatinin Ratio Ur 8.3 ug/mg CR (<30); Microalbumin Urine Random 1.5 mg/dL (0-1.6)
[2022-03-04 12:13] LABS: Fecal Immunochemical Test Negative (Negative)
== END ==
PROVIDERS: Family Provider Nurse Practitioner; PCP Nurse Practitioner; Referring Provider Nurse Practitioner; Visit Provider Nurse Practitioner
DX: E78.00 Pure hypercholesterolemia, unspecified (principal); E83.52 Hypercalcemia; I10 Essential (primary) hypertension; M81.0 Age-related osteoporosis without current pathological fracture; Z79.899 Other long term (current) drug therapy; R30.0 Dysuria; Z12.11 Encounter for screening for malignant neoplasm of colon
CPT/HCPCS: 36415; 80053; 80061; 81001; 82043; 82274; 82570; 84439; 84443; 84481; 87086

== ENCOUNTER → 2022-03-20 13:41 | Outpatient (CLI) | payer MEDICARE, OTHER, SELFPAY ==
--- NOTE | 2022-03-20 13:44 | DI.MG.S_ITS ---
BILATERAL DIGITAL SCREENING MAMMOGRAM 3D/2D WITH CAD: 03/20/2022 CLINICAL: Routine screening. Comparison is made to exams dated: 10/29/2019 mammogram - [facility], 11/24/2012 mammogram, and 12/10/2015 mammogram - [facility]. Both breasts are heterogeneously dense, which may obscure small masses (category c / 51-75% glandular tissue). Current study was also evaluated with a Computer Aided Detection (CAD) system. There are new grouped calcifications in the right breast central to the nipple middle depth. No other significant masses, calcifications, or other findings are seen in either breast. IMPRESSION: INCOMPLETE: NEEDS ADDITIONAL IMAGING EVALUATION The new grouped calcifications in the right breast are indeterminate. Additional views with possible ultrasound are recommended. Based on the Tyrer Cuzick model (a risk assessment model) the patient's lifetime risk is 8.4% and her 10 year risk is 6.3%. According to the ACR, ACS, and NCCN guidelines, an annual breast MRI exam along with mammogram is recommended if the patient's lifetime risk is 20% or greater. This exam was interpreted at Station ID: [id number]. NOTE: For mammograms, a report in lay terms will be sent to the patient. Approximately 15% of breast malignancies will not be visualized mammographically. In the management of a palpable breast mass, a negative mammogram must not discourage biopsy of a clinically suspicious lesion. Electronically Signed By: Nestor Strauss M.D. /:03/20/2022 15:57:53 letter sent: Additional Imaging Needed ACR BI-RADS Category 0: Incomplete [id number]
--- NOTE | 2022-03-20 13:44 | DI.RAD.S_ITS ---
PROCEDURE: XR DEXA AXIAL SKELETON INDICATIONS: post menopausal osteoporosis COMPARISON: [facility], CR, XR DEXA AXIAL SKELETON, 10/17/2019, 13:42. FINDINGS: This blank DEXA report has been sent in error by the PACS system. The correct and complete report will be forthcoming in 1-2 days. Thank you for your patience and understanding. Dictated by: Dao Goel M.D. on 03/20/2022 at 18:48 Approved by: Dao Goel M.D. on 03/20/2022 at 18:48
[2022-03-20 14:31] LABS: Appearance Urine UA CLEAR; Bilirubin Urine UA NEGATIVE (NEGATIVE); Color Urine UA YELLOW; Glucose Urine UA NEGATIVE (Negative); Ketones Urine UA NEGATIVE (NEGATIVE); Leukocyte Esterase Urine UA 1+ (NEGATIVE); Nitrite Urine UA NEGATIVE (Negative); Occult Blood Urine UA NEGATIVE (Negative); Protein Urine UA TRACE (Negative); Specific Gravity Urine UA 1.025 (1.000-1.035); Urobilinogen Urine UA 0.2 E.U./dL (0.2)
[2022-03-20 14:36] LABS: RBC Urine None Seen (0-5/HPF); WBC Urine 10-30/HPF (0-5/HPF)
[2022-03-20 14:37] LABS: Amorphous Sediment Urine 1+; Bacteria Urine Moderate (10-30); Culture Indicated Urine Specimen Cultured; Squamous Epithelial Cell Urine 1-5 /HPF (0-5/HPF)
== END ==
PROVIDERS: Family Provider Nurse Practitioner; PCP Nurse Practitioner; Referring Provider Nurse Practitioner; Visit Provider Nurse Practitioner
DX: Z12.31 Encounter for screening mammogram for malignant neoplasm of breast (principal); M81.0 Age-related osteoporosis without current pathological fracture; N39.0 Urinary tract infection, site not specified; Z79.83 Long term (current) use of bisphosphonates; Z92.23 Personal history of estrogen therapy
CPT/HCPCS: 77063; 77067; 77080; 81003; 81015; 87086

== ENCOUNTER → 2022-04-11 11:56 | Outpatient (CLI) | payer MEDICARE, OTHER, SELFPAY ==
--- NOTE | 2022-04-11 11:57 | DI.MG.S_ITS ---
UNILATERAL RIGHT DIGITAL DIAGNOSTIC MAMMOGRAM 3D/2D WITH ADDITIONAL VIEWS: 04/11/2022 CLINICAL: Additional evaluation requested from prior study. Comparison is made to exams dated: 03/20/2022 mammogram, 10/29/2019 mammogram - [facility], and 12/10/2015 mammogram - [facility]. The right breast is heterogeneously dense, which may obscure small masses (category c / 51-75% glandular tissue). There are new grouped heterogeneous calcifications in the right breast central to the nipple middle depth. These are seen in additional views. No other significant masses or calcifications are seen in the breast. IMPRESSION: SUSPICIOUS OF MALIGNANCY The new grouped heterogeneous calcifications in the right breast are at a low suspicion for malignancy. A stereotactic biopsy is recommended. Based on the Tyrer Cuzick model (a risk assessment model) the patient's lifetime risk is 8.4% and her 10 year risk is 6.3%. According to the ACR, ACS, and NCCN guidelines, an annual breast MRI exam along with mammogram is recommended if the patient's lifetime risk is 20% or greater. This exam was interpreted at Station ID: [id number]. NOTE: For mammograms, a report in lay terms will be sent to the patient. Approximately 15% of breast malignancies will not be visualized mammographically. In the management of a palpable breast mass, a negative mammogram must not discourage biopsy of a clinically suspicious lesion. SUMMARY: This was discussed with the patient by Dr. varghese at the time of the exam. Electronically Signed By: Jeanine Diaz M.D. lk/:04/11/2022 12:30:08 letter sent: Biopsy Required ACR BI-RADS Category 4a: Suspicious abnormality - low suspicion for malignancy 3344F
== END ==
PROVIDERS: Family Provider Nurse Practitioner; PCP Nurse Practitioner; Referring Provider Nurse Practitioner; Visit Provider Nurse Practitioner
DX: R92.8 Other abnormal and inconclusive findings on diagnostic imaging of breast (principal); R92.1 Mammographic calcification found on diagnostic imaging of breast
CPT/HCPCS: 77065; G0279

== ENCOUNTER → 2022-04-17 13:40 | Outpatient (CLI) | payer MEDICARE, OTHER, SELFPAY ==
--- NOTE | 2022-04-17 13:41 | DI.ECHO.S_ITS ---
[facility]---------+ [facility] +---------+ : : [address] : : : : [id number] : : : : Phone: [phone]---------+ Echocardiogram Report + + :Name: GISSELLE WEST Study Date: 04/17/2022 Height: 64 in : :[facility] ReadingLocation: Weight: 169 lb : : Gender: Female BSA: 1.8 m2 : :: 1950 Age: 71 yrs BP: 148/73 mmHg: :Reason For Study: Hypertension : :Ordering Physician: SOILA, : :NISA Performed By: Amairani Grier : :Referring: NISA CM : + + Interpretation Summary The left ventricle is normal in size.The ejection fraction is estimated to be 60-65%. The right ventricle is normal in size and function. There is mild to moderate tricuspid regurgitation. The right ventricular systolic pressure is estimated to be at least 41.4 mmHg based on an estimated right atrial pressure of 8 mm Hg. There is aortic root sclerosis/calcification. Mild atherosclerotic plaque(s) in the aortic arch. Procedure: A two-dimensional transthoracic echocardiogram with color flow and Doppler was performed. The study quality was technically good. There is no prior echocardiogram noted for this patient. The patient was in sinus bradycardia with heart rates between 58-66 bpm during the exam. Left Ventricle: The left ventricle is normal in size. Proximal septal thickening is noted. There is no echo evidence for significant left ventricular outflow tract obstruction. There is no thrombus. The ejection fraction is estimated to be 60-65%. Left ventricular systolic function is normal. There are no focal wall motion abnormalities. MV E/A: 1.3 Med Peak E' Austen: 9.7 cm/sec E/E' med: 10.7. Right Ventricle: The right ventricle is normal in size and function. Atria: The left atrial size is normal. Right atrial size is normal. There is no Doppler evidence for an interatrial shunt. Mitral Valve: The mitral valve leaflets appear borderline thickened, but open well. There is mild mitral regurgitation. Aortic Valve: The aortic valve is normal in structure and function. The aortic valve is trileaflet. There is no aortic valve stenosis. No aortic regurgitation is present. Tricuspid Valve: The tricuspid valve is normal. There is mild to moderate tricuspid regurgitation. The right ventricular systolic pressure is estimated to be at least 41.4 mmHg based on an estimated right atrial pressure of 8 mm Hg. Pulmonic Valve: The pulmonic valve leaflets are thin and pliable; valve motion is normal. There is no pulmonic valvular regurgitation. Great Vessels: The aortic root is normal size. There is aortic root sclerosis/calcification. The ascending aorta is normal in size. Mild atherosclerotic plaque(s) in the aortic arch. The pulmonary artery is normal size. The IVC is dilated (diameter is greater than 2.1 cm) yet it collapses greater than 50% with a sniff. This suggests a right atrial pressure of 8 mm Hg. Pericardium/ Pleura There is no pericardial effusion. There is no pleural effusion. MMode/2D Measurements & Calculations LVIDd: 4.4 cm LVOT diam: 1.9 cm LVIDs: 2.7 cm Ao root diam: 2.9 cm FS: 38.6 % asc Aorta Diam: 3.4 cm EPSS: 1.2 cm IVSd: 0.90 cm LVPWd: 0.90 cm LV nguyễn. diameter/BSA (cm/m^2): 2.4 LV sys. diameter/BSA (cm/m^2): 1.5 LA dimension: 3.5 cm RA long axis: 4.3 cm LA A2 area: 19.3 cm2 RA area: 12.1 cm2 LA A4 area: 15.4 cm2 RA vol: 28.8 ml LA length (vol): 5.2 cm RA : 15.8 ml/m2 LA vol: 49.0 ml IVC diam: 2.2 cm LA vol index: 26.9 ml/m2 RVD1 (basal): 2.8 cm LVLs ap4: 5.5 cm LVLd ap2: 7.1 cm TAPSE_phl: 2.7 cm LVLs ap2: 5.7 cm Doppler Measurements & Calculations Ao V2 max: 166.0 cm/sec LVOT Max Austen: 129.0 cm/sec Ao V2 mean: 112.0 cm/sec LV V1 max P.7 mmHg Ao max P.0 mmHg LV V1 VTI: 31.2 cm Ao mean P.0 mmHg GABY(I,D): 2.2 cm2 Ao V2 VTI: 39.5 cm GABY(V,D): 2.2 cm2 sev ratio: 0.79 GABY indexed to BSA (cm^2/m^2): 1.2 MV E max austen: 103.0 cm/sec TR max austen: 289.0 cm/sec MV A max austen: 78.8 cm/sec TR max P.4 mmHg MV E/A: 1.3 PA V2 max: 105.0 cm/sec Med Peak E' Austen: 9.7 cm/sec PA V2 mean: 71.8 cm/sec E/E' med: 10.7 PA mean P.0 mmHg Lat Peak E' Austen: 10.3 cm/sec E/E' lat: 10.0 E/e' average: 10.3 MV dec time: 0.30 sec SV(LVOT): 88.5 ml AV VR_phl: 0.78 GABY(VTI)/BSA_phl: 1.2 MV P1/2t-pr_phl: 87.0 msec Reading Physician:03:22 PM
== END ==
PROVIDERS: Family Provider Nurse Practitioner; PCP Nurse Practitioner; Referring Provider Nurse Practitioner; Visit Provider Nurse Practitioner
DX: I08.1 Rheumatic disorders of both mitral and tricuspid valves (principal); I70.0 Atherosclerosis of aorta; I10 Essential (primary) hypertension
CPT/HCPCS: 93306

== ENCOUNTER → 2022-07-25 11:53 | Outpatient (CLI) | payer MEDICARE, OTHER, SELFPAY ==
[2022-07-25 14:01] LABS: Cholesterol 210 mg/dL (140-199); HDL Cholesterol 88 mg/dL (40-60); LDL Cholesterol Calculated 105 mg/dL (<100); Triglycerides 85 mg/dL (35-150)
== END ==
PROVIDERS: Family Provider Nurse Practitioner; PCP Nurse Practitioner; Referring Provider Nurse Practitioner; Visit Provider Nurse Practitioner
DX: E78.00 Pure hypercholesterolemia, unspecified (principal); Z79.899 Other long term (current) drug therapy
CPT/HCPCS: 36415; 80061

== ENCOUNTER → 2022-10-20 11:29 | Outpatient (CLI) | payer MEDICARE, OTHER, SELFPAY ==
[2022-10-20 15:25] LABS: Hep C Virus Ab w/Reflex Quant NEGATIVE s/c (NEGATIVE)
[2022-10-21 02:16] LABS: Hepatitis B Surf AB Quant <3.1 mIU/mL (Immunity>9.9)
[2022-10-22 16:56] LABS: QuantiFERON Mitogen Value >10.00 IU/mL (.); QuantiFERON Nil Value 0.06 IU/mL (.); QuantiFERON TB Gold Plus Negative (Negative); QuantiFERON TB1 Ag Value 0.04 IU/mL (.); QuantiFERON TB2 Ag Value 0.05 IU/mL (.)
== END ==
PROVIDERS: Family Provider Nurse Practitioner; PCP Nurse Practitioner; Referring Provider Internal Medicine Rheumatology; Visit Provider Internal Medicine Rheumatology
DX: M06.09 Rheumatoid arthritis without rheumatoid factor, multiple sites (principal); Z79.899 Other long term (current) drug therapy
CPT/HCPCS: 36415; 86480; 86706; 86803

== ENCOUNTER → 2023-01-13 15:25 | Outpatient (CLI) | payer MEDICARE, OTHER, SELFPAY ==
[2023-01-13 16:29] LABS: Add Manual Diff / Slide Review NO; Basophils Absolute Auto 100 /uL (0-100); Basophils Percent Auto 0.8 % (0-2); Eosinophils Absolute Auto 200 /uL (0-450); Eosinophils Percent Auto 2.6 % (2-4); Hematocrit 40.1 % (36-46); Hemoglobin 13.6 g/dL (12.0-16.0); Lymphocytes Absolute Auto 2900 /uL (1100-4500); Lymphocytes Percent Auto 42.8 % (25-40); Mean Corpuscular HGB Conc 33.9 % (30-36); Mean Corpuscular Hemoglobin 33.6 PG (26-34); Mean Corpuscular Volume 99.1 fL (80-100); Monocytes Absolute Auto 400 /uL (0-900); Monocytes Percent Auto 6.4 % (3-14); Neutrophils Absolute Auto 3200 /uL (1500-7000); Neutrophils Percent Auto 47.4 % (50-75); Platelet Count 189 X10^3/uL (150-400); Red Blood Cell Count 4.05 X10^6/uL (4.0-5.2); Red Cell Distribution Width 13.6 % (11.6-14.8); White Blood Cell Count 6.7 X10^3/uL (4.5-11.0)
[2023-01-13 17:09] LABS: Alanine Aminotransferase 21 IU/L (<35); Albumin 4.2 g/dL (3.5-5.0); Albumin Globulin Ratio 1.4 (1.0-2.8); Alkaline Phosphatase 81 U/L (38-126); Aspartate Aminotransferase 27 IU/L (14-36); BUN Creatinine Ratio 22.1 (6-22); Bilirubin Total 0.6 mg/dL (0.2-1.3); Blood Urea Nitrogen 19 mg/dL (7-17); Calcium 10.7 mg/dL (8.4-10.2); Carbon Dioxide 27 mmol/L (22-32); Chloride 107 mmol/L (98-107); Estimated Glomerular Filt Rate > 60 mL/min (>60); Globulin 3.1 g/dL (1.7-4.1); Glucose 103 mg/dL (80-110); HEMOLYSIS < 15 (0-50); Potassium 4.3 mmol/L (3.4-5.1); Sodium 139 mmol/L (137-145); Total Protein 7.3 g/dL (6.3-8.2)
== END ==
PROVIDERS: Family Provider Nurse Practitioner; PCP Nurse Practitioner; Referring Provider Internal Medicine Rheumatology; Visit Provider Internal Medicine Rheumatology
DX: Z79.899 Other long term (current) drug therapy (principal); M06.09 Rheumatoid arthritis without rheumatoid factor, multiple sites
CPT/HCPCS: 36415; 80053; 85025

== ENCOUNTER → 2023-02-09 14:30 | Outpatient (CLI) | payer MEDICARE, OTHER, SELFPAY ==
[2023-02-09 15:56] LABS: Add Manual Diff / Slide Review NO; Basophils Absolute Auto 0 /uL (0-100); Basophils Percent Auto 0.6 % (0-2); Eosinophils Absolute Auto 200 /uL (0-450); Eosinophils Percent Auto 2.3 % (2-4); Hematocrit 38.3 % (36-46); Hemoglobin 13.1 g/dL (12.0-16.0); Lymphocytes Absolute Auto 3100 /uL (1100-4500); Lymphocytes Percent Auto 42.7 % (25-40); Mean Corpuscular HGB Conc 34.2 % (30-36); Mean Corpuscular Volume 99.4 fL (80-100); Monocytes Absolute Auto 400 /uL (0-900); Monocytes Percent Auto 5.6 % (3-14); Neutrophils Absolute Auto 3500 /uL (1500-7000); Neutrophils Percent Auto 48.8 % (50-75); Platelet Count 182 X10^3/uL (150-400); Red Blood Cell Count 3.85 X10^6/uL (4.0-5.2); White Blood Cell Count 7.3 X10^3/uL (4.5-11.0)
[2023-02-09 15:58] LABS: Alanine Aminotransferase 22 IU/L (<35); Albumin Globulin Ratio 1.4 (1.0-2.8); Alkaline Phosphatase 79 U/L (38-126); Aspartate Aminotransferase 27 IU/L (14-36); BUN Creatinine Ratio 17.6 (6-22); Bilirubin Total 0.6 mg/dL (0.2-1.3); Blood Urea Nitrogen 15 mg/dL (7-17); Calcium 10.9 mg/dL (8.4-10.2); Carbon Dioxide 27 mmol/L (22-32); Chloride 108 mmol/L (98-107); Estimated Glomerular Filt Rate > 60 mL/min (>60); Globulin 2.8 g/dL (1.7-4.1); Glucose 101 mg/dL (80-110); HEMOLYSIS < 15 (0-50); Potassium 4.8 mmol/L (3.4-5.1); Sodium 140 mmol/L (137-145); Total Protein 6.8 g/dL (6.3-8.2)
== END ==
PROVIDERS: Family Provider Nurse Practitioner; PCP Nurse Practitioner; Referring Provider Internal Medicine Rheumatology; Visit Provider Internal Medicine Rheumatology
DX: M06.09 Rheumatoid arthritis without rheumatoid factor, multiple sites (principal); Z79.899 Other long term (current) drug therapy
CPT/HCPCS: 36415; 80053; 85025

== ENCOUNTER → 2023-05-08 14:29 | Outpatient (CLI) | payer MEDICARE, OTHER, SELFPAY ==
[2023-05-08 15:21] LABS: Add Manual Diff / Slide Review NO; Basophils Absolute Auto 0 /uL (0-100); Basophils Percent Auto 0.6 % (0-2); Eosinophils Absolute Auto 200 /uL (0-450); Eosinophils Percent Auto 2.1 % (2-4); Hematocrit 38.1 % (36-46); Lymphocytes Absolute Auto 2900 /uL (1100-4500); Mean Corpuscular HGB Conc 34.3 % (30-36); Mean Corpuscular Hemoglobin 33.6 PG (26-34); Monocytes Absolute Auto 500 /uL (0-900); Monocytes Percent Auto 6.3 % (3-14); Neutrophils Absolute Auto 4000 /uL (1500-7000); Platelet Count 189 X10^3/uL (150-400); Red Blood Cell Count 3.89 X10^6/uL (4.0-5.2); Red Cell Distribution Width 13.2 % (11.6-14.8); White Blood Cell Count 7.5 X10^3/uL (4.5-11.0)
[2023-05-08 15:42] LABS: Erythrocyte Sedimentation Rate 7 MM/HR (0-20)
[2023-05-08 15:47] LABS: Alanine Aminotransferase 20 IU/L (<35); Albumin 3.9 g/dL (3.5-5.0); Albumin Globulin Ratio 1.3 (1.0-2.8); Alkaline Phosphatase 73 U/L (38-126); Aspartate Aminotransferase 27 IU/L (14-36); BUN Creatinine Ratio 13.6 (6-22); Bilirubin Total 0.6 mg/dL (0.2-1.3); Blood Urea Nitrogen 11 mg/dL (7-17); Calcium 10.2 mg/dL (8.4-10.2); Carbon Dioxide 26 mmol/L (22-32); Chloride 111 mmol/L (98-107); Estimated Glomerular Filt Rate > 60 mL/min (>60); Globulin 2.9 g/dL (1.7-4.1); Glucose 108 mg/dL (80-110); HEMOLYSIS < 15 (0-50); Potassium 4.2 mmol/L (3.4-5.1); Sodium 141 mmol/L (137-145); Total Protein 6.8 g/dL (6.3-8.2)
[2023-05-09 06:49] LABS: C-Reactive Protein Quant 0.6 mg/dL (<1.0)
== END ==
PROVIDERS: Family Provider Nurse Practitioner; PCP Nurse Practitioner; Referring Provider Internal Medicine Rheumatology; Visit Provider Internal Medicine Rheumatology
DX: M06.09 Rheumatoid arthritis without rheumatoid factor, multiple sites (principal); Z79.899 Other long term (current) drug therapy
CPT/HCPCS: 36415; 80053; 85025; 85651; 86140

== ENCOUNTER 2023-09-15 12:39 | Emergency (ER) | payer MEDICARE, OTHER, SELFPAY ==
[2023-09-15] VITALS (16 sets, daily range): BP systolic 117–149; BP diastolic 57–72; PULSE 72–87; RESP 18; TEMP 36.4; O2SAT 95–99; BMI 27.4
--- NOTE | 2023-09-15 16:52 | DI.RAD.S_ITS ---
PROCEDURE: XR CHEST 1V INDICATIONS: chest pain TECHNIQUE: One view of the chest was acquired. COMPARISON: [facility], , CHEST 1 VIEW, 02/03/2017, 0:14. FINDINGS: Surgical changes and devices: None. Lungs and pleura: Lungs are clear. No pleural effusions or pneumothorax. Mediastinum: Mediastinal contours appear normal. Heart size is normal. Bones and chest wall: No suspicious bony lesions. Overlying soft tissues appear unremarkable. Colonic interposition. IMPRESSION: No acute cardiopulmonary abnormality is seen. Colonic interposition between the liver and hemidiaphragm, which may cause right upper quadrant pain. Dictated by: Kumar Ross M.D. on 09/15/2023 at 17:23 Approved by: Kumar Ross M.D. on 09/15/2023 at 17:23
--- NOTE | 2023-09-15 17:10 | EKG_ITS ---
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
[2023-09-15 17:59] LABS: Add Manual Diff / Slide Review NO; Basophils Absolute Auto 100 /uL (0-100); Eosinophils Absolute Auto 0 /uL (0-450); Eosinophils Percent Auto 0.3 % (2-4); Hematocrit 40.8 % (36-46); Hemoglobin 14.2 g/dL (12.0-16.0); Lymphocytes Absolute Auto 1200 /uL (1100-4500); Lymphocytes Percent Auto 12.6 % (25-40); Mean Corpuscular HGB Conc 34.8 % (30-36); Mean Corpuscular Hemoglobin 34.2 PG (26-34); Mean Corpuscular Volume 98.4 fL (80-100); Monocytes Absolute Auto 1000 /uL (0-900); Neutrophils Absolute Auto 7000 /uL (1500-7000); Neutrophils Percent Auto 75.1 % (50-75); Platelet Count 256 X10^3/uL (150-400); Red Blood Cell Count 4.15 X10^6/uL (4.0-5.2); Red Cell Distribution Width 13.6 % (11.6-14.8); White Blood Cell Count 9.3 X10^3/uL (4.5-11.0)
[2023-09-15 18:06] LABS: Prothrombin Time 11.4 SECONDS (9.4-12.5)
--- NOTE | 2023-09-15 18:07 | ED_ITS ---
HPI - Fall General Chief Complaint: Fall Stated Complaint: fall, back injury, LOC ,no blood thinners Time Seen by Provider: 09/15/23 18:06 Source: patient Mode of arrival: Wheelchair History of Present Illness HPI Narrative: 73-year-old female with ground level fall, low back pain, increasing abdominal distention. She reports history of rheumatoid arthritis, had new infusion 1st dose of Simponi on Thursday few days ago, over the weekend had repeated episodes of nausea and vomiting, they thought maybe she had food poisoning from eating salmon, no diarrhea however. She felt weak last night Thursday night, had ground level fall at home, not seen by a medical evaluation, went back to bed, was aware, this morning she has had low back pain increasing through the day, history of previous L4-L5 back surgery. No numbness or weakness to her legs. No incontinence to urine or stool. No bowel movement last couple of days, increasing abdominal distention. Denies previous abdominopelvic surgeries, has had previous colonoscopy unremarkable in the past. No other injuries from fall. Denies head pain, neck pain, upper back pain, chest pain. Denies pain or injury to upper extremities and lower extremities. Related Data Home Medications Medication Instructions Recorded Confirmed alendronate 70 mg tablet (Fosamax) 70 mg PO QWEEK 08/10/18 08/18/23 aspirin 81 mg tablet,delayed 81 mg PO DAILY 08/10/18 08/18/23 release (Adult Low Dose Aspirin) folic acid 1 mg tablet 1 mg PO DAILY #0 tabs 08/10/18 08/18/23 multivitamin (Daily Multi-Vitamin 1 tab PO DAILY 08/10/18 08/18/23 tablet) sulfasalazine 500 mg tablet 500 mg PO TID #0 tabs 08/10/18 08/18/23 (Azulfidine) golimumab 12.5 mg/mL intravenous 100 mg IV Q8W 08/18/23 08/18/23 solution (Simponi ARIA) Previous Rx's Medication Instructions Recorded hydrochlorothiazide 12.5 mg capsule See Rx Instructions .Route 04/02/22 .COMPLEX #90 caps gabapentin 300 mg capsule 300 mg PO TID #270 caps 04/20/23 amlodipine 5 mg tablet 5 mg PO DAILY #90 tabs 08/18/23 Allergies Allergy/AdvReac Type Severity Reaction Status Date / Time codeine [CODEINE] Allergy Intermediate Rash Verified 08/18/23 14:31 Penicillins [PENICILLINS] Allergy Intermediate Rash Verified 08/18/23 14:31 prednisone AdvReac Severe Confusion Verified 08/18/23 14:31 tramadol AdvReac Severe Confusion Verified 08/18/23 14:31 lisinopril AdvReac Intermediate Cough Verified 08/18/23 14:31 celecoxib [From Celebrex] AdvReac Unknown Verified 08/18/23 14:31 Review of Systems Review of Systems Narrative: per HPI Patient History Medical History (Updated 09/16/23 @ 03:10 by Agus Wilkerson MD) Hypertension Elevated LDL cholesterol level 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 Mixed hyperlipidemia Breast cancer screening Serum calcium elevated Post traumatic stress disorder (PTSD) (~1989) Osteoporosis (~2009) History of recurrent ear infection (~1950) ADD (attention deficit disorder) Spondylarthritis Depression DJD (degenerative joint disease) Arthritis (~2015) Back pain (~2009) Surgical History (Updated 08/21/23 @ 15:25 by MICHELLE Sanchez) Anesthesia History of thumb surgery History of section History of carpal tunnel release (~2005) Hx of laminectomy S/P total knee arthroplasty (~01/2016) Hx of total knee arthroplasty (~05/2017) Family History Father Mental health problem Mother Mental health problem Social History Smoking Status: Former smoker Smoking Status: Former smoker Substance Use Type: does not use Exam Narrative Exam Narrative: GENERAL: Well-developed patient, in mild distress. HEAD: Atraumatic. Normocephalic. EYES: Pupils equal round and reactive. Extraocular motions intact. No scleral icterus. No injection or drainage. ENT: Nose without bleeding, purulent drainage. Throat without erythema, tonsillar hypertrophy or exudate. Airway patent. NECK: Trachea midline. Non tender CARDIOVASCULAR: Regular rate and rhythm without murmurs, gallops, or rubs. RESPIRATORY: Clear to auscultation. Breath sounds equal bilaterally. No wheezes, rales, or rhonchi. GASTROINTESTINAL: Abdomen soft, non-tender, some distension, normal bowel tones without obvious rushes or tinkles. No abnormal pulsatile masses. EXTREMITIES: No edema or joint tenderness. BACK: Nontender without deformity or crepitance. No flank tenderness. No gross lesions or bruises to the back, no erythema. No midline tenderness. NEURO: AOx3. Nonfocal motor exam. Straight leg both sides a proximally 45?, with no thigh leg pain or low back pain. SKIN: No rash or erythema of visible areas Initial Vital Signs Initial Vital Signs: Vital Signs Temperature 97.6 F 09/15/23 12:44 Pulse Rate 87 09/15/23 12:44 Respiratory Rate 18 09/15/23 12:44 Blood Pressure 117/64 09/15/23 12:44 Pulse Oximetry 99 09/15/23 12:44 Oxygen Delivery Method Room Air 09/15/23 12:44 Course Orders Ordered: Discontinued Medications Hydromorphone HCl (Hydromorphone 0.5 Mg Inj) 0.5 mg IV NOW ONE Stop: 09/15/23 19:21 Last Admin: 09/15/23 19:31 Dose: 0.5 mg Documented By: REMY Hydromorphone HCl (Hydromorphone 0.5 Mg Inj) 0.5 mg IV NOW ONE Stop: 09/16/23 01:42 Last Admin: 09/16/23 01:46 Dose: 0.5 mg Documented By: REMY Sodium Chloride (Normal Saline 0.9%) 1,000 mls @ 1,000 mls/hr IV BOLUS ONE Stop: 09/15/23 18:54 Last Infusion: 09/15/23 19:30 Dose: Infused Documented By: Admin: 09/15/23 18:14 Dose: 1,000 mls/hr Documented By: JACINTO Sodium Chloride (Normal Saline 0.9%) 1,000 mls @ 1,000 mls/hr IV BOLUS ONE Stop: 09/15/23 20:13 Last Infusion: 09/15/23 21:30 Dose: Infused Documented By: Admin: 09/15/23 19:31 Dose: 1,000 mls/hr Documented By: REMY Sodium Chloride (Normal Saline 0.9%) 1,000 mls @ 1,000 mls/hr IV BOLUS ONE Stop: 09/16/23 01:11 Last Infusion: 09/16/23 00:36 Dose: Infused Documented By: Admin: 09/15/23 21:30 Dose: 1,000 mls/hr Documented By: REMY Ondansetron HCl (Ondansetron 4 Mg/2 Ml Inj) 4 mg IV NOW ONE Stop: 09/15/23 19:25 Last Admin: 09/15/23 19:32 Dose: 4 mg Documented By: REMY Vital Signs Vital signs: Vital Signs - 8 hr 09/15/23 20:00 09/15/23 20:30 09/15/23 21:00 Pulse Rate 85 83 82 Respiratory Rate 18 18 Pulse Oximetry 98 98 95 09/15/23 21:30 09/15/23 22:00 09/15/23 22:30 Pulse Rate 77 76 74 Respiratory Rate Pulse Oximetry 95 96 95 09/15/23 23:00 09/15/23 23:30 09/16/23 00:00 Pulse Rate 72 76 76 Respiratory Rate Pulse Oximetry 96 95 95 09/16/23 00:30 09/16/23 01:00 Pulse Rate 73 78 Respiratory Rate 18 Pulse Oximetry 94 94 MDM - Fall Lab Data Attestation: I reviewed the patient's lab results. 09/15/23 17:49 09/15/23 17:49 Labs: Lab Results 09/15/23 09/15/23 09/16/23 Range/Units 17:49 18:56 04:10 WBC 9.3 (4.5-11.0) X10^3/uL RBC 4.15 (4.0-5.2) X10^6/uL Hgb 14.2 (12.0-16.0) g/dL Hct 40.8 (36-46) % MCV 98.4 (80-100) fL MCH 34.2 H (26-34) PG MCHC 34.8 (30-36) % RDW 13.6 (11.6-14.8) % Plt Count 256 (150-400) X10^3/uL Neut % (Auto) 75.1 H (50-75) % Lymph % (Auto) 12.6 L (25-40) % [place] % (Auto) 11.0 (3-14) % Eos % (Auto) 0.3 L (2-4) % Baso % (Auto) 1.0 (0-2) % Neut # (Auto) 7000 (2004-5255) /uL Lymph # (Auto) 1200 (1289-5167) /uL [place] # (Auto) 1000 H (0-900) /uL Eos # (Auto) 0 (0-450) /uL Baso # (Auto) 100 (0-100) /uL PT 11.4 (9.4-12.5) SECONDS INR 1.0 (0.9-1.3) APTT 28 (25.1-36.5) SECONDS Sodium 135 L (137-145) mmol/L Potassium 4.5 (3.4-5.1) mmol/L Chloride 104 (98-107) mmol/L Carbon Dioxide 20 L (22-32) mmol/L BUN 22 H (7-17) mg/dL Creatinine 1.28 H (0.52-1.04) mg/dL Estimated GFR 44 L (>60) mL/min BUN/Creatinine Ratio 17.2 (6-22) Glucose 94 (80-110) mg/dL Calcium 10.0 (8.4-10.2) mg/dL Magnesium 2.2 (1.6-2.3) mg/dL Total Bilirubin 0.8 (0.2-1.3) mg/dL AST 42 H (14-36) IU/L ALT 21 (<35) IU/L Alkaline Phosphatase 72 (38-126) U/L Total Creatine Kinase 51 (30-135) U/L Troponin I < 0.012 (0.01-0.034) ng/mL NT-Pro-B Natriuret Pep 205 H (<125) pg/mL Total Protein 6.8 (6.3-8.2) g/dL Albumin 3.8 (3.5-5.0) g/dL Globulin 3.0 (1.7-4.1) g/dL Albumin/Globulin Ratio 1.3 (1.0-2.8) Lipase 58 (23-300) U/L Carcinoembryonic Ag 1.4 (0.1-3.0) ng/mL CA 125 Antigen 352 H (0-35) U/mL Urine Color Yellow Urine Appearance Clear Urine pH 5.5 (4.5-8.0) Ur Specific [place] >=1.030 H (1.000-1.035) Urine Protein 1+ H (Negative) Urine Glucose (UA) Negative (Negative) g/dL Urine Ketones 2+ H (NEGATIVE) Urine Occult Blood Negative (Negative) Urine Nitrate Negative (Negative) Urine Bilirubin 1+ H (NEGATIVE) Ur Bilirubin Confirm Negative (Negative) Urine Urobilinogen 1.0 (0.2) E.U./dL Ur Leukocyte Esterase Negative (NEGATIVE) Urine RBC 0-1/hpf (0-5/HPF) Urine WBC 0-1/hpf (0-5/HPF) Ur Squamous Epith Cells 5-10 /hpf H (0-5/HPF) Calcium Oxalate Crystal Few H Urine Bacteria Few (2-10) H (None) Urine Mucus 1+ H (Negative) Ur Culture Indicated? Cult not indicated Vol Urine Centrifuged 10ml (spun) Imaging Data Chest x-ray: Radiologist's Impression: [address] [address] XRay Report Signed Patient: Chinyere Ortega MR#: [id number] : 1950 Acct:[id number] Age/Sex: 73 / F Date of Service: 09/15/23 Loc: ED Accession Number: [id number] Procedure: XR chest 1V Ordering Provider: Babs Hernandez MD PROCEDURE: XR CHEST 1V INDICATIONS: chest pain TECHNIQUE: One view of the chest was acquired. COMPARISON: [facility], , CHEST 1 VIEW, 02/03/2017, 0:14. FINDINGS: Surgical changes and devices: None. Lungs and pleura: Lungs are clear. No pleural effusions or pneumothorax. Mediastinum: Mediastinal contours appear normal. Heart size is normal. Bones and chest wall: No suspicious bony lesions. Overlying soft tissues appear unremarkable. Colonic interposition. IMPRESSION: No acute cardiopulmonary abnormality is seen. Colonic interposition between the liver and hemidiaphragm, which may cause right upper quadrant pain. Dictated by: Kumar Ross M.D. on 09/15/2023 at 17:23 Approved by: Kumar Ross M.D. on 09/15/2023 at 17:[address] [address] XRay Report Signed Patient: Chinyere Ortega MR#: [id number] : 1950 Acct:[id number] Age/Sex: 73 / F Date of Service: 09/15/23 Loc: ED Accession Number: [id number] Procedure: XR chest 1V Ordering Provider: Babs Hernandez MD PROCEDURE: XR CHEST 1V INDICATIONS: chest pain TECHNIQUE: One view of the chest was acquired. COMPARISON: [facility], , CHEST 1 VIEW, 02/03/2017, 0:14. FINDINGS: Surgical changes and devices: None. Lungs and pleura: Lungs are clear. No pleural effusions or pneumothorax. Mediastinum: Mediastinal contours appear normal. Heart size is normal. Bones and chest wall: No suspicious bony lesions. Overlying soft tissues appear unremarkable. Colonic interposition. IMPRESSION: No acute cardiopulmonary abnormality is seen. Colonic interposition between the liver and hemidiaphragm, which may cause right upper quadrant pain. Dictated by: Kumar Ross M.D. on 09/15/2023 at 17:23 Approved by: Kumar Ross M.D. on 09/15/2023 at 17:23 CT scan - abdomen/pelvis: Radiologist's Impression: [place] [address] CT Scan Report Signed Patient: Chinyere Ortega MR#: [id number] : 1950 Acct:[id number] Age/Sex: 73 / F Date of Service: 09/15/23 Loc: ED Accession Number: [id number] Procedure: CT abdomen pelvis w con Ordering Provider: Agus Wilkerson MD PROCEDURE: CT ABDOMEN PELVIS W CON INDICATIONS: abd pain, low back pain; Lsp bone windows too plz TECHNIQUE: After the administration of intravenous contrast, axial sections acquired from the lung bases to the pubic symphysis. Coronal and sagittal reformats were performed. For radiation dose reduction, the following was used: automated exposure control, adjustment of mA and/or kV according to patient size. COMPARISON: None. FINDINGS: Image quality: Diagnostic. Lower Chest: Small right pleural effusion with compressive atelectasis. Heart size is normal. No pericardial effusion. ABDOMEN: Liver: No solid mass. Gallbladder: No radiopaque gallstones or wall thickening. Biliary ducts: No biliary dilation. Pancreas: No ductal dilation. Spleen: Size is within normal limits. Adrenal Glands: No adrenal nodules. Kidneys and Ureters: Right kidney demonstrates no hydronephrosis or solid mass lesion. Right ureter is normal in course and caliber. There is moderate left hydronephrosis. Mild hydroureter of the proximal left ureter. There is a ill-defined heterogeneous mass likely representing retroperitoneal adenopathy adjacent to the left side of the aorta measuring approximately 4.0 x 5.6 cm in axial cross-sectional dimension (33/series 2). Additional adenopathy noted adjacent to the origin of the left renal artery measuring approximately 2 cm (28/series 2). There is a heterogeneously enhancing multi lobulated mass in the lower abdomen/pelvis measuring approximately 10.4 x 8.9 cm (59/series 2). This appears to possibly be adnexal in etiology. Similar, heterogeneously enhancing mass noted in the right lower abdomen/pelvis measuring 6.8 x 6.7 cm. This is seen on image 61/series 2. A few additional retroperitoneal lymph nodes are visualized in the lower abdomen and pelvis. Stomach and Bowel: Normal colonic caliber, without significant wall thickening. Normal appendix. Peritoneum: Small volume ascites. No free air. Ventral Wall: No significant ventral hernia. Abdominal Nodes: Multiple prominent and enlarged retroperitoneal lymph nodes as described above. Vessels: Aorta and inferior vena cava are normal in size. PELVIS: Pelvic Organs: Heterogeneous, and enlarged uterus. Bladder: No bladder wall thickening, accounting for underdistention. Pelvic Nodes: No pelvic sidewall adenopathy. Miscellaneous: No inguinal hernias are seen. Bones: No aggressive osseous abnormality. Visualized osseous structures appear intact without acute fracture or focal destructive lesion. No acute compression fractures of the imaged spine. IMPRESSION: 1. Left hydronephrosis and proximal left hydroureter secondary mass effect by multiple large retroperitoneal masses and large lower abdomen/pelvic masses described above. 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 2. Small right pleural effusion with compressive atelectasis. Dictated by: Tony Norton M.D. on 09/15/2023 at 20:53 Approved by: Tony Norton M.D. on 09/15/2023 at 21:01 ECG Data Attestation: I personally reviewed and interpreted this ECG as follows: Interpretation: 1710, normal sinus rhythm with rate of 79, no obvious ST segment elevation or depression changes. T-wave inversion lead 3, upright in other contiguous inferior leads 2 and F. CA 150, QRS 82, QTC 444. 2041, normal sinus rhythm with rate of 82, no obvious ST segment elevation or depression changes. T-wave flat/inversion lead 3, upright other inferior leads. No significant change from prior study this visit. CA 158, QRS 86, QTC 462. MDM Narrative Medical decision making narrative: 73-year-old female with history of RA, new Simponi infusion recent, also some nausea and vomiting after eating salmon, possible food poisoning, felt weak last night, had ground level fall last night, history of prior low lumbar L4 surgery, increasing pain to the lumbar spine, also with abdominal distention, diffuse abdominal discomfort. DDX nausea and vomiting could include ACS, head injury, reaction from recent new RA infusion medication, food poisoning, bowel obstruction, UTI, other. Suspect dehydration by multiple episodes of emesis, given IV fluids, feels better. EKG without obvious ischemic changes, troponin negative. Screening labs unremarkable including electrolytes. Still nauseated. Still has abdominal distention and low back pain increasing. Straight leg raise 45? both legs with fair effort, no thigh pain or back pain with effort. IV Dilaudid/Zofran. We will obtain CT abdomen and pelvis with lumbar spine bone windows. Screening labs unremarkable. CT abdomen pelvis study ordered. CT abdomen and pelvis showed no acute bony spine or other acute traumatic chagnes, did however show multiple large pelvic masses with left hydroureter and left hydronephrosis, no bowel obstruction changes, largest pelvic mass a proximally 10 cm diameter, with retroperitoneal lymphadenopathy. Suspicious for neoplasia, possibly ovarian/uterine etiology. Consider gynecology oncology consult, none available here, patient requests [facility] Phone consultation with [facility] gyne[facility]-oncology Dr. Diaz, who can see patient as an outpatient in their outreach [facility]. His office number in [place] provided to the patient, . Patient information name and date of was also provided so they contact her. He requests further workup to include cancer markers (CA 125, CEA, CA 19- 9). Those additional blood studies were ordered. Copy of CT report given to patient with explanation. Improved symptoms and after IV fluids, home with , follow-up with GynOnc as above Critical Care Time Critical Care Time Critical Care Time: Yes Total Critical Care Time: 31 Attestation: The high probability of a clinically significant, sudden or life threatening deterioration of the [abdominopelvic, genitourinary, gynecological] system(s) required my full and direct attention, intervention and personal management. The aggregate critical care time was [31] minutes. This time is in addition to time spent performing reported procedures but includes the following: [x] Data Review and interpretation [x] Patient assessment and monitoring of vital signs [x] Documentation [x] Medication orders and management Discharge Plan Departure Patient Disposition: Home Clinical Impression: Nausea & vomiting, Dehydration, Low back pain, Abdominal distention, Fall from ground level, Pelvic mass in female, Ureteral obstruction, left Activity Restrictions/Additional Instructions: Recent fall with low back pain, nausea and vomiting after new/recent rheumatoid arthritis injection medication Simponi. Unclear if it is related to the rheumatoid arthritis medication. Dehydration suspected. IV fluids given. Laboratory studies pretty unremarkable. No obvious urinary tract infection. Because of your lumbar surgery history and low back pain, also with a sensation of abdominal bloating, we imaged abdomen and pelvis with CT including bony windows. There is no bony abnormality that looked acute. However unfortunately we did find pelvic masses measuring as large as 10 cm, and some smaller masses as well, that also seemed to be affecting flow to the left kidney along the left ureter. There is no colonic bowel obstruction at this time. Case discussed with gynecology floral department specialist at [facility] Dr. Diaz, they have an office in [place] which he attends, phone [phone]. Your name and date of and contact information were relayed, with phone number as per triage information in the chart. Their office should be contacting you. But he also suggested you could contact his office later today during open hours, for close follow up appointment with him. Further workup will be done as an outpatient for now. Follow up with Gynecology Oncology as above. Unclear if your rheumatology injection medication was causing any nausea or vomiting, perhaps prudent to stop it for now pending further workup of the pelvic masses. Return to this/nearest emergency department for any change worsening symptoms or any concerns prior Prescriptions: No Action folic acid 1 mg tablet 1 mg PO DAILY Qty: 0 sulfasalazine [Azulfidine] 500 mg tablet 500 mg PO TID Qty: 0 hydrochlorothiazide 12.5 mg capsule See Rx Instructions .ROUTE .COMPLEX Qty: 90 1RF Dose Instruction: take 1 capsule by mouth every morning FOR HYPERTENSION BP GOAL < 140/90 CONSISTENTLY Rx Instructions: take 1 capsule by mouth every morning FOR HYPERTENSION BP GOAL < 140/90 CONSISTENTLY gabapentin 300 mg capsule 300 mg PO TID Qty: 270 0RF Rx Instructions: one capsule in the morning and two capsules at night aspirin [Adult Low Dose Aspirin] 81 mg tablet,delayed release (DR/EC) 81 mg PO DAILY alendronate [Fosamax] 70 mg tablet 70 mg PO QWEEK multivitamin [Daily Multi-Vitamin] tablet 1 tab PO DAILY Simponi ARIA 12.5 mg/mL solution 100 mg IV Q8W Rx Instructions: administer over 30 mins amlodipine 5 mg tablet 5 mg PO DAILY Qty: 90 3RF Referrals: Danika Gaspar ARNP [Primary Care Provider] - Stand Alone Forms: Patient Portal/API
[2023-09-15 18:09] LABS: PTT Partial Thromboplastin Tim 28 SECONDS (25.1-36.5)
[2023-09-15 18:12] LABS: Alanine Aminotransferase 21 IU/L (<35); Albumin 3.8 g/dL (3.5-5.0); Albumin Globulin Ratio 1.3 (1.0-2.8); Alkaline Phosphatase 72 U/L (38-126); Aspartate Aminotransferase 42 IU/L (14-36); BUN Creatinine Ratio 17.2 (6-22); Bilirubin Total 0.8 mg/dL (0.2-1.3); Blood Urea Nitrogen 22 mg/dL (7-17); Carbon Dioxide 20 mmol/L (22-32); Chloride 104 mmol/L (98-107); Creatine Kinase 51 U/L (30-135); Estimated Glomerular Filt Rate 44 mL/min (>60); Glucose 94 mg/dL (80-110); HEMOLYSIS < 15 (0-50); Lipase 58 U/L (23-300); Magnesium 2.2 mg/dL (1.6-2.3); Potassium 4.5 mmol/L (3.4-5.1); Sodium 135 mmol/L (137-145); Total Protein 6.8 g/dL (6.3-8.2)
[2023-09-15] MEDS: SODIUM CHLORIDE 0.9% 1,000 ML 1000 ML IV ×3 (18:14→21:30)
[2023-09-15 18:23] LABS: NT-proBNP (BNP-Adult 18+) 205 pg/mL (<125); Troponin I < 0.012 ng/mL (0.01-0.034)
--- NOTE | 2023-09-15 19:13 | DI.CT.S_ITS ---
PROCEDURE: CT ABDOMEN PELVIS W CON INDICATIONS: abd pain, low back pain; Lsp bone windows too plz TECHNIQUE: After the administration of intravenous contrast, axial sections acquired from the lung bases to the pubic symphysis. Coronal and sagittal reformats were performed. For radiation dose reduction, the following was used: automated exposure control, adjustment of mA and/or kV according to patient size. COMPARISON: None. FINDINGS: Image quality: Diagnostic. Lower Chest: Small right pleural effusion with compressive atelectasis. Heart size is normal. No pericardial effusion. ABDOMEN: Liver: No solid mass. Gallbladder: No radiopaque gallstones or wall thickening. Biliary ducts: No biliary dilation. Pancreas: No ductal dilation. Spleen: Size is within normal limits. Adrenal Glands: No adrenal nodules. Kidneys and Ureters: Right kidney demonstrates no hydronephrosis or solid mass lesion. Right ureter is normal in course and caliber. There is moderate left hydronephrosis. Mild hydroureter of the proximal left ureter. There is a ill-defined heterogeneous mass likely representing retroperitoneal adenopathy adjacent to the left side of the aorta measuring approximately 4.0 x 5.6 cm in axial cross-sectional dimension (33/series 2). Additional adenopathy noted adjacent to the origin of the left renal artery measuring approximately 2 cm (28/series 2). There is a heterogeneously enhancing multi lobulated mass in the lower abdomen/pelvis measuring approximately 10.4 x 8.9 cm (59/series 2). This appears to possibly be adnexal in etiology. Similar, heterogeneously enhancing mass noted in the right lower abdomen/pelvis measuring 6.8 x 6.7 cm. This is seen on image 61/series 2. A few additional retroperitoneal lymph nodes are visualized in the lower abdomen and pelvis. Stomach and Bowel: Normal colonic caliber, without significant wall thickening. Normal appendix. Peritoneum: Small volume ascites. No free air. Ventral Wall: No significant ventral hernia. Abdominal Nodes: Multiple prominent and enlarged retroperitoneal lymph nodes as described above. Vessels: Aorta and inferior vena cava are normal in size. PELVIS: Pelvic Organs: Heterogeneous, and enlarged uterus. Bladder: No bladder wall thickening, accounting for underdistention. Pelvic Nodes: No pelvic sidewall adenopathy. Miscellaneous: No inguinal hernias are seen. Bones: No aggressive osseous abnormality. Visualized osseous structures appear intact without acute fracture or focal destructive lesion. No acute compression fractures of the imaged spine. IMPRESSION: 1. Left hydronephrosis and proximal left hydroureter secondary mass effect by multiple large retroperitoneal masses and large lower abdomen/pelvic masses described above. 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 2. Small right pleural effusion with compressive atelectasis. Dictated by: Tony Norton M.D. on 09/15/2023 at 20:53 Approved by: Tony Norton M.D. on 09/15/2023 at 21:01
[2023-09-15 19:19] LABS: Appearance Urine UA CLEAR; Bilirubin Urine UA 1+ (NEGATIVE); Color Urine UA YELLOW; Glucose Urine UA NEGATIVE (Negative); Ketones Urine UA 2+ (NEGATIVE); Leukocyte Esterase Urine UA NEGATIVE (NEGATIVE); Nitrite Urine UA NEGATIVE (Negative); Occult Blood Urine UA NEGATIVE (Negative); Protein Urine UA 1+ (Negative); Specific Gravity Urine UA >=1.030 (1.000-1.035); pH Urine UA 5.5 (4.5-8.0)
--- NOTE | 2023-09-15 19:20 | EKG_ITS ---
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
--- NOTE | 2023-09-15 19:30 | PC.NURSE ---
pt lying on stretcher states she is still feeling weak after the first liter of fluids, pt is aao x 3 resp even and unlabored, at bedside, call burk in reach, pt medicated for pain and 2nd liter NS hung to infuse
[2023-09-15] MEDS: HYDROMORPHONE 0.5 MG INJ IV (19:31)
[2023-09-15] MEDS: ONDANSETRON 4 MG/2 ML INJ IV (19:32)
[2023-09-15 19:41] LABS: Bacteria Urine Few (2-10); Calcium Oxalate Crystals Urine Few; Culture Indicated Urine Cult Not Indicated; Ictotest Urine Negative (Negative); Mucus Urine 1+ (Negative); RBC Urine 0-1/HPF (0-5/HPF); Squamous Epithelial Cell Urine 5-10 /HPF (0-5/HPF); Urine Volume 10mL (spun); WBC Urine 0-1/HPF (0-5/HPF)
[2023-09-16] VITALS: PULSE 76; O2SAT 95
[2023-09-16 00:30] VITALS: PULSE 73; O2SAT 94
[2023-09-16 01:00] VITALS: PULSE 78; RESP 18; O2SAT 94
[2023-09-16] MEDS: HYDROMORPHONE 0.5 MG INJ IV (01:46)
[2023-09-16 04:23] VITALS: BP 136/74; PULSE 76; RESP 18; O2SAT 100
[2023-09-16 05:06] LABS: Cancer Antigen 125 352 U/mL (0-35); Carcinoembryonic Antigen 1.4 ng/mL (0.1-3.0)
[2023-09-17 16:09] LABS: Cancer (Carbohydrate) Ag 19-9 5 U/mL (0-35)
== END 2023-09-16 04:24 | disposition home or self-care (01) ==
PROVIDERS: Emergency Medicine; Emergency Provider Emergency Medicine; Family Provider Nurse Practitioner; PCP Nurse Practitioner
DX: N13.5 Crossing vessel and stricture of ureter without hydronephrosis (principal); R14.0 Abdominal distension (gaseous); M54.50 Low back pain, unspecified; R07.9 Chest pain, unspecified; R11.2 Nausea with vomiting, unspecified; E86.0 Dehydration; W18.30XA Fall on same level, unspecified, initial encounter
CPT/HCPCS: 36415; 71045; 74177; 80053; 81001; 82378; 82550; 83690; 83735; 83880; 84484; 85025; 85610; 85730; 86301; 86304; 93005; 96361; 96374; 96375; 96376; 99284; 99285; J1170; J2405; Q9967

== ENCOUNTER 2023-09-18 15:59 | Emergency (ER) | payer MEDICARE, OTHER, SELFPAY ==
[2023-09-18] VITALS (18 sets, daily range): BP systolic 131–153; BP diastolic 61–74; PULSE 80–95; RESP 16–45; TEMP 37.6; O2SAT 92–97; BMI 27.4
--- NOTE | 2023-09-18 17:39 | EKG_ITS ---
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
[2023-09-18] MEDS: HYDROMORPHONE 1 MG INJ IV (17:56)
[2023-09-18] MEDS: ONDANSETRON 4 MG/2 ML INJ IV (17:56)
[2023-09-18 18:00] LABS: Add Manual Diff / Slide Review NO; Basophils Absolute Auto 100 /uL (0-100); Basophils Percent Auto 0.7 % (0-2); Eosinophils Absolute Auto 0 /uL (0-450); Eosinophils Percent Auto 0.2 % (2-4); Hematocrit 37.6 % (36-46); Lymphocytes Absolute Auto 1400 /uL (1100-4500); Lymphocytes Percent Auto 13.3 % (25-40); Mean Corpuscular HGB Conc 34.7 % (30-36); Mean Corpuscular Hemoglobin 33.7 PG (26-34); Mean Corpuscular Volume 97.3 fL (80-100); Monocytes Absolute Auto 1400 /uL (0-900); Monocytes Percent Auto 13.1 % (3-14); Neutrophils Absolute Auto 7600 /uL (1500-7000); Neutrophils Percent Auto 72.7 % (50-75); Platelet Count 225 X10^3/uL (150-400); Red Blood Cell Count 3.86 X10^6/uL (4.0-5.2); Red Cell Distribution Width 13.4 % (11.6-14.8); White Blood Cell Count 10.5 X10^3/uL (4.5-11.0)
--- NOTE | 2023-09-18 18:05 | DI.US.S_ITS ---
PROCEDURE: US PELVIC COMPLETE INDICATIONS: pelvic masses seen in CT last week TECHNIQUE: Real-time scanning was performed of the pelvic organs, with image documentation. Additional endovaginal scanning was necessary due to incomplete visualization of the adnexal and endometrial structures by transabdominal scanning. COMPARISON: [facility], CT, CT ABDOMEN PELVIS W CON, 09/15/2023, 19:39. FINDINGS: Uterus: Uterus is anteverted and normal in size at 10.0 x 5.5 x 8.6 cm. The myometrium is heterogeneous. The endometrium measures 7 mm combined thickness. Ovaries: The ovaries are not seen. Masses within the pelvis measuring 13.1 x 6.8 x 7.8 cm in the left lower quadrant and 10.7 x 6.1 x 7.8 cm in the right lower quadrant. These are of uncertain etiology. Other: No pathologic free abdominal or pelvic fluid. IMPRESSION: Redemonstration of large pelvic masses. Findings are concerning for malignancy, possibly gynecologic in origin. We strive to produce accurate, complete, and clear reports of imaging services. To assist us in improving patient care, this report was composed using standard report templates and voice recognition software. Therefore, it may contain abnormal punctuation, insertions and/or omissions. Occasional wrong-word or sound-alike substitutions may occur. Though we review the report and make efforts to correct it, we do recommend that the report be read carefully in proper context to recognize any text inaccuracies. Dictated by: Topher Adame M.D. on 09/18/2023 at 19:04 Approved by: Topher Adame M.D. on 09/18/2023 at 19:06
[2023-09-18 18:11] LABS: Alanine Aminotransferase 20 IU/L (<35); Albumin 3.3 g/dL (3.5-5.0); Alkaline Phosphatase 70 U/L (38-126); Aspartate Aminotransferase 55 IU/L (14-36); BUN Creatinine Ratio 16.1 (6-22); Bilirubin Total 0.6 mg/dL (0.2-1.3); Blood Urea Nitrogen 18 mg/dL (7-17); Calcium 9.7 mg/dL (8.4-10.2); Carbon Dioxide 21 mmol/L (22-32); Chloride 105 mmol/L (98-107); Estimated Glomerular Filt Rate 52 mL/min (>60); Globulin 3.2 g/dL (1.7-4.1); Glucose 93 mg/dL (80-110); HEMOLYSIS 17 (0-50); Lipase 48 U/L (23-300); Sodium 134 mmol/L (137-145); Total Protein 6.5 g/dL (6.3-8.2)
--- NOTE | 2023-09-18 18:47 | ED_ITS ---
HPI - General Adult General Chief complaint: Abdominal Pain Stated complaint: N/stomach distended/looks dry/sent by [facility] Time Seen by Provider: 09/18/23 16:55 Source: patient Mode of arrival: Wheelchair History of Present Illness HPI narrative: Patient is a 73-year-old female who was seen here in the emergency department a couple days ago for a fall and weakness. Had an extensive workup to include a CT scan of her pelvis which showed large masses throughout the abdomen and lymphadenopathy which is concerning for malignancy. 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 According to the note during that visit a Gyne oncologist at [facility] was contacted. There was discussion about follow-up. Patient states that they have contacted that provider however they were trying to have records sent and there is not a follow-up already scheduled. She returns to the emergency department today because of continued abdominal pain. She feels like her abdomen is distended. She has not had much to eat or drink over the past couple days. Is generally feeling weak not feeling very well. Related Data Home Medications Medication Instructions Recorded Confirmed alendronate 70 mg tablet (Fosamax) 70 mg PO QWEEK 08/10/18 08/18/23 aspirin 81 mg tablet,delayed 81 mg PO DAILY 08/10/18 08/18/23 release (Adult Low Dose Aspirin) folic acid 1 mg tablet 1 mg PO DAILY #0 tabs 08/10/18 08/18/23 multivitamin (Daily Multi-Vitamin 1 tab PO DAILY 08/10/18 08/18/23 tablet) sulfasalazine 500 mg tablet 500 mg PO TID #0 tabs 08/10/18 08/18/23 (Azulfidine) golimumab 12.5 mg/mL intravenous 100 mg IV Q8W 08/18/23 08/18/23 solution (Simponi ARIA) Previous Rx's Medication Instructions Recorded hydrochlorothiazide 12.5 mg capsule See Rx Instructions .Route 04/02/22 .COMPLEX #90 caps gabapentin 300 mg capsule 300 mg PO TID #270 caps 04/20/23 amlodipine 5 mg tablet 5 mg PO DAILY #90 tabs 08/18/23 hydrocodone 5 mg-acetaminophen 325 1 tab PO Q6H PRN pain #14 tabs 09/18/23 mg tablet ondansetron 4 mg disintegrating 4 mg PO Q6H PRN nausea and 09/18/23 tablet vomiting #14 tabs Allergies Allergy/AdvReac Type Severity Reaction Status Date / Time codeine [CODEINE] Allergy Intermediate Rash Verified 09/18/23 16:12 Penicillins [PENICILLINS] Allergy Intermediate Rash Verified 09/18/23 16:12 prednisone AdvReac Severe Confusion Verified 09/18/23 16:12 tramadol AdvReac Severe Confusion Verified 09/18/23 16:12 lisinopril AdvReac Intermediate Cough Verified 09/18/23 16:12 celecoxib [From Celebrex] AdvReac Unknown Verified 09/18/23 16:12 Review of Systems Review of Systems ROS Unobtainable: All systems reviewed & are unremarkable except as noted in HPI and below Patient History Medical History Hypertension Elevated LDL cholesterol level 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 Mixed hyperlipidemia Breast cancer screening Serum calcium elevated Post traumatic stress disorder (PTSD) (~1989) Osteoporosis (~2009) History of recurrent ear infection (~1950) ADD (attention deficit disorder) Spondylarthritis Depression DJD (degenerative joint disease) Arthritis (~2015) Back pain (~2009) Surgical History (Updated 08/21/23 @ 15:25 by MICHELLE Sanchez) Anesthesia History of thumb surgery History of section History of carpal tunnel release (~2005) Hx of laminectomy S/P total knee arthroplasty (~01/2016) Hx of total knee arthroplasty (~05/2017) Family History Father Mental health problem Mother Mental health problem Social History Smoking Status: Former smoker Smoking Status: Former smoker Substance Use Type: does not use Exam Initial Vital Signs Initial Vital Signs: Vital Signs Temperature 99.6 F 09/18/23 16:07 Pulse Rate 85 09/18/23 16:07 Respiratory Rate 16 09/18/23 16:07 Blood Pressure 131/61 09/18/23 16:07 Pulse Oximetry 97 09/18/23 16:07 Oxygen Delivery Method Room Air 09/18/23 16:07 Const General: cooperative, comfortable and No ill appearing HENMT Head: normal to inspection and normocephalic Resp Effort & Inspection: normal respiratory effort Cardio Rate: regular rate GI Palpation: No guarding and No rigid Neuro General: patient alert, patient awake, patient oriented x3 and moves all extremities Course Orders Ordered: ED Orders 09/18/23 17:39 EKG-12 Lead Stat 09/18/23 17:52 Complete Blood Count AUTO DIFF Stat Comprehensive Metabolic Panel Stat Lipase Stat 09/18/23 18:05 US pelvic complete Stat 09/18/23 18:48 CT chest w con Stat CT head/brain wo con Stat 09/18/23 20:58 Urine Microscopic Stat Discontinued Medications Hydrocodone Bitart/Acetaminophen (Hydrocodone/Acet 5/325 Prepack) 1 bottle MISC DIRECTED ONE Stop: 09/18/23 21:21 Last Admin: 09/18/23 22:40 Dose: 1 bottle Documented By: LEANDRO Al Hydrox/Mg Hydrox/Simethicone 20 ml/ Lidocaine HCl 15 ml 0 ml PO NOW ONE Stop: 09/18/23 21:38 Last Admin: 09/18/23 21:41 Dose: 35 ml Documented By: LEANDRO Hydromorphone HCl (Hydromorphone 1 Mg Inj) 1 mg IV NOW ONE Stop: 09/18/23 17:41 Last Admin: 09/18/23 17:56 Dose: 1 mg Documented By: VIRIDIANA Sodium Chloride (Normal Saline 0.9%) 1,000 mls @ 1,000 mls/hr IV BOLUS ONE Stop: 09/18/23 19:47 Last Infusion: 09/18/23 20:00 Dose: Infused Documented By: Admin: 09/18/23 18:53 Dose: 1,000 mls/hr Documented By: VIRIDIANA Sodium Chloride (Normal Saline 0.9%) 1,000 mls @ 1,000 mls/hr IV BOLUS ONE Stop: 09/18/23 22:19 Last Infusion: 09/18/23 22:39 Dose: Infused Documented By: Admin: 09/18/23 21:35 Dose: 1,000 mls/hr Documented By: LEANDRO Ondansetron HCl (Ondansetron 4 Mg/2 Ml Inj) 4 mg IV NOW PRN PRN Reason: Nausea And Vomiting Last Admin: 09/18/23 17:56 Dose: 4 mg Documented By: VIRIDIANA Ondansetron HCl (Ondansetron 4 Mg Odt) 4 mg PO NOW PRN PRN Reason: Nausea And Vomiting Last Admin: 09/18/23 21:41 Dose: 4 mg Documented By: LEANDRO Ondansetron HCl (Ondansetron 4 Mg Odt Prepack) 1 bottle MISC DIRECTED ONE Stop: 09/18/23 21:21 Last Admin: 09/18/23 22:40 Dose: 1 bottle Documented By: LEANDRO Vital Signs Vital signs: Vital Signs - 8 hr 09/18/23 17:27 09/18/23 17:30 09/18/23 17:30 Pulse Rate 83 82 Respiratory Rate Blood Pressure 144/65 H Pulse Oximetry 93 93 Oxygen Delivery Method 09/18/23 18:00 09/18/23 18:01 09/18/23 18:01 Pulse Rate 81 81 Respiratory Rate Blood Pressure 148/67 H Pulse Oximetry 96 96 Oxygen Delivery Method 09/18/23 18:30 09/18/23 18:30 09/18/23 19:09 Pulse Rate 95 H 86 Respiratory Rate Blood Pressure 153/74 H Pulse Oximetry 95 96 Oxygen Delivery Method 09/18/23 19:30 09/18/23 19:50 09/18/23 19:50 Pulse Rate 86 88 Respiratory Rate 30 H Blood Pressure 141/67 H Pulse Oximetry 95 97 Oxygen Delivery Method 09/18/23 20:00 09/18/23 20:00 09/18/23 20:30 Pulse Rate 83 Respiratory Rate 21 Blood Pressure 141/67 H 136/63 Pulse Oximetry 92 Oxygen Delivery Method 09/18/23 20:30 09/18/23 21:05 09/18/23 21:06 Pulse Rate 84 89 Respiratory Rate 22 45 H Blood Pressure 149/71 H Pulse Oximetry 93 95 Oxygen Delivery Method 09/18/23 21:06 09/18/23 21:30 09/18/23 22:00 Pulse Rate 83 80 82 Respiratory Rate 34 H 45 H 26 H Blood Pressure Pulse Oximetry 96 94 94 Oxygen Delivery Method 09/18/23 22:30 09/18/23 22:44 09/18/23 22:44 Pulse Rate 80 81 Respiratory Rate 27 H 28 H Blood Pressure 133/63 Pulse Oximetry 93 93 Oxygen Delivery Method 09/18/23 22:47 Pulse Rate 82 Respiratory Rate 16 Blood Pressure 133/63 Pulse Oximetry 96 Oxygen Delivery Method Room Air Medical Decision Making Medical Records Medical records reviewed: Yes I reviewed the patient's medical records. Lab Data Lab results reviewed: Yes I reviewed the patient's lab results. 09/18/23 17:52 09/18/23 17:52 Labs: Lab Results 09/18/23 09/18/23 Range/Units 17:52 20:58 WBC 10.5 (4.5-11.0) X10^3/uL RBC 3.86 L (4.0-5.2) X10^6/uL Hgb 13.0 (12.0-16.0) g/dL Hct 37.6 (36-46) % MCV 97.3 (80-100) fL MCH 33.7 (26-34) PG MCHC 34.7 (30-36) % RDW 13.4 (11.6-14.8) % Plt Count 225 (150-400) X10^3/uL Neut % (Auto) 72.7 (50-75) % Lymph % (Auto) 13.3 L (25-40) % [place] % (Auto) 13.1 (3-14) % Eos % (Auto) 0.2 L (2-4) % Baso % (Auto) 0.7 (0-2) % Neut # (Auto) 7600 H (1926-5593) /uL Lymph # (Auto) 1400 (4202-5401) /uL [place] # (Auto) 1400 H (0-900) /uL Eos # (Auto) 0 (0-450) /uL Baso # (Auto) 100 (0-100) /uL Sodium 134 L (137-145) mmol/L Potassium 4.0 (3.4-5.1) mmol/L Chloride 105 (98-107) mmol/L Carbon Dioxide 21 L (22-32) mmol/L BUN 18 H (7-17) mg/dL Creatinine 1.12 H (0.52-1.04) mg/dL Estimated GFR 52 L (>60) mL/min BUN/Creatinine Ratio 16.1 (6-22) Glucose 93 (80-110) mg/dL Calcium 9.7 (8.4-10.2) mg/dL Total Bilirubin 0.6 (0.2-1.3) mg/dL AST 55 H (14-36) IU/L ALT 20 (<35) IU/L Alkaline Phosphatase 70 (38-126) U/L Total Protein 6.5 (6.3-8.2) g/dL Albumin 3.3 L (3.5-5.0) g/dL Globulin 3.2 (1.7-4.1) g/dL Albumin/Globulin Ratio 1.0 (1.0-2.8) Lipase 48 (23-300) U/L Urine RBC None seen (0-5/HPF) Urine WBC None seen (0-5/HPF) Ur Squamous Epith Cells 0-1 /hpf (0-5/HPF) Urine Bacteria Occasional (0-1) (None) Ur Culture Indicated? Cult not indicated Vol Urine Centrifuged 10ml (spun) Urine Dip Bedside Urine Glucose Negative Bedside Urine Bilirubin - Negative Bedside Urine Ketone ++ 40 Urine Specific [place] 1.020 Bedside Urine Occult Blood - Negative Bedside Urine pH 5.5 Bedside Urine Protein +/- 15 Bedside Urine Urobilinogen - Negative Bedside Urine Nitrite - Negative Bedside Urine Leukocytes +/- 15 Esterase Point of care testing: Urine Dip Bedside Urine Glucose Negative Bedside Urine Bilirubin - Negative Bedside Urine Ketone ++ 40 Urine Specific [place] 1.020 Bedside Urine Occult Blood - Negative Bedside Urine pH 5.5 Bedside Urine Protein +/- 15 Bedside Urine Urobilinogen - Negative Bedside Urine Nitrite - Negative Bedside Urine Leukocytes +/- 15 Esterase Imaging Data US - LIMOUSINE RENTAL CLERK: Radiologist's Impression: PROCEDURE: US PELVIC COMPLETE INDICATIONS: pelvic masses seen in CT last week TECHNIQUE: Real-time scanning was performed of the pelvic organs, with image documentation. Additional endovaginal scanning was necessary due to incomplete visualization of the adnexal and endometrial structures by transabdominal scanning. COMPARISON: [facility], CT, CT ABDOMEN PELVIS W CON, 09/15/2023, 19:39. FINDINGS: Uterus: Uterus is anteverted and normal in size at 10.0 x 5.5 x 8.6 cm. The myometrium is heterogeneous. The endometrium measures 7 mm combined thickness. Ovaries: The ovaries are not seen. Masses within the pelvis measuring 13.1 x 6.8 x 7.8 cm in the left lower quadrant and 10.7 x 6.1 x 7.8 cm in the right lower quadrant. These are of uncertain etiology. Other: No pathologic free abdominal or pelvic fluid. IMPRESSION: Redemonstration of large pelvic masses. Findings are concerning for malignancy, possibly gynecologic in origin. CT scan - chest: Radiologist's Impression: PROCEDURE: CT CHEST W CON INDICATIONS: abdominal and pelvic masses eval for chest masses TECHNIQUE: After the administration of intravenous contrast, 5 mm thick sections acquired from the pulmonary apices to the posterior costophrenic angles. 1 mm axial lung, 5 mm thick coronal and sagittal reformats and 7 mm axial MIP were acquired. For radiation dose reduction, the following was used: automated exposure control, adjustment of mA and/or kV according to patient size. COMPARISON: [facility], CT, CT ABDOMEN PELVIS W CON, 09/15/2023, 19:39. FINDINGS: Image quality: Diagnostic. Lower Neck: No enlarged lymph nodes. Thyroid: No thyroid nodules which require sonographic follow up, per consensus guidelines. Axillae: No enlarged lymph nodes. Chest Wall: Unremarkable. Bones: Visualized osseous structures appear intact without acute fracture or focal destructive lesion. No acute compression fractures of the imaged spine. Lungs and Pleura: Small right pleural effusion, larger compared to the prior study. Associated compressive atelectasis. 6 mm left lower lobe pulmonary nodule (236/series 3). 5 mm right lower lobe nodule (173/series 3). 3 mm right middle lobe nodule (157/series 3). 4 mm right middle lobe nodule (174/series 3). No septal thickening or nodularity. No pneumothorax. Visualized airways are patent. Heart: Heart size is normal. No pericardial effusion. Thoracic Vessels: The aorta and pulmonary arteries demonstrate normal size. Mediastinum and Edith: Multiple mediastinal lymph nodes more notable for number rather than size and probably reactive in etiology. There are prominent, mildly enlarged anterior and right pericardial fat lymph nodes suspicious for metastatic adenopathy. Esophagus: No wall thickening. No hiatal hernia. Upper Abdomen: Visualized upper abdomen solid organs and bowel loops appear unremarkable. IMPRESSION: Prominent pericardial fat lymph nodes suspicious for metastatic adenopathy. Multiple small bilateral pulmonary nodules measuring between 3mm and 6 mm in size.These are indeterminate. Metastatic nodules cannot be excluded. Recommend follow-up CT in 3-6 months. Mild increase in size of small right pleural effusion with associated compressive atelectasis. CT scan - head: Radiologist's Impression: PROCEDURE: CT HEAD/BRAIN WO CON INDICATIONS: abdominal masses and confusion eval for brain mets TECHNIQUE: Noncontrast 4.5 mm thick angled axial sections acquired from the foramen magnum to the vertex, with coronal and sagittal reformats. For radiation dose reduction, the following was used: automated exposure control, adjustment of mA and/or kV according to patient size. COMPARISON: [facility], CT, HEAD WITHOUT CONTRAST, 02/03/2017, 0:25. FINDINGS: Image quality: Diagnostic. CSF spaces: Basal cisterns are patent. No extra-axial fluid collections. The ventricles are symmetric in size and shape. Brain: No intracranial bleeds or masses. There is cerebral volume loss for age, with resultant ventricular and sulcal prominence. There are periventricular and deep white matter chronic small vessel ischemic changes. There is intracranial internal carotid artery atherosclerosis. Skull and face: Calvarium and visualized facial bones appear intact, without suspicious lesions. Sinuses: Visualized sinuses and mastoids are clear. IMPRESSION: No acute intracranial pathology. Please note, CT has low sensitivity for detection of small intracranial metastatic lesions. If clinically indicated, MRI brain with and without contrast can be obtained for further evaluation. ECG Data Attestation: I personally reviewed and interpreted this ECG as follows: Interpretation: Sinus rhythm Ventricular rate of 87 Left axis deviation Normal QRS No ST T wave changes MDM Narrative Medical decision making narrative: Pelvic ultrasound today redemonstrates the large pelvic masses of uncertain origin. Head CT is unremarkable. CT scan of the chest just so enlarged lymphadenopathy as well. Labs are unremarkable. Patient is tolerating oral intake. Patient does have the contact information for the kind oncologist. I recommended that she contact them on Thursday to discuss follow-up. They were given a copy of their imaging studies today and labs to take with them. Also recommended that she contact her primary provider for follow-up as well. No indication for admission to the hospital. Unfortunately not much more can be done out of the emergency department given her workup over her last 2 visits. She was given return precautions Discharge Plan Departure Patient Disposition: Home Clinical Impression: Pelvic mass in female Activity Restrictions/Additional Instructions: Use the pain medicine and nausea medication as needed. I do recommend on Thursday you contact your primary doctor to make sure that they are aware of the findings on the CT scans during your last visits here in the emergency department. Also contact the architectural practice manager/oncologist to discuss follow-up. Return to the emergency department for new symptoms. Prescriptions: New ondansetron 4 mg tablet,disintegrating 4 mg PO Q6H PRN (Reason: nausea and vomiting) Qty: 14 0RF hydrocodone-acetaminophen 5-325 mg tablet 1 tab PO Q6H PRN (Reason: pain) Qty: 14 0RF No Action folic acid 1 mg tablet 1 mg PO DAILY Qty: 0 sulfasalazine [Azulfidine] 500 mg tablet 500 mg PO TID Qty: 0 hydrochlorothiazide 12.5 mg capsule See Rx Instructions .ROUTE .COMPLEX Qty: 90 1RF Dose Instruction: take 1 capsule by mouth every morning FOR HYPERTENSION BP GOAL < 140/90 CONSISTENTLY Rx Instructions: take 1 capsule by mouth every morning FOR HYPERTENSION BP GOAL < 140/90 CONSISTENTLY gabapentin 300 mg capsule 300 mg PO TID Qty: 270 0RF Rx Instructions: one capsule in the morning and two capsules at night aspirin [Adult Low Dose Aspirin] 81 mg tablet,delayed release (DR/EC) 81 mg PO DAILY alendronate [Fosamax] 70 mg tablet 70 mg PO QWEEK multivitamin [Daily Multi-Vitamin] tablet 1 tab PO DAILY Simponi ARIA 12.5 mg/mL solution 100 mg IV Q8W Rx Instructions: administer over 30 mins amlodipine 5 mg tablet 5 mg PO DAILY Qty: 90 3RF Referrals: Danika Gaspar ARNP [Primary Care Provider] - Stand Alone Forms: Patient Portal/API
[2023-09-18] MEDS: SODIUM CHLORIDE 0.9% 1,000 ML 1000 ML IV ×2 (18:53→21:35)
[2023-09-18] MEDS: MAG HYDROX/ALUMINUM/SIMETH SUS 20 ML, LIDOCAINE VISCOUS 2% 15 ML PO (21:41)
[2023-09-18] MEDS: ONDANSETRON 4 MG ODT PO (21:41)
[2023-09-18 21:47] LABS: Bacteria Urine Occasional (0-1); Culture Indicated Urine Cult Not Indicated; RBC Urine None Seen (0-5/HPF); Squamous Epithelial Cell Urine 0-1 /HPF (0-5/HPF); Urine Volume 10mL (spun); WBC Urine None Seen (0-5/HPF)
[2023-09-18] MEDS: HYDROCODONE/ACET 5/325 PREPACK 1 BOTTLE MISC (22:40)
[2023-09-18] MEDS: ONDANSETRON 4 MG ODT PREPACK 1 BOTTLE MISC (22:40)
== END 2023-09-18 22:50 | disposition home or self-care (01) ==
PROVIDERS: Emergency Medicine; Emergency Provider Emergency Medicine; Family Provider Nurse Practitioner; PCP Nurse Practitioner
DX: R19.00 Intra-abdominal and pelvic swelling, mass and lump, unspecified site (principal); Z79.899 Other long term (current) drug therapy; R41.0 Disorientation, unspecified
CPT/HCPCS: 70450; 71260; 76856; 80053; 81003; 81015; 83690; 85025; 93005; 96361; 96374; 96375; 99284; J1170; J2405; Q9967

== ENCOUNTER → 2023-09-29 15:00 | Outpatient (CLI) | payer MEDICARE, OTHER, SELFPAY ==
--- NOTE | 2023-09-29 15:02 | DI.RAD.S_ITS ---
PROCEDURE: XR ABDOMEN 1V INDICATIONS: constipation TECHNIQUE: One view of the abdomen acquired. COMPARISON: None. FINDINGS: Surgical changes and devices: None. Bowel: Bowel gas pattern is normal except for mild colonic obstipation. Soft tissues: No suspicious abdominal calcifications. Visualized solid organ contours appear normal in size. Bones: No suspicious bony lesions. IMPRESSION: Mild colonic obstipation. Dictated by: Dereje Merrill M.D. on 09/30/2023 at 9:09 Approved by: Dereje Merrill M.D. on 09/30/2023 at 9:09
== END ==
LOC: RAD 15:02
PROVIDERS: Family Provider Nurse Practitioner; PCP Family Medicine; Referring Provider Family Medicine; Visit Provider Family Medicine
DX: K59.00 Constipation, unspecified (principal)
CPT/HCPCS: 74018

== ENCOUNTER 2023-10-12 16:41 | Inpatient (IN) | payer MEDICARE, OTHER, SELFPAY ==
[2023-10-12] VITALS (18 sets, daily range): BP systolic 144–169; BP diastolic 64–80; PULSE 99–111; RESP 14–24; TEMP 37–37.7; O2SAT 93–96; BMI 26.4
--- NOTE | 2023-10-12 16:58 | EKG_ITS ---
[facility] [address] [place] [address] Test Date: 2023-10-12 Pat Name: Chinyere Ortega Department: Room: Gender: Female Child Psychiatrist: PATRICIO : 1950 Requested By: Order Number: [id number] Reading MD: Baldo Doll Measurements Intervals [place] Rate: 104 P: 57 [place]: 146 QRS: -32 QRSD: 78 T: 101 QT: 322 QTc: 423 Interpretive Statements Sinus tachycardia Left axis deviation Nonspecific ST and T wave abnormality Electronically Signed On 10-19-2023 9:03:46 PDT by Baldo Doll
--- NOTE | 2023-10-12 16:58 | DI.RAD.S_ITS ---
PROCEDURE: XR CHEST 1V INDICATIONS: altered mental status TECHNIQUE: One view of the chest was acquired. COMPARISON: [facility], CT, CT CHEST W CON, 09/18/2023, 18:51. [facility], CR, XR CHEST 1V, 09/15/2023, 16:58. FINDINGS: Surgical changes and devices: Right Port-A-Cath is present distal tip projecting over the distal SVC/right atrial junction. Lungs and pleura: Lungs are clear. No pleural effusions or pneumothorax. Mediastinum: Mediastinal contours appear normal. Heart size is normal. Bones and chest wall: No suspicious bony lesions. Overlying soft tissues appear unremarkable. IMPRESSION: No acute pulmonary process. Dictated by: Sarah Mccurdy M.D. on 10/12/2023 at 17:38 Approved by: Sarah Mccurdy M.D. on 10/12/2023 at 17:39
[2023-10-12 17:05] LABS: Hematocrit 33.8 % (36-46); Hemoglobin 11.2 g/dL (12.0-16.0); Mean Corpuscular HGB Conc 33.1 % (30-36); Mean Corpuscular Hemoglobin 32.1 PG (26-34); Mean Corpuscular Volume 97.1 fL (80-100); Platelet Count 207 X10^3/uL (150-400); Red Blood Cell Count 3.48 X10^6/uL (4.0-5.2); White Blood Cell Count 21.5 X10^3/uL (4.5-11.0)
[2023-10-12 17:09] LABS: Add Manual Diff / Slide Review YES
[2023-10-12 17:19] LABS: Alanine Aminotransferase 27 IU/L (<35); Albumin 3.5 g/dL (3.5-5.0); Albumin Globulin Ratio 1.2 (1.0-2.8); Alkaline Phosphatase 117 U/L (38-126); Aspartate Aminotransferase 208 IU/L (14-36); BUN Creatinine Ratio 33.9 (6-22); Blood Urea Nitrogen 41 mg/dL (7-17); Calcium 11.9 mg/dL (8.4-10.2); Carbon Dioxide 16 mmol/L (22-32); Chloride 104 mmol/L (98-107); Estimated Glomerular Filt Rate 47 mL/min (>60); Globulin 2.9 g/dL (1.7-4.1); Glucose 87 mg/dL (80-110); HEMOLYSIS < 15 (0-50); INR 1.3 (0.9-1.3); Potassium 4.3 mmol/L (3.4-5.1); Prothrombin Time 14.6 SECONDS (9.4-12.5); Sodium 139 mmol/L (137-145); Total Protein 6.4 g/dL (6.3-8.2)
[2023-10-12 17:20] LABS: Ammonia (NH3) 15 umol/L (9-30)
[2023-10-12 17:22] LABS: PTT Partial Thromboplastin Tim 28 SECONDS (25.1-36.5)
[2023-10-12 17:26] LABS: Neutrophils Absolute Manual 19565 /uL (3000-5900); Total Cells Counted 100
[2023-10-12] MEDS: SODIUM CHLORIDE 0.9% 1,000 ML 1000 ML IV (17:27)
[2023-10-12] MEDS: ONDANSETRON 4 MG/2 ML INJ IV (17:27)
[2023-10-12 17:28] LABS: Anisocytosis 1+; Hypochromasia 1+; Spherocytes 1+
[2023-10-12 17:33] LABS: Lactate (Lactic Acid) 6.2 mmol/L (0.7-2.1)
[2023-10-12 17:43] LABS: Lipase 22 U/L (23-300)
[2023-10-12 18:01] LABS: Procalcitonin 0.319 ng/mL (<0.5)
[2023-10-12 18:14] LABS: Appearance Urine UA CLEAR; Bilirubin Urine UA 2+ (NEGATIVE); Color Urine UA YELLOW; Glucose Urine UA NEGATIVE (Negative); Ketones Urine UA 1+ (NEGATIVE); Leukocyte Esterase Urine UA NEGATIVE (NEGATIVE); Nitrite Urine UA NEGATIVE (Negative); Occult Blood Urine UA NEGATIVE (Negative); Protein Urine UA 1+ (Negative); Specific Gravity Urine UA >=1.030 (1.000-1.035)
--- NOTE | 2023-10-12 18:18 | ED_ITS ---
HPI - General Adult General Chief complaint: Weakness Stated complaint: has an increase in weakness and abdominal pain Time Seen by Provider: 10/12/23 18:08 Source: patient Mode of arrival: EMS History of Present Illness HPI narrative: 73-year-old woman recently diagnosed with presumed ovarian cancer had port placed, followed by the [facility]. Increasing abdominal pain and confusion generalized weakness. Medication changes significant for discontinuing gabapentin, increasing oxycodone. After biopsy at the [facility] on September 30, there was discussion about lymphoma rather than ovarian cancer. She is scheduled for consultation with Oncology at [facility] on the . She notes her last bowel movement was a couple of days ago. There was no significant pain at her recently placed right upper chest port. Significant nausea overall decline increased confusion/delirium and complains of significant increasing abdominal pain Related Data Home Medications Medication Instructions Recorded Confirmed alendronate 70 mg tablet (Fosamax) 70 mg PO QWEEK 08/10/18 10/12/23 aspirin 81 mg tablet,delayed 81 mg PO DAILY 08/10/18 10/12/23 release (Adult Low Dose Aspirin) folic acid 1 mg tablet 1 mg PO DAILY #0 tabs 08/10/18 10/12/23 multivitamin (Daily Multi-Vitamin 1 tab PO DAILY 08/10/18 10/12/23 tablet) sulfasalazine 500 mg tablet 500 mg PO TID #0 tabs 08/10/18 10/12/23 (Azulfidine) golimumab 12.5 mg/mL intravenous 100 mg IV Q8W 08/18/23 10/12/23 solution (Simponi ARIA) docusate sodium 100 mg capsule See Rx Instructions .Route 10/12/23 10/12/23 (Colace) .COMPLEX PRN Constipation estradiol 0.01% (0.1 mg/gram) 1.5 g vaginal 2XW 10/12/23 10/12/23 vaginal cream losartan 25 mg tablet 25 mg PO DAILY 10/12/23 10/12/23 oxycodone 5 mg tablet 5 mg PO Q4H PRN pain 10/12/23 10/12/23 Previous Rx's Medication Instructions Recorded gabapentin 300 mg capsule 300 mg PO TID #270 caps 04/20/23 amlodipine 5 mg tablet 5 mg PO DAILY #90 tabs 08/18/23 sennosides 8.6 mg capsule (senna) See Rx Instructions .Route 09/24/23 .COMPLEX PRN constipation #1 cap ondansetron 4 mg disintegrating 4 mg PO Q6H PRN nausea and 10/05/23 tablet vomiting #60 tabs Allergies Allergy/AdvReac Type Severity Reaction Status Date / Time codeine [CODEINE] Allergy Intermediate Rash Verified 09/29/23 14:21 Penicillins [PENICILLINS] Allergy Intermediate Rash Verified 09/29/23 14:21 prednisone AdvReac Severe Confusion Verified 09/29/23 14:21 tramadol AdvReac Severe Confusion Verified 09/29/23 14:21 lisinopril AdvReac Intermediate Cough Verified 09/29/23 14:21 celecoxib [From Celebrex] AdvReac Unknown Verified 09/29/23 14:21 Review of Systems Review of Systems Narrative: Pertinent positive and negative findings as per HPI Patient History Medical History (Updated 10/12/23 @ 21:12 by Maria Elena Jeronimo MD) Constipation Pain of metastatic malignancy Hypertension Elevated LDL cholesterol level 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 Mixed hyperlipidemia Breast cancer screening Serum calcium elevated Post traumatic stress disorder (PTSD) (~1989) Osteoporosis (~2009) History of recurrent ear infection (~1950) ADD (attention deficit disorder) Spondylarthritis Depression DJD (degenerative joint disease) Back pain (~2009) Surgical History Anesthesia History of thumb surgery History of section History of carpal tunnel release (~2005) Hx of laminectomy S/P total knee arthroplasty (~01/2016) Hx of total knee arthroplasty (~05/2017) Family History Father Mental health problem Mother Mental health problem Social History household members: spouse Smoking Status: Former smoker alcohol intake: never Smoking Status: Former smoker Substance Use Type: does not use Exam Initial Vital Signs Initial Vital Signs: Vital Signs Temperature 98.6 F 10/12/23 16:41 Pulse Rate 105 H 10/12/23 16:41 Respiratory Rate 18 10/12/23 16:41 Blood Pressure 144/70 H 10/12/23 16:41 Pulse Oximetry 96 10/12/23 16:41 Oxygen Delivery Method Room Air 10/12/23 16:41 General: Pale, chronically ill-appearing appears uncomfortable, able to speak in full sentences slightly confused, supplies most of the history HEENT: Dry mucous membranes, normal sclera with reactive pupils, Neck: No JVD, supple, no cervical adenopathy Respiratory: Lungs are clear to auscultation, no wheezing no rales no rhonchi. Full and symmetrical air movement. Newly placed port in the right upper chest is nontender, nonerythematous appears to be healing nicely Cardiac: Tachycardic Regular rate and rhythm no murmurs no bruits Abdomen: Firm with multiple palpable masses. No bowel tones appreciated no borborygmi. She is tender without acute rebound or guarding Skin: Pale, poor peripheral perfusion Neurologic: Globally weak Grossly neurologically intact with no obvious asymmetries or abnormalities, confused regarding timing, events. Oriented to place and person Extremities: No trauma, no lower extremity edema Psych: Cooperative, concern for increasing delirium, not currently responding to internal stimuli Course Orders Ordered: ED Orders 10/12/23 18:32 CT abdomen pelvis w con Stat Acetaminophen (Acetaminophen 325 Mg Tablet) 650 mg PO Q4H PRN PRN Reason: Fever/Mild Pain (1-3) Stop: 10/14/23 07:00 Last Admin: 10/13/23 01:46 Dose: 650 mg Documented By: MELVI Gabapentin (Gabapentin 300 Mg Capsule) 300 mg PO TID ELEAZAR Last Admin: 10/13/23 00:04 Dose: 300 mg Documented By: MELVI Hydromorphone HCl (Hydromorphone 0.5 Mg Inj) 0.5 mg IV Q15MIN PRN PRN Reason: Pain, Last Admin: 10/12/23 22:50 Dose: 0.5 mg Documented By: Admin: 10/12/23 19:17 Dose: 0.5 mg Documented By: ESTHER Hydromorphone HCl (Hydromorphone 0.5 Mg Inj) 0.5 mg IV Q15MIN PRN PRN Reason: Pain, Hydromorphone HCl (Hydromorphone 0.5 Mg Inj) 0.5 mg IV Q2H PRN PRN Reason: Pain, Severe (7-10) Last Admin: 10/13/23 01:15 Dose: 0.5 mg Documented By: MELVI Sodium Chloride (Normal Saline 0.9%) 1,000 mls @ 150 mls/hr IV CONT ELEAZAR Last Infusion: 10/12/23 22:17 Dose: 0 mls/hr Documented By: Admin: 10/12/23 21:35 Dose: 150 mls/hr Documented By: MICHELLE Naloxone HCl (Naloxone 0.4 Mg/Ml Vial) 0.2 mg IV Q2MIN PRN PRN Reason: Opiate Reversal Ondansetron HCl (Ondansetron 4 Mg Odt) 4 mg SL NOW PRN PRN Reason: Nausea And Vomiting Ondansetron HCl (Ondansetron 4 Mg/2 Ml Inj) 4 mg IV Q6HR PRN PRN Reason: Nausea And Vomiting Oxycodone HCl (Oxycodone Ir 5 Mg Tablet) 5 mg PO Q3H PRN PRN Reason: Pain, Moderate (4-6) Prochlorperazine (Prochlorperazine 10 Mg/2 Ml Vial) 10 mg IV Q6HR PRN PRN Reason: Nausea Discontinued Medications Fentanyl (Fentanyl 25 Mcg/Patch) 25 mcg TOP NOW ONE Stop: 10/12/23 21:05 Last Admin: 10/12/23 21:31 Dose: 25 mcg Documented By: MICHELLE Sodium Chloride (Normal Saline 0.9%) 1,000 mls @ 1,000 mls/hr IV BOLUS ONE Stop: 10/12/23 18:10 Last Infusion: 10/12/23 18:57 Dose: Infused Documented By: Admin: 10/12/23 17:27 Dose: 1,000 mls/hr Documented By: ESTHER Sodium Chloride (Normal Saline 0.9%) 2,109.21 mls @ 703.07 mls/hr 30 ml/kg infuse over 3 hr (2109.21 ml) IV NOW ONE Stop: 10/12/23 21:31 Last Infusion: 10/12/23 20:56 Dose: Infused Documented By: Admin: 10/12/23 18:47 Dose: 703.07 mls/hr Documented By: ESTHER Cefepime HCl 2 gm/ Sodium (Chloride) 100 mls @ 200 mls/hr IV NOW ONE Stop: 10/12/23 18:33 Last Infusion: 10/12/23 19:39 Dose: Infused Documented By: Admin: 10/12/23 18:48 Dose: 200 mls/hr Documented By: ESTHER Vancomycin HCl (Vancomycin) 1,000 mg in 200 mls @ 200 mls/hr IV NOW ONE Stop: 10/12/23 19:31 Last Infusion: 10/12/23 20:56 Dose: Infused Documented By: Admin: 10/12/23 19:48 Dose: 200 mls/hr Documented By: MICHELLE Ondansetron HCl (Ondansetron 4 Mg/2 Ml Inj) 4 mg IV NOW PRN PRN Reason: Nausea And Vomiting Last Admin: 10/12/23 17:27 Dose: 4 mg Documented By: ESTHER Ondansetron HCl (Ondansetron 4 Mg/2 Ml Inj) 4 mg IV NOW ONE Stop: 10/12/23 18:42 Last Admin: 10/12/23 19:14 Dose: Not Given Documented By: ESTHER Prochlorperazine (Prochlorperazine 10 Mg/2 Ml Vial) 10 mg IV NOW ONE Stop: 10/12/23 21:05 Last Admin: 10/12/23 21:28 Dose: 10 mg Documented By: MICHELLE Vital Signs Vital signs: Vital Signs - 8 hr 10/12/23 19:30 10/12/23 19:30 10/12/23 20:00 Temperature 99.5 F Pulse Rate 102 H Respiratory Rate 22 Blood Pressure 151/68 H 154/72 H Pulse Oximetry 93 Oxygen Delivery Method Room Air 10/12/23 20:00 10/12/23 20:30 10/12/23 20:30 Temperature 99.3 F 99.5 F Pulse Rate 103 H 103 H Respiratory Rate 17 19 Blood Pressure 169/77 H Pulse Oximetry 95 94 Oxygen Delivery Method 10/12/23 21:00 10/12/23 21:00 10/12/23 21:28 Temperature 99.5 F Pulse Rate 102 H 103 H Respiratory Rate 18 Blood Pressure 157/71 H 157/71 H Pulse Oximetry 93 Oxygen Delivery Method 10/12/23 21:30 10/12/23 21:30 Temperature 99.9 F H Pulse Rate 103 H Respiratory Rate 18 Blood Pressure 155/70 H Pulse Oximetry 95 Oxygen Delivery Method Medical Decision Making Lab Data 10/12/23 16:50 10/12/23 16:50 Labs: Lab Results 10/12/23 10/12/23 10/12/23 Range/Units 16:50 17:44 17:44 WBC 21.5 H (4.5-11.0) X10^3/uL RBC 3.48 L (4.0-5.2) X10^6/uL Hgb 11.2 L (12.0-16.0) g/dL Hct 33.8 L (36-46) % MCV 97.1 (80-100) fL MCH 32.1 (26-34) PG MCHC 33.1 (30-36) % RDW 14.0 (11.6-14.8) % Plt Count 207 (150-400) X10^3/uL Neut % (Auto) Not Reportable Lymph % (Auto) Not Reportable [place] % (Auto) Not Reportable Eos % (Auto) Not Reportable Baso % (Auto) Not Reportable Lymph # (Auto) Not Reportable [place] # (Auto) Not Reportable Baso # (Auto) Not Reportable Total Counted 100 Seg Neutrophils % 90.0 H (38-70) % Band Neutrophils % 1.0 L (3-7) % Lymphocytes % (Manual) 2.0 L (25-45) % Atypical Lymphs % 1.0 H ( - 0) % Monocytes % (Manual) 6.0 (2-11) % Neutrophils # (Manual) 58790 H (7487-1049) /uL RBC Morphology See below Hypochromasia 1+ H Anisocytosis 1+ H Spherocytes 1+ H PT 14.6 H (9.4-12.5) SECONDS INR 1.3 (0.9-1.3) APTT 28 (25.1-36.5) SECONDS Sodium 139 (137-145) mmol/L Potassium 4.3 (3.4-5.1) mmol/L Chloride 104 (98-107) mmol/L Carbon Dioxide 16 L (22-32) mmol/L BUN 41 H (7-17) mg/dL Creatinine 1.21 H (0.52-1.04) mg/dL Estimated GFR 47 L (>60) mL/min BUN/Creatinine Ratio 33.9 H (6-22) Glucose 87 (80-110) mg/dL Lactate 6.2 H* (0.7-2.1) mmol/L Calcium 11.9 H (8.4-10.2) mg/dL Total Bilirubin 1.0 (0.2-1.3) mg/dL AST 208 H (14-36) IU/L ALT 27 (<35) IU/L Alkaline Phosphatase 117 (38-126) U/L Ammonia 15 (9-30) umol/L Total Protein 6.4 (6.3-8.2) g/dL Albumin 3.5 (3.5-5.0) g/dL Globulin 2.9 (1.7-4.1) g/dL Albumin/Globulin Ratio 1.2 (1.0-2.8) Lipase 22 L (23-300) U/L Procalcitonin 0.319 (<0.5) ng/mL Urine Color Yellow Urine Appearance Clear Urine pH 5.5 Normal (4.5-8.0) Ur Specific [place] >=1.030 H (1.000-1.035) Urine Protein 1+ H (Negative) Urine Glucose (UA) Negative (Negative) g/dL Urine Ketones 1+ H (NEGATIVE) Urine Occult Blood Negative (Negative) Urine Nitrate Negative (Negative) Urine Bilirubin 2+ H (NEGATIVE) Ur Bilirubin Confirm Negative (Negative) Urine Urobilinogen 1.0 (0.2) E.U./dL Ur Leukocyte Esterase Negative (NEGATIVE) Urine RBC None seen (0-5/HPF) Urine WBC 0-1/hpf (0-5/HPF) Ur Squamous Epith Cells 0-1 /hpf (0-5/HPF) Urine Bacteria None seen (None) Hyaline Casts 1-5/lpf (None) Granular Casts 1-5/lpf (None) Ur Culture Indicated? Cult not indicated Vol Urine Centrifuged 10ml (spun) U Opiates 300ng/mL cut Negative (Negative) Ur Oxycodone Screen Positive H (Negative) Urine Methadone Screen Negative (Negative) Ur Barbiturates Screen Negative (Negative) U Tricyclic Antidepress Negative (Negative) Ur Phencyclidine Scrn Negative (Negative) Ur Amphetamines Screen Negative (Negative) U Methamphetamines Scrn Negative (Negative) Ur MDMA Scrn (Ecstasy) Negative (Negative) U Benzodiazepines Scrn Negative (Negative) Urine Cocaine Screen Negative (Negative) U Marijuana (THC) Screen Negative (Negative) Urine Specific [place] Normal (Normal) Ur Creatinine Normal (Normal) 10/12/23 Range/Units 18:50 WBC (4.5-11.0) X10^3/uL RBC (4.0-5.2) X10^6/uL Hgb (12.0-16.0) g/dL Hct (36-46) % MCV (80-100) fL MCH (26-34) PG MCHC (30-36) % RDW (11.6-14.8) % Plt Count (150-400) X10^3/uL Neut % (Auto) Lymph % (Auto) [place] % (Auto) Eos % (Auto) Baso % (Auto) Lymph # (Auto) [place] # (Auto) Baso # (Auto) Total Counted Seg Neutrophils % (38-70) % Band Neutrophils % (3-7) % Lymphocytes % (Manual) (25-45) % Atypical Lymphs % ( - 0) % Monocytes % (Manual) (2-11) % Neutrophils # (Manual) (9731-2859) /uL RBC Morphology Hypochromasia Anisocytosis Spherocytes PT (9.4-12.5) SECONDS INR (0.9-1.3) APTT (25.1-36.5) SECONDS Sodium (137-145) mmol/L Potassium (3.4-5.1) mmol/L Chloride (98-107) mmol/L Carbon Dioxide (22-32) mmol/L BUN (7-17) mg/dL Creatinine (0.52-1.04) mg/dL Estimated GFR (>60) mL/min BUN/Creatinine Ratio (6-22) Glucose (80-110) mg/dL Lactate 5.6 H* (0.7-2.1) mmol/L Calcium (8.4-10.2) mg/dL Total Bilirubin (0.2-1.3) mg/dL AST (14-36) IU/L ALT (<35) IU/L Alkaline Phosphatase (38-126) U/L Ammonia (9-30) umol/L Total Protein (6.3-8.2) g/dL Albumin (3.5-5.0) g/dL Globulin (1.7-4.1) g/dL Albumin/Globulin Ratio (1.0-2.8) Lipase (23-300) U/L Procalcitonin (<0.5) ng/mL Urine Color Urine Appearance Urine pH (4.5-8.0) Ur Specific [place] (1.000-1.035) Urine Protein (Negative) Urine Glucose (UA) (Negative) g/dL Urine Ketones (NEGATIVE) Urine Occult Blood (Negative) Urine Nitrate (Negative) Urine Bilirubin (NEGATIVE) Ur Bilirubin Confirm (Negative) Urine Urobilinogen (0.2) E.U./dL Ur Leukocyte Esterase (NEGATIVE) Urine RBC (0-5/HPF) Urine WBC (0-5/HPF) Ur Squamous Epith Cells (0-5/HPF) Urine Bacteria (None) Hyaline Casts (None) Granular Casts (None) Ur Culture Indicated? Vol Urine Centrifuged U Opiates 300ng/mL cut (Negative) Ur Oxycodone Screen (Negative) Urine Methadone Screen (Negative) Ur Barbiturates Screen (Negative) U Tricyclic Antidepress (Negative) Ur Phencyclidine Scrn (Negative) Ur Amphetamines Screen (Negative) U Methamphetamines Scrn (Negative) Ur MDMA Scrn (Ecstasy) (Negative) U Benzodiazepines Scrn (Negative) Urine Cocaine Screen (Negative) U Marijuana (THC) Screen (Negative) Urine Specific [place] (Normal) Ur Creatinine (Normal) Imaging Data CT scan - abdomen/pelvis: Radiologist's Impression: PROCEDURE: CT ABDOMEN PELVIS W CON INDICATIONS: sepsis TECHNIQUE: After the administration of intravenous contrast, axial sections acquired from the lung bases to the pubic symphysis. Coronal and sagittal reformats were performed. For radiation dose reduction, the following was used: automated exposure control, adjustment of mA and/or kV according to patient size. COMPARISON: [facility], CT, CT ABDOMEN PELVIS W CON, 09/15/2023, 19:39. FINDINGS: Image quality: Diagnostic. Lower Chest: [id number] right effusion new compared to prior exam. Minimal pericardial effusion. There is a circumscribed focus along the anterior pericardial sac measuring 1.6 x 2.4 cm Hounsfield units measure 52. This was present on prior exam measuring 0.5 x 1.0 cm. There is been interval appearance and enlargement of similar foci along the right pericardial fat the largest measuring 2.8 cm compared to 1.2 cm. ABDOMEN: Liver: No solid mass. Gallbladder: No radiopaque gallstones or wall thickening. Biliary ducts: No biliary dilation. Pancreas: No ductal dilation. Spleen: Size is within normal limits. Adrenal Glands: No adrenal nodules. Kidneys and Ureters: There is persistent appearance prominent left hydronephrosis. As described below there is encasement of the renal pelvis and proximal ureter within the periaortic mass. Stomach and Bowel: Normal colonic caliber, without significant wall thickening. Peritoneum: There is been marked interval enlargement periaortic soft tissue confluent mass currently measuring 6.8 x 10.4 cm compared to 4.3 x 6.3 cm. The soft tissue mass has extended with invasion into the left renal pelvis. In addition, previous pelvic masses have enlarged and become confluent with near complete filling of the pelvis and lower abdomen. More isolated anterior abdominal masses have increased in size and number compared to prior exam. The bladder is displaced anteriorly with the catheter. Ventral Wall: No significant ventral hernia. Vessels: Aorta and inferior vena cava are normal in size. PELVIS: Pelvic Organs: Unremarkable. Bladder: No bladder wall thickening, accounting for underdistention. Pelvic Nodes: No enlarged lymph nodes. Miscellaneous: No inguinal hernias are seen. Bones: No aggressive osseous abnormality. IMPRESSION: Interval [id number] right effusion. Interval development of pericardial nodularities. Findings are concerning for malignancy. Marked enlargement and development of new abdominal and pelvic masses with near complete confluent mass appearance within the lower abdomen and pelvis, consistent with malignancy. Marked enlarged retroaortic soft tissue mass with invasion and encasement of the left renal pelvis with persistent hydronephrosis consistent with malignancy. Dictated by: Sarah Mccurdy M.D. on 10/12/2023 at 19:46 MDM Narrative Medical decision making narrative: CC: Weakness, delirium, Complicating co-morbidities: Recent diagnosis multiple abdominal masses initial presumption was ovarian cancer. After biopsy of the [facility] on the 9th question of lymphoma. Oncology consultation scheduled in the . Recently placed port Data collected from: patient, majority of history is from her as patient is weak and slightly confused Social determinants of health that may influence the patients condition: New diagnosis still awaiting confirmation Code status: Patient prefers to be DNI DNR. In light of recent CT scan findings she would like to proceed with a focus on comfort Medical records reviewed: Abdominal CT September 14 shows left hydronephrosis, proximal left hydroureter due to mass effect by multiple large retroperitoneal masses and large lower abdominal pelvic mass concern for ovarian adnexal etiology with retroperitoneal metastatic nodes. Small right pleural effusion appreciated Ultrasound September 17 shows multiple pelvic masses, ovaries are not seen enlarged uterus September [address] shows multiple bilateral pulmonary nodules, persistent right pleural effusion September [address] is unremarkable Differential considered: Sepsis, infection from recently placed port, carcinomatosis, pyelonephritis with obstructing uropathy secondary to masses, intra-abdominal abscess Exam documented above, pertinent findings include: Weak, delirious, tachycardic, abdomen is firm with multiple masses appreciated. She does not have an acute surgical abdomen but is diffusely tender. Lab Test results independently reviewed as above. Pertinent findings: CBC shows dramatic leukocytosis at 21.5, slight anemia 11.2 and 33.8 which is a drop from September 17 when she was 12 and 37.3, platelets are approved Chemistries show slight increase in creatinine from 1.1-1.21. Electrolytes are appropriate. Calcium slightly elevated at 11.9 Lipase is unremarkable Procalcitonin is not elevated Lactic acid is significantly elevated at 6.2 Urine shows ketones does not look like urinary tract infection Independently reviewed EKG: EKG at a rate of 104, nonspecific STT wave changes Imaging studies independently reviewed: Chest x-ray is unremarkable no acute infiltrates, pleural effusion noticed at the end of August is not appreciated on chest x-ray today CT scan is repeated compared to abdominal scan from September 14. -new right pleural effusion - mild pericardial effusion -circumcised focus along the anterior pericardial sac this was present previously but enlargement an interval appearance of similar foci along the right pericardial fat -prominent left hydronephrosis with encasement of the renal pelvis and proximal ureter within the periaortic mass -marked interval enlargement of periaortic soft tissue confluent mass now 6.8 x 10.4 cm compared to 4.6 x 6.3 cm. -periaortic soft tissue mass is now extending and invading into the left renal pelvis -previous pelvic masses have enlarged and become confluent with near-complete filling of the pelvis and lower abdomen. More isolated anterior abdominal masses have increased in size and number Consultations: Dr Glenda John MD oncology at [facility]. This is the physician she is scheduled to see to review pathology results on October 13. Unfortunately pathology results are still not yet available. Treatments: Fluids initiated, broad-spectrum antibiotics, antiemetics pain control Concern for sepsis with success volume over an antibiotics ordered. Uncertain source. Is not pneumonia, do not suspect meningitis, not cellulitis. Patient is not hypotensive at this time Discussion: 73-year-old woman with recent diagnosis of cancer widely metastatic biopsied on the initially felt to be ovarian cancer possibility of a lymphoma was raised with initial pathology reports but final report is not available. She has not yet met with the oncologist. In 3 weeks she has had dramatic progression of tumor bulk with increasing pain nausea now with left hydronephrosis and invasion into the left kidney. Increasing pericardial involvement increased lymph nodes enlarged tumor burden dramatically increased healing almost the entire lower pelvis. Findings reviewed with the patient her son and daughter. Given the dramatic progression in 3 weeks prognosis is poor. In discussion with , Oncology, there is 1 very specific subtype of lymphoma that can be sensitive to chemotherapy and if that does end up being her pathologic diagnosis she might benefit from shrinking the overall tumor volume. He is going to follow up with the [facility] in the morning and we will call to [facility] I discussed with the hospitalist physician. In the meantime, patient is very pragmatic and has a wonderfully graceful approach to the horrific news she is received tonight. She is far more inclined to consider hospice. We have not adequately controlled her pain with Dilaudid or Zofran at this point. We will add a 25 mcg fentanyl patch, we will continue to titrate IV Dilaudid to see if we can get her to the point where pain is tolerable but she is still alert and can participate with family members. At 9:00 p.m. and pain in adequately controlled we will suggest hospital admission in anticipation of hospice consult and discharge. Extensive family discussion was entertained, questions were answered. Discharge Plan Departure Patient Disposition: Home Clinical Impression: Carcinomatosis, Intractable abdominal pain, Hydronephrosis of left kidney
[2023-10-12 18:19] LABS: pH Urine UA 5.5 (4.5-8.0)
[2023-10-12 18:21] LABS: Ur Creatinine Normal (Normal); Ur Specific Gravity Normal (Normal); Urine Amphetamines Negative (Negative); Urine Barbiturates Negative (Negative); Urine Benzodiazepines Negative (Negative); Urine Cocaine Negative (Negative); Urine MDMA Negative (Negative); Urine Methadone Negative (Negative); Urine Methamphetamines Negative (Negative); Urine Opiates Negative (Negative); Urine Oxycodone Positive (Negative); Urine Phencyclidine Negative (Negative); Urine THC Negative (Negative); Urine Tricyclic Antidepressant Negative (Negative); Urine pH Normal (Normal)
[2023-10-12 18:23] LABS: Ictotest Urine Negative (Negative)
--- NOTE | 2023-10-12 18:32 | DI.CT.S_ITS ---
PROCEDURE: CT ABDOMEN PELVIS W CON INDICATIONS: sepsis TECHNIQUE: After the administration of intravenous contrast, axial sections acquired from the lung bases to the pubic symphysis. Coronal and sagittal reformats were performed. For radiation dose reduction, the following was used: automated exposure control, adjustment of mA and/or kV according to patient size. COMPARISON: [facility], CT, CT ABDOMEN PELVIS W CON, 09/15/2023, 19:39. FINDINGS: Image quality: Diagnostic. Lower Chest: [id number] right effusion new compared to prior exam. Minimal pericardial effusion. There is a circumscribed focus along the anterior pericardial sac measuring 1.6 x 2.4 cm Hounsfield units measure 52. This was present on prior exam measuring 0.5 x 1.0 cm. There is been interval appearance and enlargement of similar foci along the right pericardial fat the largest measuring 2.8 cm compared to 1.2 cm. ABDOMEN: Liver: No solid mass. Gallbladder: No radiopaque gallstones or wall thickening. Biliary ducts: No biliary dilation. Pancreas: No ductal dilation. Spleen: Size is within normal limits. Adrenal Glands: No adrenal nodules. Kidneys and Ureters: There is persistent appearance prominent left hydronephrosis. As described below there is encasement of the renal pelvis and proximal ureter within the periaortic mass. Stomach and Bowel: Normal colonic caliber, without significant wall thickening. Peritoneum: There is been marked interval enlargement periaortic soft tissue confluent mass currently measuring 6.8 x 10.4 cm compared to 4.3 x 6.3 cm. The soft tissue mass has extended with invasion into the left renal pelvis. In addition, previous pelvic masses have enlarged and become confluent with near complete filling of the pelvis and lower abdomen. More isolated anterior abdominal masses have increased in size and number compared to prior exam. The bladder is displaced anteriorly with the catheter. Ventral Wall: No significant ventral hernia. Vessels: Aorta and inferior vena cava are normal in size. PELVIS: Pelvic Organs: Unremarkable. Bladder: No bladder wall thickening, accounting for underdistention. Pelvic Nodes: No enlarged lymph nodes. Miscellaneous: No inguinal hernias are seen. Bones: No aggressive osseous abnormality. IMPRESSION: Interval [id number] right effusion. Interval development of pericardial nodularities. Findings are concerning for malignancy. Marked enlargement and development of new abdominal and pelvic masses with near complete confluent mass appearance within the lower abdomen and pelvis, consistent with malignancy. Marked enlarged retroaortic soft tissue mass with invasion and encasement of the left renal pelvis with persistent hydronephrosis consistent with malignancy. Dictated by: Sarah Mccurdy M.D. on 10/12/2023 at 19:46 Approved by: Sarah Mccurdy M.D. on 10/12/2023 at 19:53
[2023-10-12] MEDS: SODIUM CHLORIDE 0.9% 2,109.21 ML 703.07 ML IV (18:47)
[2023-10-12] MEDS: CEFEPIME 2 GM in SODIUM CHLORIDE 0.9% 100 ML IV (18:48)
[2023-10-12 18:50] LABS: Reflexed Lactate in 2 Hours Y
[2023-10-12 18:56] LABS: Bacteria Urine None Seen; Culture Indicated Urine Cult Not Indicated; Granular Casts Urine 1-5/LPF; Hyaline Casts Urine 1-5/LPF; RBC Urine None Seen (0-5/HPF); Squamous Epithelial Cell Urine 0-1 /HPF (0-5/HPF); Urine Volume 10mL (spun); WBC Urine 0-1/HPF (0-5/HPF)
[2023-10-12] MEDS: HYDROMORPHONE 0.5 MG INJ IV ×2 (19:17→22:50)
[2023-10-12 19:33] LABS: Lactate 2HR (Lactic Acid Rflx) 5.6 mmol/L (0.7-2.1)
[2023-10-12] MEDS: VANCOMYCIN 1,000 MG/200 ML PIGGYBACK 200 MG IV (19:48)
[2023-10-12] MEDS: PROCHLORPERAZINE 10 MG/2 ML VIAL IV (21:28)
[2023-10-12] MEDS: fentaNYL 25 MCG/PATCH TOP (21:31)
[2023-10-12] MEDS: SODIUM CHLORIDE 0.9% 1,000 ML 150 ML IV (21:35)
[2023-10-13] VITALS (7 sets, daily range): BP systolic 141–157; BP diastolic 75–83; PULSE 98–114; RESP 15–18; TEMP 36.6–37.8; O2SAT 94–95
[2023-10-13] MEDS: GABAPENTIN 300 MG CAPSULE PO (00:04)
[2023-10-13] MEDS: HYDROMORPHONE 0.5 MG INJ IV ×2 (01:15→05:44)
[2023-10-13] MEDS: ACETAMINOPHEN 325 MG TABLET 650 MG PO (01:46)
--- NOTE | 2023-10-13 05:14 | P.HP_ITS ---
History of Present Illness History of Present Illness Date Patient Seen: 10/12/23 Time Patient Seen: 23:10 Chief complaint: has an increase in weakness and abdominal pain Narrative: 73 years old female with a past medical history of presumed ovarian cancer versus lymphoma/metastatic pelvic mass, hypertension and multiple other medical issues presented emergency room for increasing abdominal pain with generalized weakness and fatigue delirium/with. The oral intake has been poor and patient was not able to. Patient is in the process of getting diagnosis confirmation was scheduled to see oncology at [facility] on the . There was also discussion possible lymphoma versus other underlying malignancy. Currently patient appears fatigued though she is able to answer questions. In the ED, was noted to be tachycardic and labs revealed a white count of 21.5 with a hemoglobin of 11.2, BUN of 41 and a creatinine of 1.2. Ammonia is 15. Urinalysis negative for leukocyte esterase. Urine tox screen is negative except for oxycodone. CT scan of the abdomen showed marked interval enlargement of the periaortic soft tissue with invasion into the left renal pelvis and near complete filling of the pelvis and lower abdomen. Subsequently emergency room provider discussed with oncology at [facility] but unfortunately at this time final pathology is not available. Goals of care discussion was held with the patient/family. They are accepting of the possible poor prognosis and I requested focus on quality of life with comfort care and possible hospice. 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 Mixed hyperlipidemia Breast cancer screening Serum calcium elevated Post traumatic stress disorder (PTSD) (~1989) Osteoporosis (~2009) History of recurrent ear infection (~1950) ADD (attention deficit disorder) Spondylarthritis Depression DJD (degenerative joint disease) Back pain (~2009) Surgical History Anesthesia History of thumb surgery History of section History of carpal tunnel release (~2005) Hx of laminectomy S/P total knee arthroplasty (~01/2016) Hx of total knee arthroplasty (~05/2017) Family History Father Mental health problem Mother Mental health problem Social History household members: spouse Smoking Status: Former smoker alcohol intake: never Meds Home Medications and Allergies Home Medications Medication Instructions Recorded Confirmed Type alendronate 70 mg tablet (Fosamax) 70 mg PO QWEEK 08/10/18 10/12/23 History aspirin 81 mg tablet,delayed 81 mg PO DAILY 08/10/18 10/12/23 History release (Adult Low Dose Aspirin) folic acid 1 mg tablet 1 mg PO DAILY #0 tabs 08/10/18 10/12/23 History multivitamin (Daily Multi-Vitamin 1 tab PO DAILY 08/10/18 10/12/23 History tablet) sulfasalazine 500 mg tablet 500 mg PO TID #0 tabs 08/10/18 10/12/23 History (Azulfidine) gabapentin 300 mg capsule 300 mg PO TID #270 caps 04/20/23 10/12/23 Rx amlodipine 5 mg tablet 5 mg PO DAILY #90 tabs 08/18/23 10/12/23 Rx golimumab 12.5 mg/mL intravenous 100 mg IV Q8W 08/18/23 10/12/23 History solution (Simponi ARIA) sennosides 8.6 mg capsule (senna) See Rx Instructions .Route 09/24/23 10/12/23 Rx .COMPLEX PRN constipation #1 cap ondansetron 4 mg disintegrating 4 mg PO Q6H PRN nausea and 10/05/23 10/12/23 Rx tablet vomiting #60 tabs docusate sodium 100 mg capsule See Rx Instructions .Route 10/12/23 10/12/23 History (Colace) .COMPLEX PRN Constipation estradiol 0.01% (0.1 mg/gram) 1.5 g vaginal 2XW 10/12/23 10/12/23 History vaginal cream losartan 25 mg tablet 25 mg PO DAILY 10/12/23 10/12/23 History oxycodone 5 mg tablet 5 mg PO Q4H PRN pain 10/12/23 10/12/23 History Allergies Allergy/AdvReac Type Severity Reaction Status Date / Time codeine [CODEINE] Allergy Intermediate Rash Verified 09/29/23 14:21 Penicillins [PENICILLINS] Allergy Intermediate Rash Verified 09/29/23 14:21 prednisone AdvReac Severe Confusion Verified 09/29/23 14:21 tramadol AdvReac Severe Confusion Verified 09/29/23 14:21 lisinopril AdvReac Intermediate Cough Verified 09/29/23 14:21 celecoxib [From Celebrex] AdvReac Unknown Verified 09/29/23 14:21 Review of Systems Review of Systems Narrative: appears to be in pain and not able to give good history Exam Vital Signs (past 8 hours): - 10/12/23 21:28 10/12/23 21:30 10/12/23 21:30 Temperature 99.9 F H Pulse Rate 103 H 103 H Respiratory Rate 18 Blood Pressure 157/71 H 155/70 H Pulse Oximetry 95 Oxygen Delivery Method Oxygen Flow Rate 10/12/23 22:00 10/12/23 22:00 10/12/23 22:05 Temperature 99.9 F H Pulse Rate 110 H Respiratory Rate 20 Blood Pressure 148/67 H Pulse Oximetry 96 Oxygen Delivery Method Room Air Room Air Oxygen Flow Rate 10/12/23 22:16 10/12/23 22:25 10/13/23 01:26 Temperature 99.7 F H 98.8 F 100.1 F H Pulse Rate 111 H 108 H Respiratory Rate 16 16 Blood Pressure 152/80 H 151/83 H Pulse Oximetry 94 94 Oxygen Delivery Method Oxygen Flow Rate 0 0 10/13/23 01:46 10/13/23 02:15 Temperature 100.1 F H 98.2 F Pulse Rate Respiratory Rate Blood Pressure Pulse Oximetry Oxygen Delivery Method Oxygen Flow Rate Oxygen Delivery Method Room Air Oxygen Flow Rate 0 Narrative Exam Narrative: appears to be in pain and not able to give good history Objective Labs 10/12/23 16:50 10/12/23 16:50 Labs: Laboratory Results - last 24 hr 10/12/23 10/12/23 10/12/23 16:50 17:44 17:44 WBC 21.5 H RBC 3.48 L Hgb 11.2 L Hct 33.8 L MCV 97.1 MCH 32.1 MCHC 33.1 RDW 14.0 Plt Count 207 Neut % (Auto) Not Reportable Lymph % (Auto) Not Reportable Aiken % (Auto) Not Reportable Eos % (Auto) Not Reportable Baso % (Auto) Not Reportable Lymph # (Auto) Not Reportable Aiken # (Auto) Not Reportable Baso # (Auto) Not Reportable Total Counted 100 Seg Neutrophils % 90.0 H Band Neutrophils % 1.0 L Lymphocytes % (Manual) 2.0 L Atypical Lymphs % 1.0 H Monocytes % (Manual) 6.0 Neutrophils # (Manual) 13156 H RBC Morphology See below Hypochromasia 1+ H Anisocytosis 1+ H Spherocytes 1+ H PT 14.6 H INR 1.3 APTT 28 Sodium 139 Potassium 4.3 Chloride 104 Carbon Dioxide 16 L BUN 41 H Creatinine 1.21 H Estimated GFR 47 L BUN/Creatinine Ratio 33.9 H Glucose 87 Lactate 6.2 H* Calcium 11.9 H Total Bilirubin 1.0 AST 208 H ALT 27 Alkaline Phosphatase 117 Ammonia 15 Total Protein 6.4 Albumin 3.5 Globulin 2.9 Albumin/Globulin Ratio 1.2 Lipase 22 L Procalcitonin 0.319 Urine Color Yellow Urine Appearance Clear Urine pH 5.5 Normal Ur Specific [place] >=1.030 H Urine Protein 1+ H Urine Glucose (UA) Negative Urine Ketones 1+ H Urine Occult Blood Negative Urine Nitrate Negative Urine Bilirubin 2+ H Ur Bilirubin Confirm Negative Urine Urobilinogen 1.0 Ur Leukocyte Esterase Negative Urine RBC None seen Urine WBC 0-1/hpf Ur Squamous Epith Cells 0-1 /hpf Urine Bacteria None seen Hyaline Casts 1-5/lpf Granular Casts 1-5/lpf Ur Culture Indicated? Cult not indicated Vol Urine Centrifuged 10ml (spun) U Opiates 300ng/mL cut Negative Ur Oxycodone Screen Positive H Urine Methadone Screen Negative Ur Barbiturates Screen Negative U Tricyclic Antidepress Negative Ur Phencyclidine Scrn Negative Ur Amphetamines Screen Negative U Methamphetamines Scrn Negative Ur MDMA Scrn (Ecstasy) Negative U Benzodiazepines Scrn Negative Urine Cocaine Screen Negative U Marijuana (THC) Screen Negative Urine Specific [place] Normal Ur Creatinine Normal 10/12/23 18:50 WBC RBC Hgb Hct MCV MCH MCHC RDW Plt Count Neut % (Auto) Lymph % (Auto) Aiken % (Auto) Eos % (Auto) Baso % (Auto) Lymph # (Auto) Aiken # (Auto) Baso # (Auto) Total Counted Seg Neutrophils % Band Neutrophils % Lymphocytes % (Manual) Atypical Lymphs % Monocytes % (Manual) Neutrophils # (Manual) RBC Morphology Hypochromasia Anisocytosis Spherocytes PT INR APTT Sodium Potassium Chloride Carbon Dioxide BUN Creatinine Estimated GFR BUN/Creatinine Ratio Glucose Lactate 5.6 H* Calcium Total Bilirubin AST ALT Alkaline Phosphatase Ammonia Total Protein Albumin Globulin Albumin/Globulin Ratio Lipase Procalcitonin Urine Color Urine Appearance Urine pH Ur Specific [place] Urine Protein Urine Glucose (UA) Urine Ketones Urine Occult Blood Urine Nitrate Urine Bilirubin Ur Bilirubin Confirm Urine Urobilinogen Ur Leukocyte Esterase Urine RBC Urine WBC Ur Squamous Epith Cells Urine Bacteria Hyaline Casts Granular Casts Ur Culture Indicated? Vol Urine Centrifuged U Opiates 300ng/mL cut Ur Oxycodone Screen Urine Methadone Screen Ur Barbiturates Screen U Tricyclic Antidepress Ur Phencyclidine Scrn Ur Amphetamines Screen U Methamphetamines Scrn Ur MDMA Scrn (Ecstasy) U Benzodiazepines Scrn Urine Cocaine Screen U Marijuana (THC) Screen Urine Specific [place] Ur Creatinine Assessment & Plan Assessment & Plan narrative: 73 years old female with a past medical history of presumed ovarian cancer versus lymphoma/metastatic pelvic mass, hypertension and multiple other medical issues presented emergency room for increasing abdominal pain with generalized weakness and fatigue delirium/with. The oral intake has been poor and patient was not able to. Patient is in the process of getting diagnosis confirmation was scheduled to see oncology at [facility] on the . There was also discussion possible lymphoma versus other underlying malignancy. Currently patient appears fatigued though she is able to answer questions. In the ED, was noted to be tachycardic and labs revealed a white count of 21.5 with a hemoglobin of 11.2, BUN of 41 and a creatinine of 1.2. Ammonia is 15. Urinalysis negative for leukocyte esterase. Urine tox screen is negative except for oxycodone. CT scan of the abdomen showed marked interval enlargement of the periaortic soft tissue with invasion into the left renal pelvis and near complete filling of the pelvis and lower abdomen. Subsequently emergency room provider discussed with oncology at [facility] but unfortunately at this time final pathology is not available. Goals of care discussion was held with the patient/family. They are accepting of the possible poor prognosis and I requested focus on quality of life with comfort care and possible hospice. Patient was admitted for symptom management 01 metastatic pelvic mass invasive into the entire pelvic region and lower abdomen #2 abdominal pain intractable #3 nausea #4 failure to thrive with poor nutrition #5 hydronephrosis of the left kidney 6 extensive carcinomatosis Plan Following external discussion, family/patient have opted for quality of life with comfort care measures. Currently patient is DNR comfort care. Initiate Dilaudid for pain control with Zofran for nausea and vomiting. May eventually transition to oral morphine/ Referral to hospice. Prognosis is poor Patient was evaluated with a video communication device. Location of the patient is [facility] in [facility] Time-Based Coding :: [TOTAL MINUTES] spent with patient and on the chart (including review of chart, obtaining history, exam, reviewing outside data, placing orders, documenting exam and treatment plan, and counseling patient) on [DATE]. Quality VTE Deep Vein Thrombosis/Pulmonary Embolism Present on Admission: No
--- NOTE | 2023-10-13 07:39 | PC.NURSE ---
Admit/NOC Shift Note- Patient arrived to room via stretcher from ER. Patient alert and oriented and able to make needs known to staff. Daughter and at patients side. Admit questions done, medications reviewed, physical assessment done, and skin check completed. Patient oriented to bed and bed controls, room, lights, phone, menu, and call burk/tv remote. Safety measures in place. Bed alarm activated. Patient agrees to call for assistance.
[2023-10-13] MEDS: HYDROMORPHONE 0.5 MG INJ 1 MG IV ×2 (07:51→14:08)
[2023-10-13] MEDS: PROCHLORPERAZINE 10 MG/2 ML VIAL IV ×2 (07:54→23:55)
--- NOTE | 2023-10-13 09:05 | PM.CALLCOV.1 ---
Call Coverage Note Note Narrative of Care Provided: Admitted overnight to the hospitalist service. Needed to increase pain medication this morning. Patient is seen by Dr. Villatoro as an outpatient, discussed with Dr. Villatoro and she will take over today. Please do not hesitate to reach out to hospitalist with additional questions or if consultation is needed
--- NOTE | 2023-10-13 12:43 | PC.NURSE ---
Addendum entered by Melanie Nam R.N. 10/13/23 14:24: Patient was complaining of pain, family requested that we try only 0.5mg of iv dilaudid instead of the full 1mg. She is resting comfortably. Original Note: Patient given 1mg of iv dilaudid this morning and she has been comfortable. She did have some breathing with periods of apnea lasting less thant 10 seconds. Patient is a DNR. Family in room with patient and she is comfortable.
[2023-10-13] MEDS: SODIUM CHLORIDE 0.9% 1,000 ML 75 ML IV (13:00)
--- NOTE | 2023-10-13 13:52 | CM.DANOTE ---
Initial DCP Assessment Visit Note Reviewed EMR and team rounds for status updates. Met with pt, spouse, and dtr at bedside to introduce self and role. Pt was found to be sleeping at the time. Discussed Hospice services and provided information re: their questions. Plan for d/c is home with hospice, transport type will be confirmed at that time, based on pt functioning and comfort needs. Payor: Medicare PCP: Dr. Villatoro Pt is a 73 year-old F who presented to the ED via EMS last evening. She was just recently dx with presumed ovarian cancer, however pathology has not yet been available as they are ruling out possible lymphoma as well. She presented with increased confusion, weakness, and abdominal pain. She was initially followed by the , however she does also have a pending ONC consult at [facility] on 10/13, if pathology indicates a possible tx option for her. CT abd/pelivis revealed increased size of her abdominal masses that have now completely filled up her pelvis and lower abdomen. Chest CT also showed multiple bilateral lung nodules and a persistent right-pleural effusion. She was started on IV antibiotics, fluids, and IV pain management. Family had a lengthy goals of care conversation with family, during which they have opted to start the referral and arrange for admit to hospice at d/c, although they will likely revoke if pathology indicated a certain type of lymphoma that has a potential tx. Her spouse did share that she probably won't want tx anyway. Family are understandably shocked by the rapid diseases progression since her biopsy at the . This SOFTWARE VALIDATION TECHNICIAN did provide supportive counseling and reassurance. Faxed the referral to [facility] . Pending response and date for admit. DCP will continue to follow and assist with transition to hospice as well as any further evolving needs/resources prior to d/c. Discharge Planning/Care Management CM Discharge Assessment Start: 10/13/23 13:48 Freq: Status: Active Protocol: Document 10/13/23 13:48 DPL (Rec: 10/13/23 13:51 DPL [id number]) Discharge Planning Assessment Assigned Auto Clocks Repairer SELENA Ruelas Advance Directives? No History Provided By Family Member,Significant Other Has Patient been admitted in last 30 No days? Prior Living Arrangements House Household Members spouse Type of transporation used prior to Relies on Others admit Independent with ADL's Yes Is patient alert and oriented? Yes Needs Assistance With Home Chores / Shopping Comment Home with hospice. Barriers to Discharge No Discharge Plan Home Community Services Hospice Transportation Arrangement Pending-BLS or cabulance Whiteboard Updated in Patient Room with Yes name and ext. # of Auto Clocks Repairer Review Status In Process Please Provide Date Initial DC 10/13/23 Assessment Was Performed
--- NOTE | 2023-10-13 14:00 | PM.PN.1 ---
Subjective Subjective Date Patient Seen: 10/13/23 Time Patient Seen: 12:30 Interval history: Care of patient assumed from the hospitalist service. Reviewed ED and hospitalist notes. In summary, pt was admitted with intractable pain due to metastatic cancer of unknown primary at this point. Awaiting biopsy result from 10/01. The pt was also noted to have altered mental status at admission. In the ED, the pt was noted to be tachycardic and labs showed an elevated WBC count, mild anemia, and minimally elevated creatinine. CT abd/pelvis showed marked enlargement of the previously identified mass, with invasion into the left renal pelvis. The pt was admitted for pain control and ongoing decision making regarding ongoing care. The pt was sleeping during the time of my encounter, history obtained from her and daughter. They report she has had a very rapid decline in the last 2-3 days. Her oral intake has declined to nearly nothing due to significant nausea. She has become very weak, to the point that her is unable to move her at home. When she takes the pain medication, she basically sleeps but whenever she is awake she has severe abdominal pain. She has intermittent periods of lucidity, but in general has been confused. Since being in the hospital and receiving increasing dilaudid doses this morning, she has been resting comfortably. Exam Vital Signs (past 8 hours): - 10/13/23 08:00 Temperature 97.9 F Pulse Rate 105 H Respiratory Rate 18 Blood Pressure 146/83 H Pulse Oximetry 95 Oxygen Flow Rate 0 Oxygen Delivery Method Room Air Oxygen Flow Rate 0 Narrative Exam Narrative: Deferred today due to the pt resting comfortably at present Objective Labs 10/12/23 16:50 10/12/23 16:50 Labs: Laboratory Results - last 24 hr 10/12/23 10/12/23 10/12/23 16:50 17:44 17:44 WBC 21.5 H RBC 3.48 L Hgb 11.2 L Hct 33.8 L MCV 97.1 MCH 32.1 MCHC 33.1 RDW 14.0 Plt Count 207 Neut % (Auto) Not Reportable Lymph % (Auto) Not Reportable Victoria % (Auto) Not Reportable Eos % (Auto) Not Reportable Baso % (Auto) Not Reportable Lymph # (Auto) Not Reportable Victoria # (Auto) Not Reportable Baso # (Auto) Not Reportable Total Counted 100 Seg Neutrophils % 90.0 H Band Neutrophils % 1.0 L Lymphocytes % (Manual) 2.0 L Atypical Lymphs % 1.0 H Monocytes % (Manual) 6.0 Neutrophils # (Manual) 84547 H RBC Morphology See below Hypochromasia 1+ H Anisocytosis 1+ H Spherocytes 1+ H PT 14.6 H INR 1.3 APTT 28 Sodium 139 Potassium 4.3 Chloride 104 Carbon Dioxide 16 L BUN 41 H Creatinine 1.21 H Estimated GFR 47 L BUN/Creatinine Ratio 33.9 H Glucose 87 Lactate 6.2 H* Calcium 11.9 H Total Bilirubin 1.0 AST 208 H ALT 27 Alkaline Phosphatase 117 Ammonia 15 Total Protein 6.4 Albumin 3.5 Globulin 2.9 Albumin/Globulin Ratio 1.2 Lipase 22 L Procalcitonin 0.319 Urine Color Yellow Urine Appearance Clear Urine pH 5.5 Normal Ur Specific Justin >=1.030 H Urine Protein 1+ H Urine Glucose (UA) Negative Urine Ketones 1+ H Urine Occult Blood Negative Urine Nitrate Negative Urine Bilirubin 2+ H Ur Bilirubin Confirm Negative Urine Urobilinogen 1.0 Ur Leukocyte Esterase Negative Urine RBC None seen Urine WBC 0-1/hpf Ur Squamous Epith Cells 0-1 /hpf Urine Bacteria None seen Hyaline Casts 1-5/lpf Granular Casts 1-5/lpf Ur Culture Indicated? Cult not indicated Vol Urine Centrifuged 10ml (spun) U Opiates 300ng/mL cut Negative Ur Oxycodone Screen Positive H Urine Methadone Screen Negative Ur Barbiturates Screen Negative U Tricyclic Antidepress Negative Ur Phencyclidine Scrn Negative Ur Amphetamines Screen Negative U Methamphetamines Scrn Negative Ur MDMA Scrn (Ecstasy) Negative U Benzodiazepines Scrn Negative Urine Cocaine Screen Negative U Marijuana (THC) Screen Negative Urine Specific Justin Normal Ur Creatinine Normal 10/12/23 18:50 WBC RBC Hgb Hct MCV MCH MCHC RDW Plt Count Neut % (Auto) Lymph % (Auto) Victoria % (Auto) Eos % (Auto) Baso % (Auto) Lymph # (Auto) Victoria # (Auto) Baso # (Auto) Total Counted Seg Neutrophils % Band Neutrophils % Lymphocytes % (Manual) Atypical Lymphs % Monocytes % (Manual) Neutrophils # (Manual) RBC Morphology Hypochromasia Anisocytosis Spherocytes PT INR APTT Sodium Potassium Chloride Carbon Dioxide BUN Creatinine Estimated GFR BUN/Creatinine Ratio Glucose Lactate 5.6 H* Calcium Total Bilirubin AST ALT Alkaline Phosphatase Ammonia Total Protein Albumin Globulin Albumin/Globulin Ratio Lipase Procalcitonin Urine Color Urine Appearance Urine pH Ur Specific Justin Urine Protein Urine Glucose (UA) Urine Ketones Urine Occult Blood Urine Nitrate Urine Bilirubin Ur Bilirubin Confirm Urine Urobilinogen Ur Leukocyte Esterase Urine RBC Urine WBC Ur Squamous Epith Cells Urine Bacteria Hyaline Casts Granular Casts Ur Culture Indicated? Vol Urine Centrifuged U Opiates 300ng/mL cut Ur Oxycodone Screen Urine Methadone Screen Ur Barbiturates Screen U Tricyclic Antidepress Ur Phencyclidine Scrn Ur Amphetamines Screen U Methamphetamines Scrn Ur MDMA Scrn (Ecstasy) U Benzodiazepines Scrn Urine Cocaine Screen U Marijuana (THC) Screen Urine Specific Justin Ur Creatinine PFS Medical History (Updated 10/12/23 @ 21:12 by Maria Elena Jeronimo MD) Constipation Pain of metastatic malignancy Hypertension Elevated LDL cholesterol level Other rn long term care (current) drug therapy Mixed hyperlipidemia Breast cancer screening Serum calcium elevated Post traumatic stress disorder (PTSD) (~1989) Osteoporosis (~2009) History of recurrent ear infection (~1950) ADD (attention deficit disorder) Spondylarthritis Depression DJD (degenerative joint disease) Back pain (~2009) Surgical History Anesthesia History of thumb surgery History of section History of carpal tunnel release (~2005) Hx of laminectomy S/P total knee arthroplasty (~01/2016) Hx of total knee arthroplasty (~05/2017) Family History Father Mental health problem Mother Mental health problem Social History household members: spouse Smoking Status: Former smoker alcohol intake: never Assessment & Plan Assessment & Plan narrative: 73yo woman with hypertension and osteoporosis, with new diagnosis of metastatic cancer of uncertain origin, who presented with intractable pain, delirium, and decreased PO intake. Pt found to have significantly increased cancer burden in her abdomen/pelvis on CT from the ED. Considering metastatic ovarian cancer vs lymphoma. Oncology through [facility] consulted last evening, suggested there is a more rare form of lymphoma that can respond relatively quickly to chemotherapy, which could give the pt additional months of life. The pts family is understanding of her exceedingly poor prognosis, but is still hoping for final pathology results prior to making any definitive decisions. Discussed comfort care with them today, which they are leaning towards, but for now would still like to continue IVF. The pts son and grandchildren are coming from out of town, and they are hoping they can see her during one of her more awake moments still. Discussed potential infection due to elevated WBC count but no other source of infection identified thus far. We will not continue antibiotics started in the ED last night at this point, but will trend out labs in the morning. Discussed with them the role of hospice care. We will initiate a referral today, with the understanding they can revoke in the future if desired. The pt is currently DNR/DNI, and we will not plan to escalate care beyond IVF at this point. The pts pain is better controlled with IV Dilaudid. Will add sublingual morphine as well, with the ultimate goal likely being discharge to home. Hopeful we can keep the pt comfortable with oral medications. The pts family are concerned about her being over-sedated. Discussed that unfortunately it is a balance with the pain control, and for now allowing her body to rest is good. Time-Based Coding :: 60 spent with patient and on the chart (including review of chart, obtaining history, exam, reviewing outside data, placing orders, documenting exam and treatment plan, and counseling patient) on 10/13/23. Quality VTE Deep Vein Thrombosis/Pulmonary Embolism Present on Admission: No IH PROFEE Charge codes Subsequent inpatient/observation care: 09896 Inpatient/observation prolonged services: 47957
[2023-10-13] MEDS: MORPHINE 10 MG/0.5 ML ORAL SYRINGE SL ×4 (15:43→22:37)
[2023-10-14] MEDS: HYDROMORPHONE 0.5 MG INJ 1 MG IV (01:53)
[2023-10-14] MEDS: MORPHINE 10 MG/0.5 ML ORAL SYRINGE SL ×6 (04:05→20:40)
[2023-10-14] MEDS: LORazepam 2 MG/ML INJ 0.5 MG IV ×3 (05:31→23:15)
[2023-10-14] MEDS: SODIUM CHLORIDE 0.9% 1,000 ML 75 ML IV (05:31)
[2023-10-14 05:55] LABS: Add Manual Diff / Slide Review NO; Basophils Absolute Auto 100 /uL (0-100); Basophils Percent Auto 0.4 % (0-2); Eosinophils Absolute Auto 0 /uL (0-450); Eosinophils Percent Auto 0.1 % (2-4); Hematocrit 31.3 % (36-46); Hemoglobin 10.4 g/dL (12.0-16.0); Lymphocytes Absolute Auto 1000 /uL (1100-4500); Lymphocytes Percent Auto 4.3 % (25-40); Mean Corpuscular HGB Conc 33.2 % (30-36); Mean Corpuscular Hemoglobin 32.5 PG (26-34); Mean Corpuscular Volume 97.7 fL (80-100); Monocytes Absolute Auto 2000 /uL (0-900); Monocytes Percent Auto 8.9 % (3-14); Neutrophils Absolute Auto 19100 /uL (1500-7000); Neutrophils Percent Auto 86.3 % (50-75); Platelet Count 185 X10^3/uL (150-400); Red Blood Cell Count 3.21 X10^6/uL (4.0-5.2); Red Cell Distribution Width 14.7 % (11.6-14.8); White Blood Cell Count 22.1 X10^3/uL (4.5-11.0)
[2023-10-14 06:00] LABS: Alanine Aminotransferase 22 IU/L (<35); Albumin 2.8 g/dL (3.5-5.0); Albumin Globulin Ratio 0.9 (1.0-2.8); Alkaline Phosphatase 107 U/L (38-126); Aspartate Aminotransferase 189 IU/L (14-36); Bilirubin Total 0.5 mg/dL (0.2-1.3); Blood Urea Nitrogen 48 mg/dL (7-17); Calcium 10.4 mg/dL (8.4-10.2); Carbon Dioxide 15 mmol/L (22-32); Chloride 107 mmol/L (98-107); Estimated Glomerular Filt Rate 24 mL/min (>60); Globulin 3.1 g/dL (1.7-4.1); Glucose 81 mg/dL (80-110); HEMOLYSIS < 15 (0-50); Potassium 4.4 mmol/L (3.4-5.1); Sodium 136 mmol/L (137-145); Total Protein 5.9 g/dL (6.3-8.2)
[2023-10-14 08:07] VITALS: BP 121/67; PULSE 89; RESP 19; TEMP 37.8; O2SAT 98
--- NOTE | 2023-10-14 11:03 | CM.DPC ---
DCP Cont. Reviewed EMR and team rounds for status updates. Faxed [facility] a second time to provide clinicals, pending their response for when they can open services. Plan for now is to continue acute pain management via IV. Monitoring closely for transition home w/hospice.
--- NOTE | 2023-10-14 14:06 | PM.PN.1 ---
Subjective Subjective Date Patient Seen: 10/14/23 Time Patient Seen: 12:00 Interval history: The pt remains comfortable sleeping. Her breathing has become slightly noisier, however no evidence of distress. She was lucid for a brief period of time last night and was able to visit with her son and grandchildren then. The pts daughter, son, and are present at bedside. They are primarily concerned about her remaining comfortable. Exam Vital Signs (past 8 hours): - 10/14/23 08:07 Temperature 100.0 F H Pulse Rate 89 Respiratory Rate 19 Blood Pressure 121/67 Pulse Oximetry 98 Oxygen Delivery Method Room Air Oxygen Flow Rate 0 Narrative Exam Narrative: Gen: Laying comfortably in bed, slightly agonal breathing Objective Labs 10/14/23 05:25 10/14/23 05:25 Labs: Laboratory Results - last 24 hr 10/14/23 05:25 WBC 22.1 H RBC 3.21 L Hgb 10.4 L Hct 31.3 L MCV 97.7 MCH 32.5 MCHC 33.2 RDW 14.7 Plt Count 185 Neut % (Auto) 86.3 H Lymph % (Auto) 4.3 L Rice % (Auto) 8.9 Eos % (Auto) 0.1 L Baso % (Auto) 0.4 Neut # (Auto) 98867 H Lymph # (Auto) 1000 L Rice # (Auto) 2000 H Eos # (Auto) 0 Baso # (Auto) 100 Sodium 136 L Potassium 4.4 Chloride 107 Carbon Dioxide 15 L BUN 48 H Creatinine 2.09 H Estimated GFR 24 L BUN/Creatinine Ratio 23.0 H Glucose 81 Calcium 10.4 H Total Bilirubin 0.5 AST 189 H ALT 22 Alkaline Phosphatase 107 Total Protein 5.9 L Albumin 2.8 L Globulin 3.1 Albumin/Globulin Ratio 0.9 L PFSH Medical History (Updated 10/12/23 @ 21:12 by Maria Elena Jeronimo MD) Constipation Pain of metastatic malignancy Hypertension Elevated LDL cholesterol level Other [facility]current[facility] drug therapy Mixed hyperlipidemia Breast cancer screening Serum calcium elevated Post traumatic stress disorder (PTSD) (~1989) Osteoporosis (~2009) History of recurrent ear infection (~1950) ADD (attention deficit disorder) Spondylarthritis Depression DJD (degenerative joint disease) Back pain (~2009) Surgical History Anesthesia History of thumb surgery History of section History of carpal tunnel release (~2005) Hx of laminectomy S/P total knee arthroplasty (~01/2016) Hx of total knee arthroplasty (~05/2017) Family History Father Mental health problem Mother Mental health problem Social History household members: spouse Smoking Status: Former smoker alcohol intake: never Assessment & Plan Assessment & Plan narrative: 73yo woman with hypertension and osteoporosis, with new diagnosis of metastatic cancer of uncertain origin, who presented with intractable pain, delirium, and decreased PO intake. Pt found to have significantly increased cancer burden in her abdomen/pelvis on CT from the ED. 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 Again discussed goals of care. With increasing creatinine and significantly decreased urine output, and now with breathing becoming slightly more labored, believe is likely imminent. Will discontinue IVF now. Pts family in agreement with transition to full comfort care. Scopolamine patch ordered to help with secretions. Pts pain overall seems to be well controlled at this point. Hospice referral was placed yesterday. Time-Based Coding :: 55 spent with patient and on the chart (including review of chart, obtaining history, exam, reviewing outside data, placing orders, documenting exam and treatment plan, and counseling patient) on 10/14/23. Quality VTE Deep Vein Thrombosis/Pulmonary Embolism Present on Admission: No IH PROFEE Charge codes Subsequent inpatient/observation care: 32412
[2023-10-14] MEDS: SCOPOLAMINE 1 PATCH TOP (14:38)
[2023-10-15] MEDS: MORPHINE 10 MG/0.5 ML ORAL SYRINGE SL ×3 (02:29→05:05)
[2023-10-15] MEDS: HYDROMORPHONE 0.5 MG INJ 1 MG IV (03:36)
[2023-10-15] MEDS: LORazepam 2 MG/ML INJ 0.5 MG IV (03:36)
--- NOTE | 2023-10-15 05:50 | PC.NURSE ---
At 0540 just at time of reassessment for pain medication family came to door and and notified that patient was no longer breathing, Listened with stethocscope and no heart sounds and respirations heard. Pt asking for patient to be sent to [facility] home in [place].. Family still at bedside. Patient positioned flat. post mortem care to be provided after family leaves
--- NOTE | 2023-10-15 22:44 | PM.DDS.1 ---
Discharge Summary History of Illness Narrative: 73 years old female with a past medical history of presumed ovarian cancer versus lymphoma/metastatic pelvic mass, hypertension and multiple other medical issues presented emergency room for increasing abdominal pain with generalized weakness and fatigue delirium/with. The oral intake has been poor and patient was not able to. Patient is in the process of getting diagnosis confirmation was scheduled to see oncology at [facility] on the . There was also discussion possible lymphoma versus other underlying malignancy. Currently patient appears fatigued though she is able to answer questions. In the ED, was noted to be tachycardic and labs revealed a white count of 21.5 with a hemoglobin of 11.2, BUN of 41 and a creatinine of 1.2. Ammonia is 15. Urinalysis negative for leukocyte esterase. Urine tox screen is negative except for oxycodone. CT scan of the abdomen showed marked interval enlargement of the periaortic soft tissue with invasion into the left renal pelvis and near complete filling of the pelvis and lower abdomen. Subsequently emergency room provider discussed with oncology at [facility] but unfortunately at this time final pathology is not available. Goals of care discussion was held with the patient/family. They are accepting of the possible poor prognosis and I requested focus on quality of life with comfort care and possible hospice. Patient was admitted for symptom management Hospital Course Date of Admission: 10/12/23 21:35 Date of : 10/15/23 Primary care provider: Mariola Villatoro MD Consults: None Discharge provider: Mariola Villatoro MD Discharge Diagnosis: metastatic pelvic mass invasive into the entire pelvic region and lower abdomen abdominal pain intractable nausea failure to thrive with poor nutrition hydronephrosis of the left kidney extensive carcinomatosis B cell lymphoma Hospital Course: The pt presented with intractable abdominal pain due to extensive pelvic/abdominal mass with failure to thrive at home and delirium. She initially received antibiotics in the ED, however these were not continued as no source of infection was found. The pts pain was controlled with oral and IV narcotic pain medications. She initially was on mIVF, however the pts family decided to transition to full comfort care measures and these were discontinued. The pt less than 24hrs after this decision. Objective Labs 10/14/23 05:25 10/14/23 05:25
== END 2023-10-15 08:40 | disposition expired | DRG 951 ==
LOC: ED 21:15 → AC 22:22
PROVIDERS: Emergency Medicine; Admitting Provider Internal Medicine; Emergency Provider Emergency Medicine; Family Provider Nurse Practitioner; PCP Family Medicine; Visit Provider Family Medicine
DX: Z51.5 Encounter for palliative care (principal); C80.0 Disseminated malignant neoplasm, unspecified; J90 Pleural effusion, not elsewhere classified; I31.39 Other pericardial effusion (noninflammatory); N13.30 Unspecified hydronephrosis; C85.16 Unspecified B-cell lymphoma, intrapelvic lymph nodes; R62.7 Adult failure to thrive; Z87.891 Personal history of nicotine dependence; Z66 Do not resuscitate; R10.9 Unspecified abdominal pain
CPT/HCPCS: 36415; 71045; 74177; 80053; 80305; 81001; 82140; 83605; 83690; 84145; 85007; 85025; 85610; 85730; 87040; 93005; 96365; 96367; 96375; 99233; 99285; J0692; J0780; J1170; J2060; J2405; Q9967